=== PATIENT | female | born 1930 | race Caucasian/White ===

== ENCOUNTER → 2016-12-03 | Outpatient (CLI) | payer MEDICARE, OTHER ==
[~2016-12-03] MED LIST: AMLO1CAP12 PO; ASCO10007 PO; ASPI-557 PO; CALC600T12 PO; CHOL100055 PO; CITA10TA7 PO; CYAN10009 PO; HYDR-3989 PO; MAGN250T33 PO; METF500T4 PO; NIAC50TA4 PO; PSYL1WAF3 PO; SALINE FLUSH 10ml SYRINGE IVF ONE; SULF1TAB3 PO; VITA-358 PO
== END ==
LOC: NWCC 14:06
PROVIDERS: ATTEND Internal Medicine
DX: T81.89XA Other complications of procedures, not elsewhere classified, initial encounter (principal); Y83.8 Other surgical procedures as the cause of abnormal reaction of the patient, or of later complication, without mention of misadventure at the time of the procedure
CPT/HCPCS: 11042; A6021; A6210; A6237

== ENCOUNTER → 2016-12-17 | Outpatient (CLI) | payer MEDICARE, OTHER ==
[~2016-12-17] MED LIST changes: -SALINE FLUSH 10ml SYRINGE IVF ONE
== END ==
LOC: NWCC 11:23
PROVIDERS: ATTEND Internal Medicine
DX: T81.89XA Other complications of procedures, not elsewhere classified, initial encounter (principal); Y83.8 Other surgical procedures as the cause of abnormal reaction of the patient, or of later complication, without mention of misadventure at the time of the procedure; B96.89 Other specified bacterial agents as the cause of diseases classified elsewhere
CPT/HCPCS: 11042; 87070; 87075; 87147; 87186; 87205; A6021; A6209

== ENCOUNTER → 2016-12-31 | Outpatient (CLI) | payer MEDICARE, OTHER ==
[~2016-12-31] MED LIST changes: +APIX5TAB PO; +BENA10TA3 PO; +BENA20TA3 PO; +CYAN1TAB46 PO; +DIGO125T PO; +FURO20TA4 PO; +FURO40TA5 PO; +LEVO500T88 PO; +METO-482 PO; +POTA-81 PO; +POTA10TA16 PO
== END ==
LOC: NWCC 13:30
PROVIDERS: ATTEND Internal Medicine
DX: T81.89XA Other complications of procedures, not elsewhere classified, initial encounter (principal); Y83.8 Other surgical procedures as the cause of abnormal reaction of the patient, or of later complication, without mention of misadventure at the time of the procedure; Z87.898 Personal history of other specified conditions
CPT/HCPCS: A6021; A6209; G0463

== ENCOUNTER 2017-01-08 10:50 | Inpatient (IN) | payer MEDICARE, OTHER ==
[~2017-01-08] VITALS: Ht 165.1 cm; Wt 56.7 kg
[~2017-01-08 10:50] MED LIST changes: -APIX5TAB PO; -BENA10TA3 PO; -BENA20TA3 PO; -CYAN1TAB46 PO; -DIGO125T PO; -FURO20TA4 PO; -FURO40TA5 PO; -LEVO500T88 PO; -METO-482 PO; -POTA-81 PO; -POTA10TA16 PO
--- OUTSIDE RECORDS SUMMARY | 2017-01-08 10:54 | XMS REPORT | Referral Summary ---
Author Author [facility] Organization [facility] Address Unknown Phone Unavailable Care Team Providers Care Renal Case Manager Name Role Phone Lakshmi Aly Primary Care Physician [phone] Encounter VC Date(s): 07/09/16 - 07/09/16 [facility] [address] [place] [id number] Discharge Diagnosis: Chronic pain syndrome Discharge Diagnosis: Diabetes mellitus type II, controlled Discharge Disposition: 01-Home or Self Care Attending Physician: Laquita Aly DO Admitting Physician: Laquita Aly DO Vital Signs Most recent to 1 oldest [Reference Range]: Temperature Tympanic 36.9 degC [36.6-38.1 degC] (07/09/16 10:46 AM) Peripheral Pulse 88 bpm Rate [60-100 bpm] (07/09/16 10:46 AM) Respiratory Rate 15 br/min [14-20 br/min] (07/09/16 10:46 AM) Blood Pressure 142/70 mmHg [90-140/60-90 mmHg] *HI* (07/09/16 10:46 AM) SpO2 95 % (07/09/16 10:46 AM) Problem List Condition Effective Dates Status Health Status Informant Arthritis(Confirmed) Active Chronic pain Active syndrome(Confirmed) Generalized Active osteoarthritis (disorder)(Confirmed ) Depression(Confirmed Active ) Essential Active hypertension (disorder)(Confirmed ) High Active cholesterol(Confirme d)1 UNSEPC ESSENTIAL Active HYPERTENSION(Confirm ed)2 Osteoarthrosis, Active generalized involving unspecified(Confirme d) Osteochondropathy Active (disorder)(Confirmed ) Osteopenia(Confirmed Active ) Osteoporosis Active (disorder)(Confirmed ) jugular Active thrombosis(Confirmed ) Diabetes mellitus Active type II, controlled(Confirmed ) Type II diabetes Active mellitus uncontrolled (finding)(Confirmed) Varicose Active vein(Confirmed) 1PURE HYPERCHOLESTEROLEMIA 2See Conversion Document. Allergies, Adverse Reactions, Alerts No Known Medication Allergies Medications amLODIPine-benazepril 5 mg-20 mg oral capsule 1 caps, Oral, Daily, # 90 caps, 1 Refill(s), [facility] [id number] Start Date: 04/08/16 Status: Ordered aspirin 81 mg, 0 Refill(s) Start Date: 10/08/14 Status: Ordered B-Complex with B-12 tabs, Oral, Daily, 0 Refill(s) Start Date: 10/08/14 Status: Ordered Calcium 600+D tabs, Oral, TID, 0 Refill(s) Start Date: 10/08/14 Status: Ordered citalopram 10 mg oral tablet See Instructions, TAKE 1 TABLET BY MOUTH EVERY DAY., # 90 tabs, 1 Refill(s), Pharmacy: [facility], TAKE 1 TABLET BY MOUTH EVERY DAY. Start Date: 04/08/16 Status: Ordered magnesium oxide 250 mg oral tablet 1 tabs, Oral, Daily, 0 Refill(s) Start Date: 10/08/14 Status: Ordered Metamucil Oral, 0 Refill(s) Start Date: 10/08/14 Status: Ordered metFORMIN 500 mg oral tablet 500 mg 1 tabs, Oral, Daily, # 90 tabs, 1 Refill(s), Pharmacy: [facility] [id number], 1 tabs Oral Daily Start Date: 04/08/16 Status: Ordered niacin 50 mg oral tablet 1 tabs, Oral, Daily, # 30 tabs, 0 Refill(s) Start Date: 10/08/14 Status: Ordered Webster 5 mg-325 mg oral tablet 1 tabs, Oral, q6hr, as needed for pain, # 120 tabs, 0 Refill(s) Start Date: 07/09/16 Status: Ordered Vitamin C 1000 mg oral tablet 1 tabs, Oral, Daily, # 30 tabs, 0 Refill(s) Start Date: 10/08/14 Status: Ordered Vitamin D with Minerals oral tablet 1 tabs, Oral, Daily, # 30 tabs, 0 Refill(s) Start Date: 10/08/14 Status: Ordered vitamin E Oral, Daily, 0 Refill(s) Start Date: 10/08/14 Status: Ordered zoledronic acid 5 mg/100 mL intravenous solution 5 mg 100 mL, IV, Once, 0 Refill(s) Start Date: 08/08/14 Status: Ordered Results No data available for this section Immunizations Vaccine Date Refusal Reason pneumococcal 13-valent conjugate vaccine 10/09/15 pneumococcal 23-polyvalent vaccine 08/17/05 tetanus-diphth toxoids (Td) adult/adol 01/31/08 Procedures Procedure Date Related Diagnosis Body Site Mammogram 01/23/16 Bone densimetry normal 01/16/15 Side to Side Repair EDC Lt IF to EIP; EDC Lt 2011 RF to EDC Lt IF Parathyroidectomy R breast lumpectomy Social History Social History Type Response Smoking Status Never smoker Assessment and Plan Extracted from: Title: Office Visit Note Author: Laquita Aly DO Date: 07/09/16 Assessment/Plan Chronic pain syndrome Continue current regimen, return to clinic in 3 months. Ordered: Office Visit Level 4 Est 06535 Diabetes mellitus type II, controlled Continue current regimen, return to clinic in 3 months. A1c at that time along withother chronic disease labs. Ordered: Office Visit Level 4 Est 45120
--- OUTSIDE RECORDS SUMMARY | 2017-01-08 10:55 | XMS REPORT | Continuity of Care Document ---
Author Author [facility] Organization [facility] Address Unknown Phone Unavailable Allergies Medications Problems Procedures Results Encounters ACCT No. Visit Date/Time Discharge Status Pt. Type Provider Facility Loc./Unit Complaint [id number] 11/13/2013 13:31:00 11/13/2013 23 :59:59 CLS Outpatient
--- OUTSIDE RECORDS SUMMARY | 2017-01-08 10:55 | XMS REPORT | Referral Summary ---
Author Author [facility] Organization [facility] Address Unknown Phone Unavailable Care Team Providers Care Appliance Service Representative Name Role Phone Lakshmi Aly Primary Care Physician [phone] Encounter VC Date(s): 07/14/16 - 07/14/16 [facility], [address] [place] [address] Discharge Disposition: 01-Home or Self Care Attending Physician: Aaron Martinez APRN Admitting Physician: Aaron Martinez APRN Vital Signs Most recent to 1 oldest [Reference Range]: Temperature Tympanic 36.7 degC [36.6-38.1 degC] (07/14/16 3:06 PM) Peripheral Pulse 63 bpm Rate [60-100 bpm] (07/14/16 3:06 PM) Respiratory Rate 16 br/min [14-20 br/min] (07/14/16 3:06 PM) Blood Pressure 160/70 mmHg [90-140/60-90 mmHg] *HI* (07/14/16 3:06 PM) SpO2 98 % (07/14/16 3:06 PM) Problem List Condition Effective Dates Status Health [...] Daily, # 90 caps, 1 Refill(s), Pharmacy: [facility] [id number] Start Date: 04/08/16 Status: Ordered aspirin 81 mg, 0 Refill(s) Start Date: 10/08/14 Status: Ordered B-Complex with B-12 tabs, Oral, Daily, 0 Refill(s) Start Date: 10/08/14 Status: Ordered Calcium 600+D tabs, Oral, TID, 0 Refill(s) Start Date: 10/08/14 Status: Ordered citalopram 10 mg oral tablet See Instructions, TAKE 1 TABLET BY MOUTH EVERY DAY., # 90 tabs, 1 Refill(s), Pharmacy: [facility] [id number], TAKE 1 TABLET BY MOUTH EVERY DAY. Start Date: 04/08/16 Status: Ordered magnesium oxide 250 mg oral tablet 1 tabs, Oral, Daily, 0 Refill(s) Start Date: 10/08/14 Status: Ordered Metamucil Oral, 0 Refill(s) Start Date: 10/08/14 Status: Ordered metFORMIN 500 mg oral tablet 500 mg 1 tabs, Oral, Daily, # 90 tabs, 1 Refill(s), Pharmacy: [facility] [id number], 1 tabs Oral Daily Start Date: 04/08/16 Status: Ordered niacin 50 mg oral tablet 1 tabs, Oral, Daily, # 30 tabs, 0 Refill(s) Start Date: 10/08/14 Status: Ordered [place] 5 mg-325 mg oral tablet 1 tabs, Oral, q6hr, # 15 tabs, 0 Refill(s) Start Date: 07/14/16 Status: Ordered [place] 5 mg-325 mg oral tablet 1 tabs, [...] Smoking Status Never smoker Assessment and Plan No data available for this section
--- OUTSIDE RECORDS SUMMARY | 2017-01-08 11:35 | XMS REPORT | Continuity of Care Document ---
Author Author [facility] Organization [facility] Address Unknown Phone Unavailable Allergies Medications Problems Procedures Results Encounters ACCT No. Visit Date/Time Discharge Status Pt. Type Provider Facility Loc./Unit Complaint [id number] 11/13/2013 13:31:00 11/13/2013 23 :59:59 CLS Outpatient
--- NOTE | 2017-01-08 11:45 | NUR ---
TO CT PER CART
--- NOTE | 2017-01-08 11:57 | NUR ---
RETURNED FROM CT
[2017-01-08 12:00] LABS: HCT - HEMATOCRIT 38.1 % (36-46); HGB - HEMOGLOBIN 12.5 GM/DL (12-16); MEAN CORPUSCULAR HGB CONC(MCHC 32.8 GM/DL (31-37); MEAN CORPUSCULAR VOLUME 91.6 UM3 (80-100); MEAN PLATELET VOLUME 10.1 UM3 (9.4-12.4); RED BLOOD COUNT 4.16 M/MM3 (4.00-5.20); WBC - WHITE BLOOD COUNT 11.6 T/MM3 (4.5-11.0)
--- NOTE | 2017-01-08 12:14 | DI ---
Indication: ITS.REASON: weakness PROCEDURE: CT HEAD W/O CONTRAST: Encounter: Initial Comparison: None Technique: Axial CT images through the head were performed without contrast. Iterative Reconstruction dose reducing technique was utilized. FINDINGS: Mild generalized atrophy. The ventricles are of normal size, shape, and contour for the patient's age. There are scattered areas of low attenuation in the white matter which most likely represent changes from chronic microvascular ischemia. The brainstem, cerebellum, and cerebral hemispheres otherwise have a normal morphology and CT attenuation. There is no evidence of midline displacement. No hemorrhage, signs of acute territorial stroke, mass effect, mass lesions, or edema is evident. The visualized portions of the skull base, midface, and calvarium demonstrate no abnormality. The paranasal sinuses are well aerated and free of significant disease. The tympanic and mastoid cavities appear normal. IMPRESSION: No acute intracranial abnormality or hemorrhage. .
[2017-01-08 12:15] LABS: ALBUMIN 3.5 G/DL (3.5-5.0); ALKALINE PHOSPHATASE 137 U/L (38-126); ALT (SGPT) 50 U/L (9-52); ANION GAP 14 MEQ/L (5-15); AST (SGOT) 56 U/L (14-36); BAND NEUTROPHILS # 0.2 T/MM3; BUN/CREATININE RATIO 34 RATIO (6-26); CALCIUM 8.6 MG/DL (8.4-10.2); CHLORIDE 94 MEQ/L (98-107); CO2 - CARBON DIOXIDE 27 MEQ/L (22-30); CREATININE 0.7 MG/DL (0.7-1.2); GLOMERULAR FILTRATION RATE 79; GLUCOSE 238 MG/DL (65-110); LYMPHOCYTES # (MANUAL) 0.3 T/MM3 (1-4.8); MONOCYTES # (MANUAL) 0.6 T/MM3 (0-0.8); NEUTROPHILS #(MANUAL)-ABSOLUTE 10.4 T/MM3 (1.8-7.7); POTASSIUM 3.7 MEQ/L (3.6-5); SODIUM 135 MEQ/L (134-144); TOTAL CELLS COUNTED 100 %; TOTAL PROTEIN 6.9 G/DL (6.3-8.2)
--- NOTE | 2017-01-08 12:15 | DI ---
Indication: ITS.REASON: generalized weakness PROCEDURE: CHEST 1 VIEW: Encounter: Initial Comparison: None Findings: Increased interstitial prominence. Possible trace effusions. Upper lung morrison are clear. No pneumothorax or focal lobar consolidation. Cardiac silhouette is severely enlarged. Mediastinal contours are grossly normal. Impression: 1. Increased interstitial markings could be due to mild pulmonary edema or atypical/viral pneumonia. 2. Severely enlarged cardiac silhouette could be due to cardiomegaly or pericardial effusion. .
[2017-01-08 12:23] LABS: BLOOD, URINE 3+ (NEGATIVE); COLOR,URINE YELLOW (YELLOW); LEUKOCYTE ESTERASE ,URINE NEGATIVE (NEGATIVE); NITRITE,URINE NEGATIVE (NEGATIVE); UROBILINOGEN,URINE 0.2 EU/DL (NORMAL)
[2017-01-08 12:31] LABS: SQUAMOUS EPITHELIAL CELL,UR NONE SEEN; TRANSITIONAL EPI CELLS,URINE 0-1 /HPF; WBC,URINE NONE SEEN /HPF (0-5)
[2017-01-08 12:32] LABS: BACTERIA,URINE 2+ (NEGATIVE); COARSE GRANULAR CASTS,URINE 0-1 /LPF; FINE GRANULAR CASTS,URINE 0-1 /LPF
--- NOTE | 2017-01-08 12:47 | NUR ---
DR PHELPS IN
--- NOTE | 2017-01-08 13:06 | NUR ---
SONO AT BEDSIDE
--- NOTE | 2017-01-08 13:10 | NUR ---
REPORT TO DOUGLAS CRAIG
[2017-01-08] MEDS ORDERED: SALINE FLUSH 10ml SYRINGE ONE (13:12)
[2017-01-08] MEDS ORDERED: IOHEXOL 350 MG/ML 100ml INJECTION ONE (13:12)
[2017-01-08] MEDS ORDERED: NORMAL SALINE 100 ML ONE (13:12)
--- NOTE | 2017-01-08 13:32 | NUR ---
STATUS PT TO COMMODE WITH MINIMAL ASSIST
--- NOTE | 2017-01-08 13:37 | NUR ---
ELIMINATION PT HAS LARGE BM AND ALSO URINE OUTPUT
--- NOTE | 2017-01-08 13:37 | NUR ---
PT TO CT
--- NOTE | 2017-01-08 13:39 | DI ---
Indication: ITS.REASON: Leg pain and weakness PROCEDURE: US VENOUS DUPLEX, LOWER EXT BI: Encounter: Initial Comparison: None Technique: Color Doppler duplex and grayscale sonographic imaging of both lower extremities was performed. Findings: There is no evidence for acute deep venous thrombosis in either thigh. Specifically, serial graded compression was performed from the inguinal ligament to the popliteal bifurcation, bilaterally, demonstrating appropriate compressibility of the deep venous system. In addition, color and pulsed Doppler demonstrate appropriate spontaneous flow, variation with respiration, and augmentation with calf compression. At the ankle, normal flow is identified in the posterior tibial veins; these vessels are also normal in caliber. Impression: No evidence of acute DVT in either lower limb. .
--- NOTE | 2017-01-08 14:35 | DI ---
Indication: ITS.REASON: abnl. CXR PROCEDURE: CTA PE/CTA AORTA: Encounter: Initial Comparison: Chest x-ray from today Technique: Axial CT angiographic imaging of the chest, abdomen and pelvis was performed before and after the administration of intravenous contrast. Coronal and sagittal MIP reconstructed images were created and reviewed. Three-dimensional surface shaded volume rendered imaging of the aorta and arterial vasculature was created by the technologist on a dedicated workstation under the direction of the interpreting radiologist and reviewed. CT angiography for pulmonary embolus was also performed in the pulmonary angiographic phase. Coronal and sagittal MIP reconstructed images were created and reviewed. Automated Exposure Control and Iterative Reconstruction dose reducing techniques were utilized. Contrast: 82 mL Omnipaque 350 Findings: CT angiogram of the chest for pulmonary embolus Pulmonary arteries: Contrast bolus is diagnostic to the segmental pulmonary arterial level. No filling defects identified to suggest a pulmonary embolus. Other findings: Small right and trace left pleural effusions with minimal dependent atelectasis. Motion artifact. No pneumonia or pneumothorax seen. The central airways are patent. No gross pulmonary masses. No axillary lymphadenopathy. Thyroid goiter. Mildly prominent mediastinal nodes could be reactive or due to chronic granulomatous disease. Heart is severely enlarged without pericardial effusion. Mitral valvular and coronary artery calcifications. Impression: No pulmonary embolus. Small nonspecific right pleural effusion. No focal pneumonia. CT angiogram of the chest for aorta with and without contrast: Findings: Noncontrast images show no evidence of intramural hematoma. Postcontrast images show no evidence of aortic aneurysm or dissection. There is ectasia of the ascending aorta at 4.3 cm diameter. Descending thoracic aorta is normal in caliber. For other findings please see the CT angiogram of the chest for PE report above. Impression: No evidence of acute aortic syndrome acute abnormality in the chest. Severe cardiomegaly. Ascending aortic ectasia. CT angiogram of the abdomen and pelvis with and without contrast: No evidence of aortic aneurysm or dissection. There is scattered atherosclerotic plaque in the arterial vasculature which is compatible with the patient's advanced age. The arterial phase liver, gallbladder, kidneys, spleen and pancreas show no gross abnormality. Motion artifact. No evidence of a bowel obstruction. The celiac and SMA are patent. Mild stenosis at the left renal artery origin. Mild right renal artery stenosis as well. Bone windows show no acute findings. 3-D imaging shows no new information. Impression: No evidence of acute aortic syndrome. No aneurysm or dissection. .
[2017-01-08] MEDS ORDERED: NORMAL SALINE 500 ML IV ONE (14:45)
--- NOTE | 2017-01-08 14:48 | ERPDOC ---
Departure Disposition Decision Date: Jan 08, 2017 Disposition Decision Time: 18:47 Disposition: 02 TO [facility] Impression Impression Impression: Primary Impression: Dehydration Additional Impression: Urinary tract infection Urinary tract infection type: acute cystitis Hematuria presence: with hematuria Qualified Codes: N30.01 - Acute cystitis with hematuria Severity: Moderate Condition: Improved Seen By: Physician only Referrals: ALE SHIELDS DO (Family) Problems/Meds/Labs Reviewed?: Yes Medications reviewed and manag: Yes Follow up care ordered?: Yes Mental Status: Alert, Oriented HPI - General Medical General Chief Complaint: Weakness/Neuro Symptoms Stated Complaint: RIGHT HIP PAIN Time Seen by Provider: 11:26 Source: patient, family Exam Limitations: no limitations HPI - General Medical Initial Comments 86-year-old female presents to the emergency department with a chief complaint of generalized weakness. Patient noted onset of symptoms one day ago. Symptoms have been persistent in nature since onset. Symptoms had a gradual progression in nature since onset. Patient denies any pain or discomfort. Patient was at home when the symptoms began. No radiation of symptoms. She does not note any exacerbating or remitting factors. Patient states that the generalized weakness is to much for her to perform her activities of daily living. She denies any recent change in medication. Denies any recent trauma or injury. No other complaints or associated symptoms. Occurred At: home Onset: Gradual Allergies: Coded Allergies: No Known Drug Allergies (Unverified Allergy, Unknown, 01/08/17) Past History Past Medical History Cardiac: A-fib Surgical History Denies Surgeries Family History Family History: Negative Vaccines Hx Influenza Vaccination: No Hx Pneumococcal Vaccination: Yes (10-09-15) Social History Smoking Status: Never smoker Does patient use chewing tobac: No Second Hand Exposure: No Substance Use Type: does not use Alcohol Intake: none Review of Systems Constitutional Constitutional: DENIES: chills, fever Eyes General: DENIES: erythema, exudate Lids/Accessories: DENIES: erythema, swelling Vision: DENIES: acuity, blurring ENMT Ears: DENIES: drainage, erythema Hearing: DENIES: hearing loss Balance: DENIES: ataxia, falling to one side Sinuses: DENIES: congestion, pain Nose: DENIES: nosebleeds, pain Mouth/Throat: DENIES: painful swallowing, sore throat Teeth: DENIES: pain Jaw: DENIES: pain Cardiovascular Cardiac: DENIES: chest pain, dyspnea on exertion Rhythm/Rate: irregular beat, DENIES: palpitations Vascular: DENIES: pedal edema, unilateral swelling Pulmonary Respiratory: DENIES: cough, dyspnea, pleuritic chest pain, sputum GI Upper Abdomen: DENIES: nausea, pain, vomiting Lower Abdomen: DENIES: diarrhea, pain General: DENIES: dysuria, frequency Musculoskeletal General: DENIES: joint pain, tenderness Integumentary Skin: DENIES: itching, rash Neurological General: weakness (generalized), DENIES: headache, numbness Psychiatric Psychiatric: DENIES: emotional instability, suicidal ideation/attempt Endocrine Endocrine: DENIES: polydipsia, polyphagia Hematologic/Lymphatic Hematologic/Lymphatic: DENIES: frequent nosebleeds, lymphadenopathy Allergic/Immunological Allergic/Immunoligical: DENIES: allergic reactions, hives Physical Exam General General Nourishment: well nourished, well developed, appears stated age, no acute distress, adult General Body Habitus: well groomed Vitals and Pain First Documented Vital Signs Date Time Temp Pulse Resp B/P Pulse Ox O2 Delivery O2 Flow Rate FiO2 01/08/17 10:52 99.0 124 24 107/76 92 Room Air Weight: Kilograms: 57.000 Height (feet): 5 Height (inches): 6.00 Triage Pain Scale: RN VS reviewed by Provider: Yes Normal Exams: Head: Normocephalic w/o trauma Eyes: Pupils are PERRLA w/ EOMI, No scleral icterus, irritation, or foreign bodies noted ENMT: No facial trauma, nasal exudates, pharyngeal erythema, or exudates are noted Dental: No fractured, loose, or missing teeth noted Neck: Full range of motion, without adenopathy, JVD, bruits or thyromegaly Chest/Resp: Clear all morrison, with good airflow, and symmetry bilaterally CV: Regular rate and rhythm, without murmur or gallop, Pulses 2+ all extremities, capillary refill, <2 seconds all ext., no pedal edema noted Abdomen: Bowel sounds positive, soft, non-tender, non-distended, no hepatosplenomegaly, masses or bruits noted Lymphatic: No lymphadenopathy, or lymphedema noted Musculoskeletal: No tenderness, or deformity noted, good range of motion, all extremities Integumentary: No rashes, hives, or bruising noted, hair and nails, without abnormality Neurologic: Patient is alert, and oriented, cranial nerves, motor/sensory/ cerebellar, exams w/o gross deficits, to observation Psychiatric: Patient exhibits, appropriate attention, emotion and affect Differential Diagnoses Considering: Hypo/Hyperglycemia, Medication Effect, Metabolic, UTI, Other ( dehydration) Progress Results/Orders Orders Procedure Category Date Status Time Cbc W/Auto LAB 01/08/17 Complete Diff-Reflex Manual Cmp - Comprehensive LAB 01/08/17 Complete Metabolic Troponin I W LAB 01/08/17 Complete Hemolysis Index EKG EKG 01/08/17 Taken Catheterize For Ua DK 01/08/17 In Process 11:27 Ct Head W/O Contrast CT 01/08/17 Resulted 11:27 Chest 1 View RAD 01/08/17 Resulted 11:27 UA, LAB 01/08/17 Complete Dip&Micro(Complete) & 12:16 Us Venous Duplex, US 01/08/17 Resulted Lower Ext Bi 12:46 Cta Pe/Cta Aorta CT 01/08/17 Resulted 12:53 Iohexol (Omnipaque) PHA 01/08/17 Complete 13:12 Normal Saline (Ns) PHA 01/08/17 Complete 13:12 Saline Flush (Iv PHA 01/08/17 Complete Flush) 13:12 Normal Saline (Ns) PHA 01/08/17 Complete 14:45 Lab Results Laboratory Tests Test 01/08/17 11:53 01/08/17 12:16 White Blood Count 11.6T/MM3 Red Blood Count 4.16M/MM3 Hemoglobin 12.5GM/DL Hematocrit 38.1% Mean Corpuscular Volume 91.6UM3 Mean Corpuscular Hemoglobin 30.0UUG Mean Corpuscular Hemoglobin Concent 32.8GM/DL RDW Standard Deviation 51.4FL Platelet Count 141T/MM3 Mean Platelet Volume 10.1UM3 Immature Granulocyte % (Auto) % Neutrophils (%) (Auto) % Lymphocytes (%) (Auto) % Monocytes (%) (Auto) % Eosinophils (%) (Auto) % Basophils (%) (Auto) % Absolute Immature Granulocyte (auto T/MM3 Absolute Neutrophils (auto) T/MM3 Absolute Lymphocytes (auto) T/MM3 Absolute Monocytes (auto) T/MM3 Absolute Eosinophils (auto) T/MM3 Absolute Basophils (auto) T/MM3 Neutrophils % (Manual) 90.0% Band Neutrophils % 2.0% Lymphocytes % (Manual) 3.0% Monocytes % (Manual) 5.0% Absolute Neutrophils (Manual) 10.4T/MM3 Band Neutrophils # 0.2T/MM3 Lymphocytes # (Manual) 0.3T/MM3 Monocytes # (Manual) 0.6T/MM3 Red Cell Morphology Comment Normal Turbidity < 20 Sodium Level 135MEQ/L Potassium Level 3.7MEQ/L Chloride Level 94MEQ/L Carbon Dioxide Level 27MEQ/L Anion Gap 14MEQ/L Blood Urea Nitrogen 24.0MG/DL Creatinine 0.7MG/DL Glomerular Filtration Rate Calc 79 BUN/Creatinine Ratio 34RATIO Glucose Level 238MG/DL Calculated Osmolality 272MOSM/KG Calcium Level 8.6MG/DL Total Bilirubin 1.50MG/DL Icterus Index < 2 Aspartate Amino Transf (AST/SGOT) 56U/L Alanine Aminotransferase (ALT/SGPT) 50U/L Alkaline Phosphatase 137U/L Troponin I 0.037ng/ml Total Protein 6.9G/DL Albumin 3.5G/DL Globulin 3.4G/DL Albumin/Globulin Ratio 1.0RATIO Thyroid Stimulating Hormone (TSH) 1.27MIU/L Chemistry Specimen Hemolysis 19 Urine Collection Type Straight cath Urine Color Yellow Urine Turbidity Sl cloudy Urine pH 5.0 Urine Specific [place] 1.025 Urine Protein 2+ Urine Glucose (UA) Negative Urine Ketones Trace Urine Blood 3+ Urine Nitrite Negative Urine Bilirubin Negative Urine Urobilinogen 0.2EU/DL Urine Leukocyte Esterase Negative Urine RBC 1-3/HPF Urine WBC None seen/HPF Urine Squamous Epithelial Cells None seen Urine Transitional Epithelial Cells 0-1/HPF Urine Amorphous Urates Many Urine Bacteria 2+ Urine Fine Granular Casts 0-1/LPF Urine Coarse Granular Casts 0-1/LPF Urine Culture Indicated Cult not indicated Medications Current ED Medications Iohexol 1 bottle 1 bottle STK-MED ONCE .ROUTE ; Start 01/08/17 at 13:12; Stop at 13:13; Status DC Sodium Chloride (NS) 100 ml @ As Directed STK-MED ONCE .ROUTE ; Start 01/08/17 at 13:12; Stop 01/08/17 at 13:13; Status DC Sodium Chloride 10 ml 10 ml STK-MED ONCE .ROUTE ; Start 01/08/17 at 13:12; Stop 01/08/17 at 13:13; Status DC Sodium Chloride (NS) 500 ml @ 999 mls/hr Q31M ONCE IV Last administered on t 15:52; Start 01/08/17 at 14:45; Stop 01/08/17 at 15:15; Status DC Progress Progress Labs / imaging were discussed in detail with the patient and questions are answered. Patient is given gentle IV hydration. Patient is given Rocephin 1 g intravenously times one for potential urinary tract infection. Patient will be admitted to the service of the hospitalist for generalized weakness, dehydration , and potential urinary tract infection. Patient and family are in agreement with the current plan of management. She is admitted to the hospital in improved condition. There are no further orders from the accepting physician who is in agreement with the current plan of management. Patient is admitted to the service of Dr. Kelly in improved condition for further evaluation and treatment. EKG EKG : Rate: >100 Rhythm: atrial fibrillation ST/T: normal Interpreted by: signing physician Xray Xray : Xray: CXR Portable Interpretation: Abnormal, Reviewed Written Report CT CT : CT: Head no contrast Interpretation: Normal (CTA chest/abdomen/pelvis: No PE. No acute aortic pathology. No infiltrate. No acute processes.), Reviewed Written Report Ultrasound US : Ultrasound: Venous Doppler Interpretation: Normal, Reviewed Written Report BRETT PHELPS DO Jan 08, 2017 14:48
[2017-01-08] MEDS ORDERED: CEFTRIAXONE I.V. (ER USE ONLY) 1 G in NORMAL SALINE 100 ML IV ONE (15:00)
--- OUTSIDE RECORDS SUMMARY | 2017-01-08 15:04 | XMS REPORT | Continuity of Care Document ---
Author Author [facility] Organization [facility] Address Unknown Phone Unavailable Allergies Medications Problems Procedures Results Encounters ACCT No. Visit Date/Time Discharge Status Pt. Type Provider Facility Loc./Unit Complaint [id number] 11/13/2013 13:31:00 11/13/2013 23 :59:59 CLS Outpatient
--- NOTE | 2017-01-08 15:25 | NUR ---
REPORT THIS NURSE RECEIVED REPORT FROM DOUGLAS RN AT THIS TIME, NO CONCERNS AT THIS TIME.
--- NOTE | 2017-01-08 15:25 | NUR ---
REPORT TO TATE CRAIG ON MEDICAL
--- NOTE | 2017-01-08 15:35 | NUR ---
ADMIT PT ADMITTED TO ROOM 143 AT THIS TIME. PT ALERT AND ORIENTED X3. PT ON RA, DENIES SOA. WILL CONTINUE TO MONITOR.
--- NOTE | 2017-01-08 15:35 | NUR ---
IVF 500 NS PULLED AND SENT WITH PT BUT NONE OF IT INFUSED THE ROCEPHIN WAS INFUSING AT TIME OF ADMIT
[2017-01-08 15:40] VITALS: BP 128/66; PULSE 94; RESP 18; TEMP 98.1; O2SAT 91
[2017-01-08 15:47] VITALS: Ht 165.1 cm; Wt 56.7 kg
[2017-01-08] MEDS ORDERED: PRN ORDERS MC (16:00)
[2017-01-08] MEDS ORDERED: ONDANSETRON 4mg/2ml INJECTION IV PRN (16:00)
[2017-01-08] MEDS ORDERED: MAG-AL + SIM LIQUID 30 ML UDC PO PRN (16:00)
[2017-01-08] MEDS ORDERED: MILK OF MAGNESIA 30 ML SUSP PO PRN (16:00)
[2017-01-08] MEDS ORDERED: ACETAMINOPHEN 325 MG TABLET PO PRN (16:00)
[2017-01-08] MEDS ORDERED: BISACODYL 10 MG SUPPOSITORY RECTALLY PRN (16:00)
[2017-01-08] MEDS ORDERED: HYDROCODONE/APAP 5 mg/325 mg TABLET PO PRN (16:00)
[2017-01-08] MEDS ORDERED: NITROGLYCERIN 0.4 MG SUBLINGUAL TABLET SL PRN (16:00)
[2017-01-08] MEDS: NORMAL SALINE 1,000 ML IV SCH (16:26)
--- NOTE | 2017-01-08 16:41 | HPPDOC ---
CAITIE CARRIZALES V DIRECTOR OF ACCREDITATION 01/08/17 1628: HPI - Adult Date DATE: 01/08/17 TIME: 16:25 General Chief Complaint: weakness History of Present Illness Patient is a pleasant 86-year-old female who lives independently at home with her cat. Morning she woke up and felt we could not get out of her chair. She called EMS for help. They brought her to the emergency room for further evaluation and treatment. Upper studies were obtained. White count 7 be slightly elevated at 11.6, hemoglobin 12.5, hematocrit 38.2, platelet count 141 , 90 percent neutrophils. Sodium is 135, potassium 3.7, BUNs 24, creatinine 0.7 , glucose 238. Total bilirubin is elevated at 1.5. TSH 1.27. A urinalysis is obtained showing 2+ protein, trace ketones, 3+ blood with 2+ bacteria. Chest x- ray and CT of the chest and abdomen were performed indicating no acute findings. Bilateral lower extremity venous Doppler was obtained showing no acute evidence of DVT. She was afebrile at 98.8, was tachycardic at 109. Room air saturations 92%. Given her weakness and findings of UTI Hospital services will contact accepted patient for outpatient omission for further evaluation and treatment. Past Medical History Past Medical History HTN Diabetes Mellitus chronic wound of elbow Surgical History Patient's Surgical History: Vaginal Hysterectomy Parathyroidectomy ORIF of left elbow Current Medications Home Meds Active Scripts Hydrocodone/Apap ([place] 5-325 Tablet) 5-325 Tablet, 1 TAB PO HS and PRN for PAIN , #30 TAB 0 Refills Prov:ORLANDO HARDIN MD 07/18/16 Reported Medications Aspirin (Aspir 81) 81 Mg Tablet.dr, 81 MG PO DAILY 07/15/16 Calcium Carbonate (Calcium) 600 Mg Tablet, 600 MG PO BID 07/15/16 Magnesium Oxide (Magnesium) 250 Mg Tablet, 250 MG PO DAILY, TAB 07/15/16 Psyllium Seed (with Sugar) (Metamucil Fiber Wafer) 1 Each Wafer, 2 TAB PO DAILY 07/15/16 Niacin (Niacin) 50 Mg Tablet, 50 MG PO TID 07/15/16 Ascorbic Acid (Vitamin C) 1,000 Mg Tablet, 1000 MG PO BID 07/15/16 Cholecalciferol (Vitamin D3) (Vitamin D) 1,000 Unit Capsule, 1000 UNIT PO DAILY 07/15/16 Vitamin E (Dl,Tocopheryl Acet) (Vitamin E) 1,000 Unit Capsule, 1000 UNIT PO Fr@ 0800 07/15/16 Citalopram Hydrobromide (Citalopram HBr) 10 Mg Tablet, 10 MG PO DAILY 07/15/16 Amlodipine Besylate/Benazepril (Amlodipine-Benazepril 5-20 mg) 1 Each Capsule, 1 CAP PO DAILY 07/15/16 Metformin HCl (Metformin HCl) 500 Mg Tablet, 500 MG PO DAILY 07/15/16 Allergies: Coded Allergies: No Known Drug Allergies (Unverified Allergy, Unknown, 01/08/17) Family History Family History: Father- CAD Mother- Ovarian Cancer, at 57 Social History Smoking Status: Never smoker Does patient use chewing tobac: No Second Hand Exposure: No Substance Use Type: does not use Alcohol Intake: none Advance Directives: No DPOA for Healthcare Only Review of Systems Constitutional: REPORTS: weakness Neurological General: poor coordination, weakness All Other Systems All Other Systems: Reviewed Physical Exam General General Nourishment: well nourished Vital Signs Vital Signs Date Time Temp Pulse Resp B/P Pulse Ox O2 Delivery O2 Flow Rate FiO2 01/08/17 15:40 98.1 94 18 128/66 91 Room Air Height (Feet): 5 Height (Inches): 5.00 Eyes Brief: FOUND: EOMI ENMT Brief: FOUND: mucosa moist Respiratory Brief: FOUND: clear all morrison, equal bilaterally Cardiovascular (brief) Cardiac Brief: FOUND: pedal edema, regular rate, regular rhythm Capillary Refill: <2 sec Abdomen (brief) Abdominal Brief: FOUND: BS normo active x4, soft Musculoskeletal (brief) Musculoskeletal Brief: FOUND: extremities move equally Integumentary (brief) Integumentary Brief: FOUND: dry, pink, warm Neurologic (brief) Neurological Brief: FOUND: cranial 2-12 intact Neurologic RN Documented GCS Eye Opening: Verbal: Motor: Total: Psychiatric (brief) FOUND: alert, normal affect, oriented Laboratory Laboratory Tests Test 01/08/17 11:53 01/08/17 12:16 White Blood Count 11.6T/MM3 Red Blood Count 4.16M/MM3 Hemoglobin 12.5GM/DL Hematocrit 38.1% Mean Corpuscular Volume 91.6UM3 Mean Corpuscular Hemoglobin 30.0UUG Mean Corpuscular Hemoglobin Concent 32.8GM/DL RDW Standard Deviation 51.4FL Platelet Count 141T/MM3 Mean Platelet Volume 10.1UM3 Immature Granulocyte % (Auto) % Neutrophils (%) (Auto) % Lymphocytes (%) (Auto) % Monocytes (%) (Auto) % Eosinophils (%) (Auto) % Basophils (%) (Auto) % Absolute Immature Granulocyte (auto T/MM3 Absolute Neutrophils (auto) T/MM3 Absolute Lymphocytes (auto) T/MM3 Absolute Monocytes (auto) T/MM3 Absolute Eosinophils (auto) T/MM3 Absolute Basophils (auto) T/MM3 Neutrophils % (Manual) 90.0% Band Neutrophils % 2.0% Lymphocytes % (Manual) 3.0% Monocytes % (Manual) 5.0% Absolute Neutrophils (Manual) 10.4T/MM3 Band Neutrophils # 0.2T/MM3 Lymphocytes # (Manual) 0.3T/MM3 Monocytes # (Manual) 0.6T/MM3 Red Cell Morphology Comment Normal Turbidity < 20 Sodium Level 135MEQ/L Potassium Level 3.7MEQ/L Chloride Level 94MEQ/L Carbon Dioxide Level 27MEQ/L Anion Gap 14MEQ/L Blood Urea Nitrogen 24.0MG/DL Creatinine 0.7MG/DL Glomerular Filtration Rate Calc 79 BUN/Creatinine Ratio 34RATIO Glucose Level 238MG/DL Calculated Osmolality 272MOSM/KG Calcium Level 8.6MG/DL Total Bilirubin 1.50MG/DL Icterus Index < 2 Aspartate Amino Transf (AST/SGOT) 56U/L Alanine Aminotransferase (ALT/SGPT) 50U/L Alkaline Phosphatase 137U/L Troponin I 0.037ng/ml Total Protein 6.9G/DL Albumin 3.5G/DL Globulin 3.4G/DL Albumin/Globulin Ratio 1.0RATIO Chemistry Specimen Hemolysis 19 Urine Collection Type Straight cath Urine Color Yellow Urine Turbidity Sl cloudy Urine pH 5.0 Urine Specific [place] 1.025 Urine Protein 2+ Urine Glucose (UA) Negative Urine Ketones Trace Urine Blood 3+ Urine Nitrite Negative Urine Bilirubin Negative Urine Urobilinogen 0.2EU/DL Urine Leukocyte Esterase Negative Urine RBC 1-3/HPF Urine WBC None seen/HPF Urine Squamous Epithelial Cells None seen Urine Transitional Epithelial Cells 0-1/HPF Urine Amorphous Urates Many Urine Bacteria 2+ Urine Fine Granular Casts 0-1/LPF Urine Coarse Granular Casts 0-1/LPF Urine Culture Indicated Cult not indicated Sepsis Diagnostic Criteria Sepsis Confirmed/Suspected Infection: No Assessment & Plan Problems: (1) Dehydration Status: Acute Assessment & Plan: Present on admission (2) Leukocytosis Status: Acute (3) Urinary tract infection Status: Acute (4) Weakness Status: Acute (5) Chronic wound of extremity Status: Chronic Assessment & Plan: Left elbow (6) HTN (hypertension) Status: Chronic (7) Diabetes mellitus Status: Chronic Assessment Admit to outpatient observation for dehydration and UTI under the care of Dr. Briseno. Start IV fluids, NaCl at 75ml/hr for gentle hydration Rocephin 1gm IV daily initiated while the emergency room for treatment of acute urinary tract infection. Due to her increased and recent weakness, we will consult PT/OT for evaluation and treatment. [facility] currently manages her elbow wound. We will notify them that she is here. She had her last drsg change yesterday. She gets this done twice weekly. Continue Lotrel for BP control. Vitals are stable, currently 98.1, HR 94, R 18, BP 128/66, 91% RA Holding Metformin due to contrast with Radiology today. Blood glucose testing AC and HS. Will order regular insulin sliding scale since her oral agent is on hold. 1800 calorie Diabetic diet SCDs for DVT prophylaxis. Will discuss further plan of care with attending, Dr. Haq. At time of discharge medical care will return to primary care provider Dr Aly DVT Prophylaxis: SCD'S Code Status Do Not Resuscitate Hospital Course Summary Disclaimer The hospital course summary below is not to be considered part of the above Progress Note. Hospital Course Summary Admit to outpatient observation for dehydration and UTI under the care of Dr. Briseno. Start IV fluids, NaCl at 75ml/hr for gentle hydration Rocephin 1gm IV daily initiated while the emergency room for treatment of acute urinary tract infection. Due to her increased and recent weakness, we will consult PT/OT for evaluation and treatment. [facility] currently manages her elbow wound. We will notify them that she is here. She had her last drsg change yesterday. She gets this done twice weekly. Continue Lotrel for BP control. Vitals are stable, currently 98.1, HR 94, R 18, BP 128/66, 91% RA Holding Metformin due to contrast with Radiology today. Blood glucose testing AC and HS. Will order regular insulin sliding scale since her oral agent is on hold. 1800 calorie Diabetic diet SCDs for DVT prophylaxis. Will discuss further plan of care with attending, Dr. Haq. At time of discharge medical care will return to primary care provider RADHA Miller MD 01/08/17 5893: Past Medical History Current Medications Home Meds Active Scripts Hydrocodone/Apap ([place] 5-325 Tablet) 5-325 Tablet, 1 TAB PO HS and PRN for PAIN , #30 TAB 0 Refills Prov:ORLANDO HARDIN MD 07/18/16 Reported Medications Aspirin (Aspir 81) 81 Mg Tablet., 81 MG PO DAILY 07/15/16 Calcium Carbonate (Calcium) 600 Mg Tablet, 600 MG PO BID 07/15/16 Magnesium Oxide (Magnesium) 250 Mg Tablet, 250 MG PO DAILY, TAB 07/15/16 Psyllium Seed (with Sugar) (Metamucil Fiber Wafer) 1 Each Wafer, 2 TAB PO DAILY 07/15/16 Niacin (Niacin) 50 Mg Tablet, 50 MG PO TID 07/15/16 Ascorbic Acid (Vitamin C) 1,000 Mg Tablet, 1000 MG PO BID 07/15/16 Cholecalciferol (Vitamin D3) (Vitamin D) 1,000 Unit Capsule, 1000 UNIT PO DAILY 07/15/16 Vitamin E (Dl,Tocopheryl Acet) (Vitamin E) 1,000 Unit Capsule, 1000 UNIT PO Fr@ 0800 07/15/16 Citalopram Hydrobromide (Citalopram HBr) 10 Mg Tablet, 10 MG PO DAILY 07/15/16 Amlodipine Besylate/Benazepril (Amlodipine-Benazepril 5-20 mg) 1 Each Capsule, 1 CAP PO DAILY 07/15/16 Metformin HCl (Metformin HCl) 500 Mg Tablet, 500 MG PO DAILY 07/15/16 Allergies: Coded Allergies: No Known Drug Allergies (Unverified Allergy, Unknown, 01/08/17) Assessment & Plan Plan/Intensity of Service Have independently interviewed and examined pt. Chart reviewed. Case discussed with ED physician and my DIRECTOR OF ACCREDITATION. Care plan developed with my supervision; agree with above. Legs feeling weak this morning. Could not get out of chair. Had family come to help, but noticed legs very weak and unsteady when trying to walk. No pain to leg, just feel more full and heavy. No recent illness. Eating has been stable. No n/v. Bowel stable - no diarrhea. Breathing well. No chest pressure or pain. Lungs: decreased CV irregular with murmur AB: soft nt/nd MSE: awake alert appropriate Plan: OBS, IVF for hydration, Rocephin for urinary coverage, PT to see tomorrow - nursing to ambulate pt, monitor lab, SCD for DVT prevention, may continue home medications except for holding metformin due to IV contrast given in ED. CAITIE CARRIZALES APRN Jan 08, 2017 16:28 RADHA HAQ MD Jan 08, 2017 18:33
--- NOTE | 2017-01-08 18:59 | NUR ---
SHIFT SUMMARY PT ALERT AND ORIENTED X3. PT ON RA, DENIES SOA. PT DENIES PAIN AT THIS TIME, DENIES N/V. IVF INFUSING ORDERED INTO RIGHT HAND. ADEQUATE URINE OUTPUT, BM THIS SHIFT. PT ABLE TO MAKE NEEDS KNOWN. BED ALARM ON, CALL LIGHT WITHIN REACH.
[2017-01-08] MEDS: NIACIN 100 MG TABLET PO SCH (20:32)
[2017-01-08] MEDS: HYDROCODONE/APAP 5 mg/325 mg TABLET PO SCH (21:58)
[2017-01-08 23:13] VITALS: BP 137/70; PULSE 135; RESP 30; TEMP 99.2; O2SAT 83
[2017-01-08 23:16] VITALS: BP 131/79; PULSE 124; RESP 28; TEMP 99.2; O2SAT 92
[2017-01-09] VITALS (8 sets, daily range): BP systolic 132–135; BP diastolic 67–76; PULSE 95–115; RESP 16–32; TEMP 98.5–98.9; O2SAT 87–95
--- NOTE | 2017-01-09 04:54 | NUR ---
summary patient rested well. up x1 with cane and gait belt, slightly unsteady at times. currently on 1l nc due to decreased O2 around midnight, patient was also tachycardic at 120s and diaphoretic. patient's iv was pulled out accidentally, new site placed without difficulty. c/o slight discomfort, scheduled pain medications given as charted. no new concerns.
[2017-01-09 05:45] LABS: BASOPHILS % (AUTO) 0.2 % (0-2); EOSINOPHILS % (AUTO) 0.4 % (0-4); HCT - HEMATOCRIT 38.8 % (36-46); HGB - HEMOGLOBIN 12.6 GM/DL (12-16); IMMATURE GRANULOCYTE # (AUTO) 0.01 T/MM3 (0.00-0.03); IMMATURE GRANULOCYTE % (AUTO) 0.1 % (0.0-0.5); LYMPHOCYTES # (AUTO) 1.1 T/MM3 (1-4.8); LYMPHOCYTES % (AUTO) 11.3 % (23-45); MEAN CORPUSCULAR HGB 30.1 UUG (26-34); MEAN CORPUSCULAR HGB CONC(MCHC 32.5 GM/DL (31-37); MEAN CORPUSCULAR VOLUME 92.6 UM3 (80-100); MEAN PLATELET VOLUME 10.6 UM3 (9.4-12.4); MONOCYTES % (AUTO) 10.9 % (0-9.0); NEUTROPHILS #(AUTO)-ABSOLUTE 7.3 T/MM3 (1.8-7.7); NEUTROPHILS % (AUTO) 77.1 % (33-66); RED BLOOD COUNT 4.19 M/MM3 (4.00-5.20); WBC - WHITE BLOOD COUNT 9.4 T/MM3 (4.5-11.0)
[2017-01-09 05:57] LABS: ALBUMIN 2.9 G/DL (3.5-5.0); ALKALINE PHOSPHATASE 116 U/L (38-126); ALT (SGPT) 46 U/L (9-52); ANION GAP 11 MEQ/L (5-15); AST (SGOT) 54 U/L (14-36); BUN/CREATININE RATIO 30 RATIO (6-26); CALCIUM 8.1 MG/DL (8.4-10.2); CHLORIDE 98 MEQ/L (98-107); CO2 - CARBON DIOXIDE 31 MEQ/L (22-30); CREATININE 0.7 MG/DL (0.7-1.2); GLOMERULAR FILTRATION RATE 79; GLUCOSE 170 MG/DL (65-110); POTASSIUM 3.3 MEQ/L (3.6-5); SODIUM 140 MEQ/L (134-144); TOTAL PROTEIN 5.9 G/DL (6.3-8.2)
[2017-01-09] MEDS: NORMAL SALINE 1,000 ML IV SCH (07:16)
--- NOTE | 2017-01-09 07:52 | NUR ---
Status Patient's oxygen increased to 3l/nc, was on 0.5 l/nc and 02 sats were 84-88%. Patient diaphoretic. HR irregular, 90-120's. Patient denies CP and SOA.
[2017-01-09] MEDS: MAGNESIUM OXIDE 400 MG TABLET PO SCH (08:55)
[2017-01-09] MEDS: NIACIN 100 MG TABLET PO SCH ×3 (08:55→22:52)
[2017-01-09] MEDS: AMLODIPINE/BENAZEPRIL 5 MG/20 MG CAPSULE PO SCH (08:55)
[2017-01-09] MEDS: ASPIRIN *EC* 81mg TABLET PO SCH (08:55)
[2017-01-09] MEDS: CITALOPRAM 10mg TABLET PO SCH (08:55)
[2017-01-09] MEDS ORDERED: CEFTRIAXONE 1 G in NORMAL SALINE 100 ML IV SCH (09:00)
[2017-01-09] MEDS ORDERED: POTASSIUM CHLORIDE 20 MEQ TABLET PO ONE (11:15)
[2017-01-09] MEDS: INSULIN ASPART 100 UNIT/ML SQ PRN ×2 (11:33→22:53)
[2017-01-09] MEDS: FUROSEMIDE 20 MG/2 ML INJECTION IV SCH ×2 (11:36→17:02)
--- NOTE | 2017-01-09 11:39 | PNPDOC ---
JUAN MANUEL SONG [employer] INST[employer] PV 01/09/17 1123: Subjective Date DATE: 01/09/17 TIME: 11:20 Subjective Veronika is seen today in follow up. RN reports that heart rate has been elevated, appears to be atrial fib. Family and pt. report no prior history of atrial fib. Elevated rate concerning for RVR. RN reports O2 requirements have increased from 0.5L to 3L/NC. Pt is more SOA today. She is visiting with PT during my visit, but is pleasant and cooperative. She is dyspneic with conversation at rest. Chart is reviewed. Objective Vital Signs Vital signs Vital Signs Date Time Temp Pulse Resp B/P Pulse Ox O2 Delivery O2 Flow Rate FiO2 01/09/17 10:00 95 91 Nasal Cannula 3.00 01/09/17 07:38 98.5 18 135/76 Telemetry Rhythm: Atrial Fibrillation Height (Feet): 5 Height (Inches): 5.00 Weight (Kilograms): 57.600 General General Appearance: Alert, Orientated x 3, Cooperative, Mild Distress (SOA at rest) Eyes (Brief) Eyes: FOUND: EOMI, PERRL, NOT FOUND: scleral icterus ENMT (Brief) ENMT: FOUND: mucosa moist Neck (Brief) Neck: FOUND: JVD (Jugular venous pulsation), midline, NOT FOUND: nuchal rigidity, spasm Respiratory (Brief) Respiratory: FOUND: equal bilaterally (Shallow bilaterally; Coarse), symmetrical, wheezes Cardiovascular (Brief) Cardiac: FOUND: murmur (Aortic murmur), pedal edema, NOT FOUND: regular rate, regular rhythm Abdomen (Brief) Abdominal: FOUND: BS normo active x4, soft, NOT FOUND: distended, tender Extremities (Brief) Extremity : Side: Bilateral Extremity Finding: FOUND: edema Musculoskeletal (Brief) Comments Generalized weakness. Integumentary (Brief) Integumentary: FOUND: dry, warm Psychiatric (Brief) Psychiatric: FOUND: alert, attentive, oriented Laboratory Laboratory Laboratory Tests 01/08/17 11:53 01/09/17 05:00 Laboratory Tests 01/08/17 11:53 01/09/17 05:00 Radiology CTA: Other findings: Small right and trace left pleural effusions with minimal dependent atelectasis. Motion artifact. No pneumonia or pneumothorax seen. The central airways are patent. No gross pulmonary masses. No axillary lymphadenopathy. Thyroid goiter. Mildly prominent mediastinal nodes could be reactive or due to chronic granulomatous disease. Heart is severely enlarged without pericardial effusion. Mitral valvular and coronary artery calcifications. Chest xray Impression: 1. Increased interstitial markings could be due to mild pulmonary edema or atypical/viral pneumonia. 2. Severely enlarged cardiac silhouette could be due to cardiomegaly or pericardial effusion. Sepsis Diagnostic Criteria Sepsis Confirmed/Suspected Infection: No Assessment & Plan Problems: (1) CHF with unknown LVEF Status: Acute (2) Atrial fibrillation with RVR Status: Acute (3) Dehydration Status: Resolved Assessment & Plan: Present on admission (4) Leukocytosis Status: Acute Qualifiers: Leukocytosis type: unspecified Qualified Codes: D72.829 - Elevated white blood cell count, unspecified (5) Urinary tract infection Status: Resolved (6) Weakness Status: Acute (7) Chronic wound of extremity Status: Chronic Assessment & Plan: Left elbow (8) HTN (hypertension) Status: Chronic (9) Diabetes mellitus Status: Chronic (10) Fluid overload Status: Acute Qualifiers: Hypervolemia type: other Qualified Codes: E87.79 - Other fluid overload (11) Hypokalemia Status: Acute Assessment 01/09/17- Pt. appears to be in fluid overload with HF - new onset AFib with RVR. Significant cardiomegaly on imaging. Denies hx of AFib with RVR. Remains in AFib with RVR intermittently- repeat EKG. Add Tele. Consult cardiology-[facility]. I reviewed [facility] records- no documentation of HF or AFib. No echo or CV notes on file there. Give IV Lasix, Add low dose metoprolol to control rate. Ordered Echo. continue O2 for support. Change to inpatient due to need for further evaluation and tx. Concern for PNA, less likely UTI- may be more due to atelectasis. Continue empiric Ceftriaxone for now, but may be able to DC soon. Replace KCL now and continue BID during diuretics. Metformin on hold due to CTA. Add SSI for now- resume metformin tomorrow if stable. Continue PT for weakness. DVT Prophylaxis: SCD'S Code Status Do Not Resuscitate Hospital Course Summary Disclaimer The hospital course summary below is not to be considered part of the above Progress Note. Hospital Course Summary Admit to outpatient observation for dehydration and UTI under the care of Dr. Briseno. Start IV fluids, NaCl at 75ml/hr for gentle hydration Rocephin 1gm IV daily initiated while the emergency room for treatment of acute urinary tract infection. Due to her increased and recent weakness, we will consult PT/OT for evaluation and treatment. [facility] currently manages her elbow wound. We will notify them that she is here. She had her last drsg change yesterday. She gets this done twice weekly. Continue Lotrel for BP control. Vitals are stable, currently 98.1, HR 94, R 18, BP 128/66, 91% RA Holding Metformin due to contrast with Radiology today. Blood glucose testing AC and HS. Will order regular insulin sliding scale since her oral agent is on hold. 1800 calorie Diabetic diet SCDs for DVT prophylaxis. Will discuss further plan of care with attending, Dr. Haq. At time of discharge medical care will return to primary care provider Dr Aly 01/09/17- Pt. appears to be in fluid overload with HF - new onset AFib with RVR. Significant cardiomegaly on imaging. Denies hx of AFib with RVR. Remains in AFib with RVR intermittently- repeat EKG. Add Tele. Consult cardiology-[facility]. I reviewed [facility] records- no documentation of HF or AFib. No echo or CV notes on file there. Give IV Lasix, Add low dose metoprolol to control rate. Ordered Echo. continue O2 for support. Change to inpatient due to need for further evaluation and tx. Concern for PNA, less likely UTI- may be more due to atelectasis. Continue empiric Ceftriaxone for now, but may be able to DC soon. Replace KCL now and continue BID during diuretics. Metformin on hold due to CTA. Add SSI for now- resume metformin tomorrow if stable. Continue PT for weakness. WILLI GOMEZ MD 01/09/17 5234: Assessment & Plan Problems: (1) CHF with unknown LVEF Status: Acute (2) Atrial fibrillation with RVR Status: Acute (3) Dehydration Status: Resolved Assessment & Plan: Present on admission (4) Leukocytosis Status: Acute Qualifiers: Leukocytosis type: unspecified Qualified Codes: D72.829 - Elevated white blood cell count, unspecified (5) Urinary tract infection Status: Resolved Assessment & Plan: Ruled out; no white cells on catheter specimen (6) Weakness Status: Acute (7) Chronic wound of extremity Status: Chronic Assessment & Plan: Left elbow (8) HTN (hypertension) Status: Chronic (9) Diabetes mellitus Status: Chronic (10) Fluid overload Status: Acute Qualifiers: Hypervolemia type: other Qualified Codes: E87.79 - Other fluid overload (11) Hypokalemia Status: Acute Assessment I have independently evaluated and examined this patient. I reviewed the chart, the patient's history, and the SOLAR INST[employer]ER PV's documented findings as above. We discussed and formulated the assessment and plan as above with additions as below: Mrs. Gonzalez reports occasional cough but denied dyspnea today despite development of hypoxia. She reports that she did okay with physical therapy and notes indicate she was able to ambulate a short distance with assistance. She denies palpitations or chest pain but describes an abnormal sensation in her chest. Examination reveals an irregular heart rhythm with low-grade tachycardia. There are crackles at the bases and mild right ptosis. The patient is alert and fully oriented. EKG from admission and again today reveal atrial fibrillation with RVR, rates a little above 100 on both tracings. Patient denies any past history of heart disease other than being told she had a heart murmur prior to surgery last fall. At that time anesthesia records indicate regular cardiac rhythm but no EKG was obtained. Discussed with cardiology, Lovenox initiated and metoprolol for heart rate. Rocephin discontinued-no evidence of infiltrate on CTA of lungs and catheter UA with no white cells. Low suspicion of infection as weakness likely due to cardiac arrhythmia. New onset respiratory failure-diuresis initiated, IV fluids discontinued. Chest x-ray to be obtained tomorrow morning. Plan/Intensity of Service Past records reviewed, outpatient records reviewed, EKGs viewed by myself; discussed with cardiology and nursing. Laboratory data reviewed. DVT Prophylaxis: Lovenox JUAN MANUEL SONG APRN Jan 09, 2017 11:23 WILLI GOMEZ MD Jan 09, 2017 17:25
--- NOTE | 2017-01-09 11:56 | NUR ---
MARITZA GUNN SCORE IS 7. Addendum: 01/09/17 at 1157 by YANN GALINDO Amended: Links added.
--- NOTE | 2017-01-09 11:58 | NUR ---
CM THIS WORKER VISITED PT IN ROOM. INTRODUCED SELF AND ROLE OF CASE MANAGEMENT. PT STATED SHE HAS GOOD FAMILY SUPPORT, FAMILY WILL BE UP LATER TO VISIT. PT STATED SHE DOES NOT HAVE OXYGEN AT HOME. PT STATED HER D/C PLANS ARE TO RETURN HOME WITH [facility]. THIS PT WAS GIVEN THIS WORKER'S CONTACT INFORMATION AND ENCOURAGED TO CALL WITH ANY QUESTIONS/NEEDS. Addendum: 01/09/17 at 1201 by YANN GALINDO Amended: Links added.
--- NOTE | 2017-01-09 13:22 | NUR ---
HR update Tele continues in afib. Rate is more controlled. HR 80-104 at this time. Continues to deny pain
[2017-01-09] MEDS ORDERED: ENOXAPARIN 150 MG/ML INJECTION SQ SCH (15:15)
--- NOTE | 2017-01-09 15:32 | CONSPD ---
DILLAN FONSECA SPECIAL EDUCATION INSTRUCTOR 01/09/17 1512: Consultation Info Date DATE: 01/09/17 TIME: 15:07 Date of Consultation: Jan 09, 2017 Attending Physician: Davy Haq MD Reason for Consultation: SOA, Cardiomegaly HPI - Adult Date DATE: 01/09/17 TIME: 15:07 General Date of Admission Date of Admission: Jan 09, 2017 at 11:39 Chief Complaint: weakness History of Present Illness Veronika is a 86 year old female who lives independently at home with her cat. Yesterday morning she woke up and felt we could not get out of her chair. She called EMS for help. They brought her to the emergency room for further evaluation and treatment. Lab studies were obtained and essential normal except a urinalysis show 2+ protein, trace ketones, 3+ blood with 2+ bacteria. Chest x- ray and CT of the chest and abdomen were performed indicating no acute findings. Bilateral lower extremity venous Doppler was obtained showing no acute evidence of DVT. She was afebrile at 98.8, was tachycardic at 109. Room air saturations 92%. EKG showed Atrial fibrillation, RVR at 106. Given her weakness and findings of UTI Hospital services will contact accepted patient for outpatient admission for further evaluation and treatment. Dr Arriola is consulted today for new onset A Fib as patient reports no known history of A Fib. She is examined by me in her room on the Medical unit. Her HR is currently in the upper 90s. 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 Prov:CAITIE CARRIZALES APRN 01/13/17 Furosemide (Furosemide) 40 Mg Tablet, 1 TAB PO BID for 30 Days, #60 TAB Prov:CAITIE CARRIZALES APRN 01/13/17 Benazepril HCl (Benazepril HCl) 20 Mg Tablet, 20 MG PO DAILY for 30 Days, #30 TAB Prov:SOFIE,CAITIESVETLANA Subramanian APRN 01/13/17 Metoprolol Tartrate (Lopressor) 50 Mg Tablet, 75 MG PO BIDWM for 30 Days, #90 TAB Prov:SOFIECAITIE Marilynn SEGURA 01/13/17 Apixaban (Eliquis) 5 Mg Tablet, 2.5 MG PO BID for 30 Days, #30 TAB Prov:CAITIE CARRIZALES APRN 01/13/17 Reported Medications Aspirin (Aspir 81) 81 Mg Tablet.dr, 81 MG PO DAILY 07/15/16 Calcium Carbonate (Calcium) 600 Mg Tablet, 600 MG PO BID 07/15/16 Magnesium Oxide (Magnesium) 250 Mg Tablet, 250 MG PO DAILY, TAB 07/15/16 Psyllium Seed (with Sugar) (Metamucil Fiber Wafer) 1 Each Wafer, 2 TAB PO DAILY 07/15/16 Niacin (Niacin) 50 Mg Tablet, 50 MG PO TID 07/15/16 Ascorbic Acid (Vitamin C) 1,000 Mg Tablet, 1000 MG PO BID 07/15/16 Cholecalciferol (Vitamin D3) (Vitamin D) 1,000 Unit Capsule, 1000 UNIT PO DAILY 07/15/16 Vitamin E (Dl,Tocopheryl Acet) (Vitamin E) 1,000 Unit Capsule, 1000 UNIT PO Fr@ 0800 07/15/16 Citalopram Hydrobromide (Citalopram HBr) 10 Mg Tablet, 10 MG PO DAILY 07/15/16 Metformin HCl (Metformin HCl) 500 Mg Tablet, 500 MG PO DAILY 07/15/16 Discontinued Reported Medications Amlodipine Besylate/Benazepril (Amlodipine-Benazepril 5-20 mg) 1 Each Capsule, 1 CAP PO DAILY 07/15/16 Discontinued Scripts Hydrocodone/Apap ([place] 5-325 Tablet) 5-325 Tablet, 1 TAB PO HS and PRN for PAIN , #30 TAB 0 Refills Prov:ORLANDO HARDIN MD 07/18/16 Allergies: Coded Allergies: No Known Drug Allergies (Unverified Allergy, Unknown, 01/08/17) Family History FOUND: CAD, cancer (ovarian- mother) Vaccines 10/09/15 10-09-15 Social History Smoking Status: Never smoker Does patient use chewing tobac: No Second Hand Exposure: No Substance Use Type: does not use Alcohol Intake: none Marital Status: Single Housing: apartment Current Occupational Status: retired Advance Directives: No DPOA for Healthcare Only Review of Systems Constitutional: REPORTS: weakness, DENIES: chills, dizziness, fever Eyes Vision: DENIES: double vision ENMT Hearing: DENIES: tinnitus Balance: DENIES: vertigo Mouth/Throat: DENIES: sore throat Cardiovascular murmur, DENIES: chest pain, dyspnea on exertion, orthopnea Rhythm/Rate: tachycardia, DENIES: irregular beat, palpitations Vascular: pedal edema Pulmonary Respiratory: DENIES: cough, sputum GI Upper Abdomen: DENIES: nausea, vomiting Lower Abdomen: DENIES: diarrhea General: DENIES: dysuria Integumentary Skin: DENIES: rash Neurological General: weakness, DENIES: headache, numbness All Other Systems All Other Systems: Reviewed (remainder of 10-point ROS Neg.) Physical Exam General General Nourishment: well nourished, well developed, apparent age General Body Habitus: well groomed Vital Signs Vital Signs Date Time Temp Pulse Resp B/P Pulse Ox O2 Delivery O2 Flow Rate FiO2 01/09/17 13:33 87 Nasal Cannula 3.00 01/09/17 13:33 95 01/09/17 07:38 98.5 18 135/76 Height (Feet): 5 Height (Inches): 5.00 Telemetry Rhythm: Atrial Fibrillation ENMT Brief: FOUND: mucosa moist Neck Brief: NOT FOUND: JVD, carotid bruits Respiratory Brief: FOUND: clear all morrison, equal bilaterally (very diminished) Cardiovascular (brief) Cardiac Brief: FOUND: murmur (III/), pedal edema, NOT FOUND: gallop, regular rate, regular rhythm Abdomen (brief) Abdominal Brief: FOUND: BS normo active x4, soft Integumentary (brief) Integumentary Brief: FOUND: dry, pink, warm Neurologic RN Documented GCS Eye Opening: Verbal: Motor: Total: Psychiatric (brief) FOUND: alert, oriented Laboratory Laboratory Tests Test 01/08/17 11:53 01/08/17 12:16 01/08/17 17:30 01/08/17 20:59 White Blood Count 11.6T/MM3 Red Blood Count 4.16M/MM3 Hemoglobin 12.5GM/DL Hematocrit 38.1% Mean Corpuscular Volume 91.6UM3 Mean Corpuscular Hemoglobin 30.0UUG Mean Corpuscular Hemoglobin Concent 32.8GM/DL RDW Standard Deviation 51.4FL Platelet Count 141T/MM3 Mean Platelet Volume 10.1UM3 Immature Granulocyte % (Auto) % Neutrophils (%) (Auto) % Lymphocytes (%) (Auto) % Monocytes (%) (Auto) % Eosinophils (%) (Auto) % Basophils (%) (Auto) % Absolute Immature Granulocyte (auto T/MM3 Absolute Neutrophils (auto) T/MM3 Absolute Lymphocytes (auto) T/MM3 Absolute Monocytes (auto) T/MM3 Absolute Eosinophils (auto) T/MM3 Absolute Basophils (auto) T/MM3 Neutrophils % (Manual) 90.0% Band Neutrophils % 2.0% Lymphocytes % (Manual) 3.0% Monocytes % (Manual) 5.0% Absolute Neutrophils (Manual) 10.4T/MM3 Band Neutrophils # 0.2T/MM3 Lymphocytes # (Manual) 0.3T/MM3 Monocytes # (Manual) 0.6T/MM3 Red Cell Morphology Comment Normal Turbidity < 20 Sodium Level 135MEQ/L Potassium Level 3.7MEQ/L Chloride Level 94MEQ/L Carbon Dioxide Level 27MEQ/L Anion Gap 14MEQ/L Blood Urea Nitrogen 24.0MG/DL Creatinine 0.7MG/DL Glomerular Filtration Rate Calc 79 BUN/Creatinine Ratio 34RATIO Glucose Level 238MG/DL Calculated Osmolality 272MOSM/KG Calcium Level 8.6MG/DL Total Bilirubin 1.50MG/DL Icterus Index < 2 Aspartate Amino Transf (AST/SGOT) 56U/L Alanine Aminotransferase (ALT/SGPT) 50U/L Alkaline Phosphatase 137U/L Troponin I 0.037ng/ml Total Protein 6.9G/DL Albumin 3.5G/DL Globulin 3.4G/DL Albumin/Globulin Ratio 1.0RATIO Thyroid Stimulating Hormone (TSH) 1.27MIU/L Chemistry Specimen Hemolysis 19 Urine Collection Type Straight cath Urine Color Yellow Urine Turbidity Sl cloudy Urine pH 5.0 Urine Specific [place] 1.025 Urine Protein 2+ Urine Glucose (UA) Negative Urine Ketones Trace Urine Blood 3+ Urine Nitrite Negative Urine Bilirubin Negative Urine Urobilinogen 0.2EU/DL Urine Leukocyte Esterase Negative Urine RBC 1-3/HPF Urine WBC None seen/HPF Urine Squamous Epithelial Cells None seen Urine Transitional Epithelial Cells 0-1/HPF Urine Amorphous Urates Many Urine Bacteria 2+ Urine Fine Granular Casts 0-1/LPF Urine Coarse Granular Casts 0-1/LPF Urine Culture Indicated Cult not indicated Glucometer 175mg/dL 229mg/dL Test 01/08/17 23:24 01/09/17 05:00 01/09/17 06:17 01/09/17 11:08 Glucometer 198mg/dL 159mg/dL 274mg/dL White Blood Count 9.4T/MM3 Red Blood Count 4.19M/MM3 Hemoglobin 12.6GM/DL Hematocrit 38.8% Mean Corpuscular Volume 92.6UM3 Mean Corpuscular Hemoglobin 30.1UUG Mean Corpuscular Hemoglobin Concent 32.5GM/DL RDW Standard Deviation 52.4FL Platelet Count 142T/MM3 Mean Platelet Volume 10.6UM3 Immature Granulocyte % (Auto) 0.1% Neutrophils (%) (Auto) 77.1% Lymphocytes (%) (Auto) 11.3% Monocytes (%) (Auto) 10.9% Eosinophils (%) (Auto) 0.4% Basophils (%) (Auto) 0.2% Absolute Immature Granulocyte (auto 0.01T/MM3 Absolute Neutrophils (auto) 7.3T/MM3 Absolute Lymphocytes (auto) 1.1T/MM3 Absolute Monocytes (auto) 1.0T/MM3 Absolute Eosinophils (auto) 0.0T/MM3 Absolute Basophils (auto) 0.0T/MM3 Turbidity < 20 Sodium Level 140MEQ/L Potassium Level 3.3MEQ/L Chloride Level 98MEQ/L Carbon Dioxide Level 31MEQ/L Anion Gap 11MEQ/L Blood Urea Nitrogen 21.0MG/DL Creatinine 0.7MG/DL Glomerular Filtration Rate Calc 79 BUN/Creatinine Ratio 30RATIO Glucose Level 170MG/DL Calculated Osmolality 276MOSM/KG Calcium Level 8.1MG/DL Total Bilirubin 1.30MG/DL Icterus Index < 2 Aspartate Amino Transf (AST/SGOT) 54U/L Alanine Aminotransferase (ALT/SGPT) 46U/L Alkaline Phosphatase 116U/L Total Protein 5.9G/DL Albumin 2.9G/DL Globulin 3.0G/DL Albumin/Globulin Ratio 1.0RATIO Chemistry Specimen Hemolysis < 15 Laboratory Tests Test 01/08/17 11:53 01/08/17 12:16 01/08/17 17:30 01/08/17 20:59 White Blood Count 11.6T/MM3 Red Blood Count 4.16M/MM3 Hemoglobin 12.5GM/DL Hematocrit 38.1% Mean Corpuscular Volume 91.6UM3 Mean Corpuscular Hemoglobin 30.0UUG Mean Corpuscular Hemoglobin Concent 32.8GM/DL RDW Standard Deviation 51.4FL Platelet Count 141T/MM3 Mean Platelet Volume 10.1UM3 Immature Granulocyte % (Auto) % Neutrophils (%) (Auto) % Lymphocytes (%) (Auto) % Monocytes (%) (Auto) % Eosinophils (%) (Auto) % Basophils (%) (Auto) % Absolute Immature Granulocyte (auto T/MM3 Absolute Neutrophils (auto) T/MM3 Absolute Lymphocytes (auto) T/MM3 Absolute Monocytes (auto) T/MM3 Absolute Eosinophils (auto) T/MM3 Absolute Basophils (auto) T/MM3 Neutrophils % (Manual) 90.0% Band Neutrophils % 2.0% Lymphocytes % (Manual) 3.0% Monocytes % (Manual) 5.0% Absolute Neutrophils (Manual) 10.4T/MM3 Band Neutrophils # 0.2T/MM3 Lymphocytes # (Manual) 0.3T/MM3 Monocytes # (Manual) 0.6T/MM3 Red Cell Morphology Comment Normal Turbidity < 20 Sodium Level 135MEQ/L Potassium Level 3.7MEQ/L Chloride Level 94MEQ/L Carbon Dioxide Level 27MEQ/L Anion Gap 14MEQ/L Blood Urea Nitrogen 24.0MG/DL Creatinine 0.7MG/DL Glomerular Filtration Rate Calc 79 BUN/Creatinine Ratio 34RATIO Glucose Level 238MG/DL Calculated Osmolality 272MOSM/KG Calcium Level 8.6MG/DL Total Bilirubin 1.50MG/DL Icterus Index < 2 Aspartate Amino Transf (AST/SGOT) 56U/L Alanine Aminotransferase (ALT/SGPT) 50U/L Alkaline Phosphatase 137U/L Troponin I 0.037ng/ml Total Protein 6.9G/DL Albumin 3.5G/DL Globulin 3.4G/DL Albumin/Globulin Ratio 1.0RATIO Thyroid Stimulating Hormone (TSH) 1.27MIU/L Chemistry Specimen Hemolysis 19 Urine Collection Type Straight cath Urine Color Yellow Urine Turbidity Sl cloudy Urine pH 5.0 Urine Specific [place] 1.025 Urine Protein 2+ Urine Glucose (UA) Negative Urine Ketones Trace Urine Blood 3+ Urine Nitrite Negative Urine Bilirubin Negative Urine Urobilinogen 0.2EU/DL Urine Leukocyte Esterase Negative Urine RBC 1-3/HPF Urine WBC None seen/HPF Urine Squamous Epithelial Cells None seen Urine Transitional Epithelial Cells 0-1/HPF Urine Amorphous Urates Many Urine Bacteria 2+ Urine Fine Granular Casts 0-1/LPF Urine Coarse Granular Casts 0-1/LPF Urine Culture Indicated Cult not indicated Glucometer 175mg/dL 229mg/dL Test 01/08/17 23:24 01/09/17 05:00 01/09/17 06:17 01/09/17 11:08 Glucometer 198mg/dL 159mg/dL 274mg/dL White Blood Count 9.4T/MM3 Red Blood Count 4.19M/MM3 Hemoglobin 12.6GM/DL Hematocrit 38.8% Mean Corpuscular Volume 92.6UM3 Mean Corpuscular Hemoglobin 30.1UUG Mean Corpuscular Hemoglobin Concent 32.5GM/DL RDW Standard Deviation 52.4FL Platelet Count 142T/MM3 Mean Platelet Volume 10.6UM3 Immature Granulocyte % (Auto) 0.1% Neutrophils (%) (Auto) 77.1% Lymphocytes (%) (Auto) 11.3% Monocytes (%) (Auto) 10.9% Eosinophils (%) (Auto) 0.4% Basophils (%) (Auto) 0.2% Absolute Immature Granulocyte (auto 0.01T/MM3 Absolute Neutrophils (auto) 7.3T/MM3 Absolute Lymphocytes (auto) 1.1T/MM3 Absolute Monocytes (auto) 1.0T/MM3 Absolute Eosinophils (auto) 0.0T/MM3 Absolute Basophils (auto) 0.0T/MM3 Turbidity < 20 Sodium Level 140MEQ/L Potassium Level 3.3MEQ/L Chloride Level 98MEQ/L Carbon Dioxide Level 31MEQ/L Anion Gap 11MEQ/L Blood Urea Nitrogen 21.0MG/DL Creatinine 0.7MG/DL Glomerular Filtration Rate Calc 79 BUN/Creatinine Ratio 30RATIO Glucose Level 170MG/DL Calculated Osmolality 276MOSM/KG Calcium Level 8.1MG/DL Total Bilirubin 1.30MG/DL Icterus Index < 2 Aspartate Amino Transf (AST/SGOT) 54U/L Alanine Aminotransferase (ALT/SGPT) 46U/L Alkaline Phosphatase 116U/L Total Protein 5.9G/DL Albumin 2.9G/DL Globulin 3.0G/DL Albumin/Globulin Ratio 1.0RATIO Chemistry Specimen Hemolysis < 15 Radiology DATE OF EXAM: 01/08/17 ORDERING DOCTOR: BRETT PHELPS DO TYPE OF EXAM: CHEST 1 VIEW REASON FOR EXAM: generalized weakness Indication: ITS.REASON: generalized weakness PROCEDURE: CHEST 1 VIEW: Encounter: Initial Comparison: None Findings: Increased interstitial prominence. Possible trace effusions. Upper lung morrison are clear. No pneumothorax or focal lobar consolidation. Cardiac silhouette is severely enlarged. Mediastinal contours are grossly normal. Impression: 1. Increased interstitial markings could be due to mild pulmonary edema or atypical/viral pneumonia. 2. Severely enlarged cardiac silhouette could be due to cardiomegaly or pericardial effusion. DATE OF EXAM: 01/08/17 ORDERING DOCTOR: BRETT PHELPS DO TYPE OF EXAM: CTA PE/CTA AORTA REASON FOR EXAM: abnl. CXR Indication: ITS.REASON: abnl. CXR PROCEDURE: CTA PE/CTA AORTA: Encounter: Initial Comparison: Chest x-ray from today Technique: Axial CT angiographic imaging of the chest, abdomen and pelvis was performed before and after the administration of intravenous contrast. Coronal and sagittal MIP reconstructed images were created and reviewed. Three-dimensional surface shaded volume rendered imaging of the aorta and arterial vasculature was created by the technologist on a dedicated workstation under the direction of the interpreting radiologist and reviewed. CT angiography for pulmonary embolus was also performed in the pulmonary angiographic phase. Coronal and sagittal MIP reconstructed images were created and reviewed. Automated Exposure Control and Iterative Reconstruction dose reducing techniques were utilized. Contrast: 82 mL Omnipaque 350 Findings: CT angiogram of the chest for pulmonary embolus Pulmonary arteries: Contrast bolus is diagnostic to the segmental pulmonary arterial level. No filling defects identified to suggest a pulmonary embolus. Other findings: Small right and trace left pleural effusions with minimal dependent atelectasis. Motion artifact. No pneumonia or pneumothorax seen. The central airways are patent. No gross pulmonary masses. No axillary lymphadenopathy. Thyroid goiter. Mildly prominent mediastinal nodes could be reactive or due to chronic granulomatous disease. Heart is severely enlarged without pericardial effusion. Mitral valvular and coronary artery calcifications. Impression: No pulmonary embolus. Small nonspecific right pleural effusion. No focal pneumonia. CT angiogram of the chest for aorta with and without contrast: Findings: Noncontrast images show no evidence of intramural hematoma. Postcontrast images show no evidence of aortic aneurysm or dissection. There is ectasia of the ascending aorta at 4.3 cm diameter. Descending thoracic aorta is normal in caliber. For other findings please see the CT angiogram of the chest for PE report above. Impression: No evidence of acute aortic syndrome acute abnormality in the chest. Severe cardiomegaly. Ascending aortic ectasia. CT angiogram of the abdomen and pelvis with and without contrast: No evidence of aortic aneurysm or dissection. There is scattered atherosclerotic plaque in the arterial vasculature which is compatible with the patient's advanced age. The arterial phase liver, gallbladder, kidneys, spleen and pancreas show no gross abnormality. Motion artifact. No evidence of a bowel obstruction. The celiac and SMA are patent. Mild stenosis at the left renal artery origin. Mild right renal artery stenosis as well. Bone windows show no acute findings. 3-D imaging shows no new information. Impression: No evidence of acute aortic syndrome. No aneurysm or dissection Impression/Recommendation Problems: (1) Atrial fibrillation with RVR Status: Resolved Assessment & Plan: New onset atrial fibrillation. Rate controlled except with activity. Start Lovenox 1mg/kg SQ BID and follow HGB. Start Metoprolol 25mg PO BID. TSH WNL, Obtain Mag and BNP. Echo ordered by attending to be read by Dr. Arriola (2) Weakness Status: Acute (3) HTN (hypertension) Status: Chronic (4) Cardiomegaly Status: Chronic Assessment & Plan: Unknown cause. Obtain echo for EF, and rule out effusion (5) Diabetes mellitus Status: Chronic Recommendation New onset A Fib: Rate controlled except with activity. Start Lovenox 1mg/kg SQ BID and follow HGB. Start Metoprolol 25mg PO BID. TSH WNL, Obtain Mag and BNP. Echo ordered by attending to be read by Dr. Arriola. Cardiomegaly: Unknown cause. Obtain echo for EF, and rule out effusion. I examined the patient and discussed with Dr. Arriola, together we agree on the plan of care. Thank you for allowing us to participate in this patients care, we will follow along with you LANEY ARRIOLA MD 01/15/17 0132: Past Medical History Current Medications Home Meds Active Scripts Potassium Chloride (Potassium Chloride) 20 Meq Tablet.er, 40 MEQ PO BIDWM for 30 Days, #120 TAB Take 1 tablet, by mouth, two times a day with meals. Prov:CAITIE CARRIZALES APRN 01/13/17 Furosemide (Furosemide) 40 Mg Tablet, 1 TAB PO BID for 30 Days, #60 TAB Prov:CAITIE CARRIZALES APRN 01/13/17 Benazepril HCl (Benazepril HCl) 20 Mg Tablet, 20 MG PO DAILY for 30 Days, #30 TAB Prov:CAITIE CARRIZALES APRN 01/13/17 Metoprolol Tartrate (Lopressor) 50 Mg Tablet, 75 MG PO BIDWM for 30 Days, #90 TAB Prov:CAITIE CARRIZALES APRN 01/13/17 Apixaban (Eliquis) 5 Mg Tablet, 2.5 MG PO BID for 30 Days, #30 TAB Prov:CAITIE CARRIZALES APRN 01/13/17 Reported Medications Aspirin (Aspir 81) 81 Mg Tablet.dr, 81 MG PO DAILY 07/15/16 Calcium Carbonate (Calcium) 600 Mg Tablet, 600 MG PO BID 07/15/16 Magnesium Oxide (Magnesium) 250 Mg Tablet, 250 MG PO DAILY, TAB 07/15/16 Psyllium Seed (with Sugar) (Metamucil Fiber Wafer) 1 Each Wafer, 2 TAB PO DAILY 07/15/16 Niacin (Niacin) 50 Mg Tablet, 50 MG PO TID 07/15/16 Ascorbic Acid (Vitamin C) 1,000 Mg Tablet, 1000 MG PO BID 07/15/16 Cholecalciferol (Vitamin D3) (Vitamin D) 1,000 Unit Capsule, 1000 UNIT PO DAILY 07/15/16 Vitamin E (Dl,Tocopheryl Acet) (Vitamin E) 1,000 Unit Capsule, 1000 UNIT PO Fr@ 0800 07/15/16 Citalopram Hydrobromide (Citalopram HBr) 10 Mg Tablet, 10 MG PO DAILY 07/15/16 Metformin HCl (Metformin HCl) 500 Mg Tablet, 500 MG PO DAILY 07/15/16 Discontinued Reported Medications Amlodipine Besylate/Benazepril (Amlodipine-Benazepril 5-20 mg) 1 Each Capsule, 1 CAP PO DAILY 07/15/16 Discontinued Scripts Hydrocodone/Apap ([place] 5-325 Tablet) 5-325 Tablet, 1 TAB PO HS and PRN for PAIN , #30 TAB 0 Refills Prov:ORLANDO HARDIN MD 07/18/16 Allergies: Coded Allergies: No Known Drug Allergies (Unverified Allergy, Unknown, 01/08/17) Impression/Recommendation Recommendation After examining the patient I agree with the above assessment. I am involved in the formulation of the patient's plan of care. DILLAN FONSECA APRN Jan 09, 2017 15:12 LANEY ARRIOLA MD Jan 15, 2017 13:29
[2017-01-09] MEDS: ENOXAPARIN 60 MG/0.6 ML INJECTION SQ SCH ×2 (16:31→22:53)
[2017-01-09] MEDS: POTASSIUM CHLORIDE 20 MEQ TABLET PO SCH (17:35)
--- NOTE | 2017-01-09 18:10 | NUR ---
Status Patient alert and oriented. Continues on 4l/nc. Tele afib. Ambulated in the [place] with stand by assist. Explained to patient and her son the new medications for treating Afib that she has been started on.
[2017-01-09] MEDS: HYDROCODONE/APAP 5 mg/325 mg TABLET PO SCH (22:53)
[2017-01-10] VITALS (9 sets, daily range): BP systolic 109–146; BP diastolic 62–74; PULSE 82–135; RESP 24–32; TEMP 97.8–99.2; O2SAT 91–95
[2017-01-10 05:46] LABS: BASOPHILS % (AUTO) 0.3 % (0-2); EOSINOPHILS # (AUTO) 0.1 T/MM3 (0-0.5); EOSINOPHILS % (AUTO) 1.4 % (0-4); HCT - HEMATOCRIT 38.9 % (36-46); HGB - HEMOGLOBIN 12.4 GM/DL (12-16); IMMATURE GRANULOCYTE # (AUTO) 0.03 T/MM3 (0.00-0.03); IMMATURE GRANULOCYTE % (AUTO) 0.4 % (0.0-0.5); LYMPHOCYTES # (AUTO) 1.2 T/MM3 (1-4.8); MEAN CORPUSCULAR HGB 29.6 UUG (26-34); MEAN CORPUSCULAR HGB CONC(MCHC 31.9 GM/DL (31-37); MEAN CORPUSCULAR VOLUME 92.8 UM3 (80-100); MEAN PLATELET VOLUME 10.9 UM3 (9.4-12.4); MONOCYTES # (AUTO) 0.8 T/MM3 (0-0.8); MONOCYTES % (AUTO) 10.7 % (0-9.0); NEUTROPHILS #(AUTO)-ABSOLUTE 5.7 T/MM3 (1.8-7.7); NEUTROPHILS % (AUTO) 72.2 % (33-66); RED BLOOD COUNT 4.19 M/MM3 (4.00-5.20); WBC - WHITE BLOOD COUNT 7.9 T/MM3 (4.5-11.0)
[2017-01-10 05:55] LABS: ANION GAP 9 MEQ/L (5-15); BUN/CREATININE RATIO 29 RATIO (6-26); CALCIUM 7.8 MG/DL (8.4-10.2); CHLORIDE 98 MEQ/L (98-107); CO2 - CARBON DIOXIDE 31 MEQ/L (22-30); CREATININE 0.7 MG/DL (0.7-1.2); GLOMERULAR FILTRATION RATE 79; GLUCOSE 103 MG/DL (65-110); SODIUM 138 MEQ/L (134-144)
--- NOTE | 2017-01-10 06:45 | NUR ---
STATUS ON 3.5 L O2 DURING NIGHT. SOA WITH AMBULATION. WEAK TO STAND FROM BED, BUT WHEN WALKING WAS FAIRLY STEADY. DENIED PAIN. RATE CONTROLLED AFIB DURING NIGHT. GAVE SS INSULIN CHARTED IN EVENING. BED ALARM ON. WILL CONTINUE TO MONITOR
[2017-01-10] MEDS: AMLODIPINE/BENAZEPRIL 5 MG/20 MG CAPSULE PO SCH (07:56)
[2017-01-10] MEDS: MAGNESIUM OXIDE 400 MG TABLET PO SCH (09:17)
[2017-01-10] MEDS: POTASSIUM CHLORIDE 20 MEQ TABLET PO SCH ×2 (09:17→18:29)
[2017-01-10] MEDS: CITALOPRAM 10mg TABLET PO SCH (09:17)
[2017-01-10] MEDS: ASPIRIN *EC* 81mg TABLET PO SCH (09:17)
[2017-01-10] MEDS: FUROSEMIDE 20 MG/2 ML INJECTION IV SCH ×2 (09:18→16:28)
[2017-01-10] MEDS: NIACIN 100 MG TABLET PO SCH ×3 (09:18→21:42)
[2017-01-10] MEDS: ENOXAPARIN 60 MG/0.6 ML INJECTION SQ SCH (09:18)
--- NOTE | 2017-01-10 10:45 | NUR ---
Status 0800-Pt alert and oriented. Pt goes for chest x-ray first thing this morning. With activity heart rate up in the 130's. Scheduled heart medications given when pt back from x-ray. Pt sits in chair for breakfast. Pt denies chest pain or shortness of air. 0900-Heart rate slowing down-more in the 100-one teens range. Will monitor. 1030-Pt ambulates in halls with use of cane and gait belt and assist x1. Pt unsteady on feet at times. Dr. hSelby in to see pt. Pt rests quietly in bed. Will monitor.
--- NOTE | 2017-01-10 11:00 | NUR ---
OXYGENATION ATTEMPT WAS GOING TO BE MADE TO WEAN O2, HOWEVER AFTER PT AMBULATED IN HALLS WITH O2 AT 4-5L PER NC, WHEN PT BACK RESTING IN ROOM O2 SATS WERE 88% WITH O2 AT 4L. WILL CONTINUE TO MONITOR.
[2017-01-10] MEDS: INSULIN ASPART 100 UNIT/ML SQ PRN ×2 (11:34→21:06)
--- NOTE | 2017-01-10 14:40 | PNPDOC ---
CAITIE CARRIZALES V HAND STRIPPER 01/10/17 1433: Subjective Date DATE: 01/10/17 TIME: 14:29 Subjective Veronika is seen today after lunch. She states that she feels low on "pep" today. Verbalizes feeling fatigued, however denies having specific complaints of pain. Denies having palpitations, chest pain, shortness of breath or abdominal pain. She was reported to be tachycardic this morning at 135, however, is currently down to 100 following oral beta marian. Appetite is good, no difficulty with urination. Objective Vital Signs Vital signs Vital Signs Date Time Temp Pulse Resp B/P Pulse Ox O2 Delivery O2 Flow Rate FiO2 01/10/17 08:00 135 01/10/17 07:53 98.2 32 146/73 91 Nasal Cannula 3.50 Telemetry Rhythm: Atrial Fibrillation Height (Feet): 5 Height (Inches): 5.00 Weight (Kilograms): 58.300 General General Appearance: Alert, Orientated x 3, Cooperative, No Acute Distress Eyes (Brief) Eyes: FOUND: EOMI ENMT (Brief) ENMT: FOUND: mucosa moist, normal dentition, NOT FOUND: pharnyx erythema Neck (Brief) Neck: FOUND: midline, NOT FOUND: adenopathy, carotid bruits, tracheal deviation Respiratory (Brief) Respiratory: FOUND: clear all morrison, equal bilaterally, NOT FOUND: wheezes Cardiovascular (Brief) Cardiac: NOT FOUND: murmur, pedal edema, regular rate (A-fib, Irregular), regular rhythm Capillary Refill: <2 sec Abdomen (Brief) Abdominal: FOUND: BS normo active x4, soft, NOT FOUND: distended, tender Lymphatic (Brief) Lymphatic: NOT FOUND: adenopathy Musculoskeletal (Brief) Musculoskeletal: NOT FOUND: tenderness Integumentary (Brief) Integumentary: FOUND: dry, pink, warm Neurologic (Brief) Neurological: FOUND: cranial 2-12 intact Psychiatric (Brief) Psychiatric: FOUND: alert, attentive, normal affect, oriented Laboratory Laboratory Laboratory Tests 01/09/17 05:00 01/10/17 05:21 Laboratory Tests 01/09/17 05:00 01/10/17 05:21 Sepsis Diagnostic Criteria Sepsis Confirmed/Suspected Infection: No Assessment & Plan Problems: (1) CHF with unknown LVEF Status: Acute (2) Atrial fibrillation with RVR Status: Acute (3) Dehydration Status: Resolved Assessment & Plan: Present on admission (4) Leukocytosis Status: Acute Qualifiers: Leukocytosis type: unspecified Qualified Codes: D72.829 - Elevated white blood cell count, unspecified (5) Urinary tract infection Status: Resolved Assessment & Plan: Ruled out; no white cells on catheter specimen (6) Weakness Status: Acute (7) Chronic wound of extremity Status: Chronic Assessment & Plan: Left elbow (8) HTN (hypertension) Status: Chronic Qualifiers: Hypertension type: essential hypertension Qualified Codes: I10 - Essential (primary) hypertension (9) Diabetes mellitus Status: Chronic (10) Fluid overload Status: Acute Qualifiers: Hypervolemia type: other Qualified Codes: E87.79 - Other fluid overload (11) Hypokalemia Status: Acute Plan/Intensity of Service 01/10/17 Noted increased rate this morning up to the 135. Metoprolol increased to 50 milligrams by mouth twice a day. Rate currently 100. Continue with Eliquis was 2.5 milligrams twice a day for chronic anticoagulation given A-fib Lasix 20 IV BID for diuresis, likely new onset CHF Continue to monitor blood sugars, fasting sugar this morning was 103. Sliding scale insulin. Continues on 3.5 Liters of oxygen to maintain saturations Repeat Chest Xray today. Will repeat CBC and BMP tomorrow to follow blood counts renal function and electrolytes Discuss further plan with attending- Dr Corrigan Code Status Do Not Resuscitate Hospital Course Summary Disclaimer The hospital course summary below is not to be considered part of the above Progress Note. Hospital Course Summary Admit to outpatient observation for dehydration and UTI under the care of Dr. Briseno. Start IV fluids, NaCl at 75ml/hr for gentle hydration Rocephin 1gm IV daily initiated while the emergency room for treatment of acute urinary tract infection. Due to her increased and recent weakness, we will consult PT/OT for evaluation and treatment. [facility] manages her elbow wound. We will notify them that she is here. She had her last drsg change yesterday. She gets this done twice weekly. Continue Lotrel for BP control. Vitals are stable, currently 98.1, HR 94, R 18, BP 128/66, 91% RA Holding Metformin due to contrast with Radiology today. Blood glucose testing AC and HS. Will order regular insulin sliding scale since her oral agent is on hold. 1800 calorie Diabetic diet SCDs for DVT prophylaxis. Will discuss further plan of care with attending, Dr. Haq. At time of discharge medical care will return to primary care provider Dr Aly 01/09/17- Pt. appears to be in fluid overload with HF - new onset AFib with RVR. Significant cardiomegaly on imaging. Denies hx of AFib with RVR. Remains in AFib with RVR intermittently- repeat EKG. Add Tele. Consult cardiology-[facility]. I reviewed [facility] records- no documentation of HF or AFib. No echo or CV notes on file there. Give IV Lasix, Add low dose metoprolol to control rate. Ordered Echo. continue O2 for support. Change to inpatient due to need for further evaluation and tx. Concern for PNA, less likely UTI- may be more due to atelectasis. Continue empiric Ceftriaxone for now, but may be able to DC soon. Replace KCL now and continue BID during diuretics. Metformin on hold due to CTA. Add SSI for now- resume metformin tomorrow if stable. Continue PT for weakness. 01/10/17 Noted increased rate this morning up to the 135. Metoprolol increased to 50 milligrams by mouth twice a day. Rate currently 100. Continue with Eliquis was 2.5 milligrams twice a day for chronic anticoagulation given A-fib Lasix 20 IV BID for diuresis, likely new onset CHF Continue to monitor blood sugars, fasting sugar this morning was 103. Sliding scale insulin. Continues on 3.5 Liters of oxygen to maintain saturations Repeat Chest Xray today. Will repeat CBC and BMP tomorrow to follow blood counts renal function and electrolytes Discuss further plan with attending- WILLI Underwood MD 01/10/17 3661: Assessment & Plan Assessment I have independently evaluated and examined this patient. I reviewed the chart, the patient's history, and the HAND STRIPPER's documented findings as above. We discussed and formulated the assessment and plan as above with additions as below: Mrs. Gonzalez reports that she has a vague sensation in her chest that she was told her heart was racing this morning but she can't identify when it does so. She denies dyspnea and reports that she was able to walk again today and that she no longer feels weak. Respirations are nonlabored but there are persistent crackles at the bases left greater than right. Cardiac rhythm remains irregular. Chest x-ray reviewed by myself demonstrating cardiomegaly and small bilateral pleural effusions. Continue diuresis in conjunction with rate control. Echocardiogram pending. Medication changes made earlier today by cardiology noted. Resume metformin for diabetes. Plan/Intensity of Service Chest x-ray reviewed by myself, laboratory data reviewed, telemetry reviewed. CAITIE CARRIZALES APRN Jan 10, 2017 14:33 WILLI CORRIGAN MD Jan 10, 2017 21:51
--- NOTE | 2017-01-10 14:48 | PNPDOC ---
DILLAN FONSECA TAX COMMISSIONER 01/10/17 1147: Subjective Date DATE: 01/10/17 TIME: 11:44 Subjective Veronika is in her room on [facility] with many family at the bedside. She denies cardiac complaints. Objective Vital Signs Vital signs Vital Signs 01/10/17 01/10/17 01/10/17 00:41 07:53 08:00 Temp 99.2 98.2 Pulse 106 135 135 Resp 24 32 B/P 114/74 146/73 Pulse Ox 93 91 O2 Delivery Nasal Cannula Nasal Cannula O2 Flow Rate 3.50 3.50 Telemetry Rhythm: Atrial Fibrillation Height (Feet): 5 Height (Inches): 5.00 Weight (Kilograms): 58.300 General Alert, Orientated x 3 ENMT (Brief) mucosa moist Neck (Brief) NOT FOUND: JVD, carotid bruits Respiratory (Brief) clear all morrison, equal bilaterally (very diminished) Cardiovascular (Brief) murmur (3/6), pedal edema, NOT FOUND: click, gallop, regular rate, regular rhythm, rub Abdomen (Brief) BS normo active x4, soft Integumentary (Brief) dry, pink, warm Psychiatric (Brief) alert Laboratory Laboratory Laboratory Tests Test 01/08/17 17:30 01/08/17 20:59 01/08/17 23:24 01/09/17 05:00 Glucometer 175mg/dL 229mg/dL 198mg/dL White Blood Count 9.4T/MM3 Red Blood Count 4.19M/MM3 Hemoglobin 12.6GM/DL Hematocrit 38.8% Mean Corpuscular Volume 92.6UM3 Mean Corpuscular Hemoglobin 30.1UUG Mean Corpuscular Hemoglobin Concent 32.5GM/DL RDW Standard Deviation 52.4FL Platelet Count 142T/MM3 Mean Platelet Volume 10.6UM3 Immature Granulocyte % (Auto) 0.1% Neutrophils (%) (Auto) 77.1% Lymphocytes (%) (Auto) 11.3% Monocytes (%) (Auto) 10.9% Eosinophils (%) (Auto) 0.4% Basophils (%) (Auto) 0.2% Absolute Immature Granulocyte (auto 0.01T/MM3 Absolute Neutrophils (auto) 7.3T/MM3 Absolute Lymphocytes (auto) 1.1T/MM3 Absolute Monocytes (auto) 1.0T/MM3 Absolute Eosinophils (auto) 0.0T/MM3 Absolute Basophils (auto) 0.0T/MM3 Turbidity < 20 Sodium Level 140MEQ/L Potassium Level 3.3MEQ/L Chloride Level 98MEQ/L Carbon Dioxide Level 31MEQ/L Anion Gap 11MEQ/L Blood Urea Nitrogen 21.0MG/DL Creatinine 0.7MG/DL Glomerular Filtration Rate Calc 79 BUN/Creatinine Ratio 30RATIO Glucose Level 170MG/DL Calculated Osmolality 276MOSM/KG Calcium Level 8.1MG/DL Magnesium Level 2.0MG/DL Total Bilirubin 1.30MG/DL Icterus Index < 2 Aspartate Amino Transf (AST/SGOT) 54U/L Alanine Aminotransferase (ALT/SGPT) 46U/L Alkaline Phosphatase 116U/L VR-Myi-U-Type Natriuretic Peptide 9900PG/ML Total Protein 5.9G/DL Albumin 2.9G/DL Globulin 3.0G/DL Albumin/Globulin Ratio 1.0RATIO Chemistry Specimen Hemolysis < 15 Test 01/09/17 06:17 01/09/17 11:08 01/09/17 17:00 01/09/17 21:23 Glucometer 159mg/dL 274mg/dL 131mg/dL 225mg/dL Test 01/10/17 05:21 01/10/17 06:17 White Blood Count 7.9T/MM3 Red Blood Count 4.19M/MM3 Hemoglobin 12.4GM/DL Hematocrit 38.9% Mean Corpuscular Volume 92.8UM3 Mean Corpuscular Hemoglobin 29.6UUG Mean Corpuscular Hemoglobin Concent 31.9GM/DL RDW Standard Deviation 51.3FL Platelet Count 156T/MM3 Mean Platelet Volume 10.9UM3 Immature Granulocyte % (Auto) 0.4% Neutrophils (%) (Auto) 72.2% Lymphocytes (%) (Auto) 15.0% Monocytes (%) (Auto) 10.7% Eosinophils (%) (Auto) 1.4% Basophils (%) (Auto) 0.3% Absolute Immature Granulocyte (auto 0.03T/MM3 Absolute Neutrophils (auto) 5.7T/MM3 Absolute Lymphocytes (auto) 1.2T/MM3 Absolute Monocytes (auto) 0.8T/MM3 Absolute Eosinophils (auto) 0.1T/MM3 Absolute Basophils (auto) 0.0T/MM3 Turbidity < 20 Sodium Level 138MEQ/L Potassium Level 4.0MEQ/L Chloride Level 98MEQ/L Carbon Dioxide Level 31MEQ/L Anion Gap 9MEQ/L Blood Urea Nitrogen 20.0MG/DL Creatinine 0.7MG/DL Glomerular Filtration Rate Calc 79 BUN/Creatinine Ratio 29RATIO Glucose Level 103MG/DL Calculated Osmolality 269MOSM/KG Calcium Level 7.8MG/DL Icterus Index < 2 Chemistry Specimen Hemolysis < 15 Glucometer 112mg/dL Laboratory Tests 01/10/17 05:21 Laboratory Tests 01/10/17 05:21 Medications Current Medications Iohexol 1 bottle 1 bottle STK-MED ONCE .ROUTE ; Start 01/08/17 at 13:12; Stop at 13:13; Status DC Sodium Chloride (NS) 100 ml @ As Directed STK-MED ONCE .ROUTE ; Start 01/08/17 at 13:12; Stop 01/08/17 at 13:13; Status DC Sodium Chloride 10 ml 10 ml STK-MED ONCE .ROUTE ; Start 01/08/17 at 13:12; Stop 01/08/17 at 13:13; Status DC Ceftriaxone Sodium 1 g/Sodium Chloride 100 ml @ 100 mls/hr O ONCE IV Last administered on 01/08/17 15:08; Start 01/08/17 at 15:00; Stop 01/08/17 at 15:59 ; Status DC Sodium Chloride 1,000 ml @ 75 mls/hr [id number] IV Last administered on 07:16; Start 01/08/17 at 16:00; Stop 01/09/17 at 11:19; Status DC Ceftriaxone Sodium/Sodium Chloride (Rocephin/NS) 100 ml @ 200 mls/hr DAILY IV Last administered on 01/09/17 08:56; Start 01/09/17 at 09:00; Stop 01/09/17 at 17:26; Status DC Ondansetron HCl (Zofran) 4 mg Q6H PRN IV NAUSEA; Start 01/08/17 at 16:00 Amlodipine/ Benazepril HCl (Lotrel 5/20) 1 cap DAILY PO Last administered on 07:56; Start 01/09/17 at 09:00; Stop 01/10/17 at 11:45; Status DC Aspirin (Ecotrin) 81 mg DAILY PO Last administered on 01/10/17 09:17; Start at 09:00 Citalopram Hydrobromide (Celexa) 10 mg DAILY PO Last administered on 01/10/17 09:17; Start 01/09/17 at 09:00 Magnesium Oxide (Magox) 200 mg DAILY PO Last administered on 01/10/17 09:17; Start 01/09/17 at 09:00 Niacin (Vit. B-3) 50 mg TID PO Last administered on 01/10/17 09:18; Start at 21:00 Acetaminophen/ Hydrocodone Bitart ([place] 5/325) 1 tab Q4H PRN PO PAIN; Start at 16:00 Miscellaneous Medication (May use PRN orders) PRN PRN MC ; Start 01/08/17 at 16:00 Magnesium Hydroxide (Mom) 30 ml DAILY PRN PO CONSTIPATION; Start 01/08/17 at 16 :00 Bisacodyl (Dulcolax) 10 mg DAILY PRN RECTALLY CONSTIPATION; Start 01/08/17 at 16:00 Al Hydroxide/Mg Hydroxide (Maalox) 30 ml Q3H PRN PO INDIGESTION; Start at 16:00 Acetaminophen (Tylenol Regular Strength) 1-2 TABS PO Q5H PRN PO DISCOMFORT; Start 01/08/17 at 16:00 Nitroglycerin (Nitrostat) 0.4 mg Q5M PRN SL CHEST PAIN; Start 01/08/17 at 16:00 Potassium Chloride (Kdur) 40 meq BIDWM PO Last administered on 01/10/17 09:17 ; Start 01/09/17 at 17:30 Furosemide (Lasix) 20 mg BID. IV Last administered on 01/10/17 09:18; Start at 11:15 Insulin Aspart (Novolog) SS PRN SQ Last administered on 01/10/17 11:34; Start 01/09/17 at 11:15 Enoxaparin Sodium (Lovenox) 60 mg BID SQ Last administered on 01/10/17 09:18; Start 01/09/17 at 16:15; Stop 01/10/17 at 11:45; Status DC Metoprolol Tartrate (Lopressor) 50 mg BIDWM PO ; Start 01/10/17 at 17:30 Benazepril HCl (LOTENSIN 20 mg) 20 mg DAILY PO ; Start 01/11/17 at 09:00 Apixaban (Eliquis) 2.5 mg BID PO ; Start 01/10/17 at 21:00 Sepsis Diagnostic Criteria Sepsis Confirmed/Suspected Infection: No Assessment & Plan Problems: (1) Atrial fibrillation with RVR Status: Resolved Assessment & Plan: New onset atrial fibrillation. Rate controlled except with activity. Change Lovenox to Eliquis 2.5mg BID for anticoagulation. Increase Metoprolol to 50mg PO BID. (2) Weakness Status: Acute (3) HTN (hypertension) Status: Chronic Qualifiers: Hypertension type: essential hypertension Qualified Codes: I10 - Essential (primary) hypertension Assessment & Plan: D/C Amlodipine, Continue Benazepril 20mg daily (4) Cardiomegaly Status: Chronic Assessment & Plan: Unknown cause. Obtain echo for EF, and rule out effusion (5) Diabetes mellitus Status: Chronic Qualifiers: Diabetes mellitus type: type 2 Plan/Intensity of Service 01/09/17 New onset A Fib: Rate controlled except with activity. Start Lovenox 1mg/kg SQ BID and follow HGB. Start Metoprolol 25mg PO BID. TSH WNL, Obtain Mag and BNP. Echo ordered by attending to be read by Dr. Shelby. Cardiomegaly: Unknown cause. Obtain echo for EF, and rule out effusion. I examined the patient and discussed with Dr. Shelby, together we agree on the plan of care. 01/10/17 Change Lovenox to Eliquis 2.5mg BID for anticoagulation. Increase Metoprolol to 50mg PO BID. D/C Amlodipine, Continue Benazepril 20mg daily. Thank you for allowing us to participate in this patients care, we will follow along with you LANEY SHELBY MD 01/15/17 1331: Assessment & Plan Plan/Intensity of Service After examining the patient I agree with the above assessment. I am involved in the formulation of the patient's plan of care. DILLAN FONSECA APRN Jan 10, 2017 11:47 LANEY SHELBY MD Jan 15, 2017 13:31
--- NOTE | 2017-01-10 18:37 | NUR ---
Status Pt sits in chair for meals. Has a lot of visitors this afternoon. Vitals continue stable as charted. Telemetry continues A-fib with rates 90's to one teens. New dose of metoprolol given with supper as ordered. B/P checked before given-118/68. HR in the one-teens. No new concerns.
[2017-01-10] MEDS: APIXABAN 5 MG TABLET PO SCH (21:42)
[2017-01-10] MEDS: HYDROCODONE/APAP 5 mg/325 mg TABLET PO SCH (21:43)
[2017-01-11] VITALS (8 sets, daily range): BP systolic 102–124; BP diastolic 51–77; PULSE 78–107; RESP 18–28; TEMP 97.5–98.3; O2SAT 86–94
--- NOTE | 2017-01-11 05:13 | NUR ---
Status Weaned to 2.5-3 L O2 overnight. SAO2 averaged between 90-94% as monitored in room VS machine continuously during night. Turned and pulled up in bed q2h. Refused to ambulate yesterday evening, but is aware that she needs to ambulate to regain strength. Bed alarm on. Call light within reach. Will continue to monitor.
[2017-01-11 05:48] LABS: BASOPHILS % (AUTO) 0.4 % (0-2); EOSINOPHILS # (AUTO) 0.2 T/MM3 (0-0.5); EOSINOPHILS % (AUTO) 3.1 % (0-4); HCT - HEMATOCRIT 38.3 % (36-46); HGB - HEMOGLOBIN 12.4 GM/DL (12-16); IMMATURE GRANULOCYTE # (AUTO) 0.04 T/MM3 (0.00-0.03); IMMATURE GRANULOCYTE % (AUTO) 0.5 % (0.0-0.5); LYMPHOCYTES # (AUTO) 1.5 T/MM3 (1-4.8); LYMPHOCYTES % (AUTO) 19.5 % (23-45); MEAN CORPUSCULAR HGB CONC(MCHC 32.4 GM/DL (31-37); MEAN CORPUSCULAR VOLUME 92.5 UM3 (80-100); MEAN PLATELET VOLUME 11.2 UM3 (9.4-12.4); MONOCYTES # (AUTO) 0.9 T/MM3 (0-0.8); MONOCYTES % (AUTO) 11.7 % (0-9.0); NEUTROPHILS #(AUTO)-ABSOLUTE 4.8 T/MM3 (1.8-7.7); NEUTROPHILS % (AUTO) 64.8 % (33-66); RED BLOOD COUNT 4.14 M/MM3 (4.00-5.20); WBC - WHITE BLOOD COUNT 7.4 T/MM3 (4.5-11.0)
[2017-01-11 05:56] LABS: ANION GAP 6 MEQ/L (5-15); BUN/CREATININE RATIO 36 RATIO (6-26); CALCIUM 8.3 MG/DL (8.4-10.2); CHLORIDE 100 MEQ/L (98-107); CO2 - CARBON DIOXIDE 32 MEQ/L (22-30); CREATININE 0.7 MG/DL (0.7-1.2); GLOMERULAR FILTRATION RATE 79; GLUCOSE 117 MG/DL (65-110); POTASSIUM 4.6 MEQ/L (3.6-5); SODIUM 138 MEQ/L (134-144)
[2017-01-11 06:25] LABS: PROBNP 6500 PG/ML (0-175)
[2017-01-11] MEDS: FUROSEMIDE 20 MG/2 ML INJECTION IV SCH (09:07)
--- NOTE | 2017-01-11 09:07 | DI ---
LOCATION OF DICTATION: [facility] EXAM: CHEST, PA LATERAL HISTORY: ITS.REASON: hypoxia COMPARISON: January 08, 2017 FINDINGS: Moderate calcific atherosclerotic disease of the thoracic aorta. The heart is moderately enlarged. The lungs are poorly hyperexpanded. There are small bilateral pleural effusions with subjacent atelectasis or infiltrates demonstrated. There is moderate spondylosis of the thoracic spine with right convexity curvature. IMPRESSION: 1. Moderate cardiomegaly. 2. Small bilateral pleural effusions with bibasilar atelectasis or pneumonitis/infiltrates. Recommend follow based on continued symptoms. .
[2017-01-11] MEDS: BENAZEPRIL 20 MG TABLET PO SCH (09:08)
[2017-01-11] MEDS: CITALOPRAM 10mg TABLET PO SCH (09:08)
[2017-01-11] MEDS: APIXABAN 5 MG TABLET PO SCH ×2 (09:08→21:14)
[2017-01-11] MEDS: ASPIRIN *EC* 81mg TABLET PO SCH (09:09)
[2017-01-11] MEDS: MAGNESIUM OXIDE 400 MG TABLET PO SCH (09:09)
[2017-01-11] MEDS: NIACIN 100 MG TABLET PO SCH ×3 (09:09→21:15)
[2017-01-11] MEDS: METFORMIN 500 MG TABLET PO SCH (09:09)
[2017-01-11] MEDS: POTASSIUM CHLORIDE 20 MEQ TABLET PO SCH ×2 (09:10→17:40)
--- NOTE | 2017-01-11 10:06 | ECHOF ---
DATE OF PROCEDURE January 09, [address] Davy Haq This is a two-dimensional echo with spectral Doppler, color-flow and M-mode. It was obtained in a patient with shortness of breath and cardiomyopathy. Left atrial dimension is normal. Left ventricle end-diastolic dimension is normal. Left ventricle wall thickness is increased. LV systolic function is reduced with global hypokinesia with ejection fraction of about 40%. Right atrium is normal. Right ventricle is normal. Aortic root dimension is normal. Mitral annulus is calcified. Mitral valve leaflets are sclerotic with no stenosis. Mild mitral regurgitation is present. Aortic valve shows fibrocalcific changes with restriction motion on opening motion. Transaortic velocities are increased with a peak velocity of 2.37 m/sec with a peak gradient of 22 and mean gradient of 14. Aortic valve area is calculated at 1.2 cm2. Moderate aortic insufficiency is present. Tricuspid valve shows mild tricuspid regurgitation with normal estimated pulmonary artery systolic pressure of 32. Pulmonary valve shows no pulmonary insufficiency. There is no pericardial effusion. IMPRESSION 1. Global hypokinesia with ejection fraction of about 40%. 2. Concentric left ventricular hypertrophy. 3. Mitral annulus calcification with mild mitral regurgitation. 4. Moderate aortic stenosis with a valve area of 1.2 cm2 with moderate aortic insufficiency. 5. Mild tricuspid regurgitation with normal estimated pulmonary artery systolic pressure of 32. MTDD
--- NOTE | 2017-01-11 12:38 | PNPDOC ---
DILLAN FONSECA ELECTRONIC DRAFTER 01/11/17 1238: Subjective Date DATE: 01/11/17 TIME: 11:35 Subjective Veronika is sitting up in her room on Medical. She states she feels much better, not as weak, today. She denies chest pain or pressure. Denies dyspnea but get so with exertion. She denies lightheadedness or dizziness. Objective Vital Signs Vital signs Vital Signs 01/11/17 01/11/17 01/11/17 01/11/17 02:16 06:57 07:23 08:00 Temp 98.3 98.2 Pulse 78 100 107 97 Resp 28 18 B/P 117/77 124/74 Pulse Ox 93 94 92 O2 Delivery Nasal Cannula Nasal Cannula Nasal Cannula O2 Flow Rate 3.00 4.00 3.00 Telemetry Rhythm: Atrial Fibrillation Height (Feet): 5 Height (Inches): 5.00 Weight (Kilograms): 58.500 General Alert, Orientated x 3, Cooperative ENMT (Brief) mucosa moist Respiratory (Brief) clear all morrison, equal bilaterally, NOT FOUND: rales, wheezes Cardiovascular (Brief) murmur (3/6), NOT FOUND: click, gallop, pedal edema, regular rate, regular rhythm, rub Abdomen (Brief) BS normo active x4, soft Integumentary (Brief) pink, warm Psychiatric (Brief) alert, oriented Laboratory Laboratory Laboratory Tests Test 01/09/17 17:00 01/09/17 21:23 01/10/17 05:21 01/10/17 06:17 Glucometer 131mg/dL 225mg/dL 112mg/dL White Blood Count 7.9T/MM3 Red Blood Count 4.19M/MM3 Hemoglobin 12.4GM/DL Hematocrit 38.9% Mean Corpuscular Volume 92.8UM3 Mean Corpuscular Hemoglobin 29.6UUG Mean Corpuscular Hemoglobin Concent 31.9GM/DL RDW Standard Deviation 51.3FL Platelet Count 156T/MM3 Mean Platelet Volume 10.9UM3 Immature Granulocyte % (Auto) 0.4% Neutrophils (%) (Auto) 72.2% Lymphocytes (%) (Auto) 15.0% Monocytes (%) (Auto) 10.7% Eosinophils (%) (Auto) 1.4% Basophils (%) (Auto) 0.3% Absolute Immature Granulocyte (auto 0.03T/MM3 Absolute Neutrophils (auto) 5.7T/MM3 Absolute Lymphocytes (auto) 1.2T/MM3 Absolute Monocytes (auto) 0.8T/MM3 Absolute Eosinophils (auto) 0.1T/MM3 Absolute Basophils (auto) 0.0T/MM3 Turbidity < 20 Sodium Level 138MEQ/L Potassium Level 4.0MEQ/L Chloride Level 98MEQ/L Carbon Dioxide Level 31MEQ/L Anion Gap 9MEQ/L Blood Urea Nitrogen 20.0MG/DL Creatinine 0.7MG/DL Glomerular Filtration Rate Calc 79 BUN/Creatinine Ratio 29RATIO Glucose Level 103MG/DL Calculated Osmolality 269MOSM/KG Calcium Level 7.8MG/DL Icterus Index < 2 Chemistry Specimen Hemolysis < 15 Test 01/10/17 11:17 01/10/17 17:35 01/10/17 20:57 01/11/17 05:10 Glucometer 277mg/dL 176mg/dL 258mg/dL 96mg/dL Test 01/11/17 05:11 01/11/17 10:49 White Blood Count 7.4T/MM3 Red Blood Count 4.14M/MM3 Hemoglobin 12.4GM/DL Hematocrit 38.3% Mean Corpuscular Volume 92.5UM3 Mean Corpuscular Hemoglobin 30.0UUG Mean Corpuscular Hemoglobin Concent 32.4GM/DL RDW Standard Deviation 51.4FL Platelet Count 191T/MM3 Mean Platelet Volume 11.2UM3 Immature Granulocyte % (Auto) 0.5% Neutrophils (%) (Auto) 64.8% Lymphocytes (%) (Auto) 19.5% Monocytes (%) (Auto) 11.7% Eosinophils (%) (Auto) 3.1% Basophils (%) (Auto) 0.4% Absolute Immature Granulocyte (auto 0.04T/MM3 Absolute Neutrophils (auto) 4.8T/MM3 Absolute Lymphocytes (auto) 1.5T/MM3 Absolute Monocytes (auto) 0.9T/MM3 Absolute Eosinophils (auto) 0.2T/MM3 Absolute Basophils (auto) 0.0T/MM3 Turbidity < 20 Sodium Level 138MEQ/L Potassium Level 4.6MEQ/L Chloride Level 100MEQ/L Carbon Dioxide Level 32MEQ/L Anion Gap 6MEQ/L Blood Urea Nitrogen 25.0MG/DL Creatinine 0.7MG/DL Glomerular Filtration Rate Calc 79 BUN/Creatinine Ratio 36RATIO Glucose Level 117MG/DL Calculated Osmolality 271MOSM/KG Calcium Level 8.3MG/DL Magnesium Level 2.0MG/DL Icterus Index < 2 [id number] Natriuretic Peptide 6500PG/ML Chemistry Specimen Hemolysis < 15 Glucometer 287mg/dL Laboratory Tests 01/11/17 05:11 Laboratory Tests 01/11/17 05:11 EKG a fib Medications Current Medications Iohexol 1 bottle 1 bottle STK-MED ONCE .ROUTE ; Start 01/08/17 at 13:12; Stop at 13:13; Status DC Sodium Chloride (NS) 100 ml @ As Directed STK-MED ONCE .ROUTE ; Start 01/08/17 at 13:12; Stop 01/08/17 at 13:13; Status DC Sodium Chloride 10 ml 10 ml STK-MED ONCE .ROUTE ; Start 01/08/17 at 13:12; Stop 01/08/17 at 13:13; Status DC Ceftriaxone Sodium 1 g/Sodium Chloride 100 ml @ 100 mls/hr O ONCE IV Last administered on 01/08/17 15:08; Start 01/08/17 at 15:00; Stop 01/08/17 at 15:59 ; Status DC Sodium Chloride 1,000 ml @ 75 mls/hr [id number] IV Last administered on 07:16; Start 01/08/17 at 16:00; Stop 01/09/17 at 11:19; Status DC Ceftriaxone Sodium/Sodium Chloride (Rocephin/NS) 100 ml @ 200 mls/hr DAILY IV Last administered on 01/09/17 08:56; Start 01/09/17 at 09:00; Stop 01/09/17 at 17:26; Status DC Ondansetron HCl (Zofran) 4 mg Q6H PRN IV NAUSEA; Start 01/08/17 at 16:00 Amlodipine/ Benazepril HCl (Lotrel 5/20) 1 cap DAILY PO Last administered on 07:56; Start 01/09/17 at 09:00; Stop 01/10/17 at 11:45; Status DC Aspirin (Ecotrin) 81 mg DAILY PO Last administered on 01/11/17 09:09; Start at 09:00 Citalopram Hydrobromide (Celexa) 10 mg DAILY PO Last administered on 01/11/17 09:08; Start 01/09/17 at 09:00 Magnesium Oxide (Magox) 200 mg DAILY PO Last administered on 01/11/17 09:09; Start 01/09/17 at 09:00 Niacin (Vit. B-3) 50 mg TID PO Last administered on 01/11/17 09:09; Start at 21:00 Acetaminophen/ Hydrocodone Bitart (Lenox 5/325) 1 tab Q4H PRN PO PAIN; Start at 16:00 Miscellaneous Medication (May use PRN orders) PRN PRN MC ; Start 01/08/17 at 16:00 Magnesium Hydroxide (Mom) 30 ml DAILY PRN PO CONSTIPATION; Start 01/08/17 at 16 :00 Bisacodyl (Dulcolax) 10 mg DAILY PRN RECTALLY CONSTIPATION; Start 01/08/17 at 16:00 Al Hydroxide/Mg Hydroxide (Maalox) 30 ml Q3H PRN PO INDIGESTION; Start at 16:00 Acetaminophen (Tylenol Regular Strength) 1-2 TABS PO Q5H PRN PO DISCOMFORT; Start 01/08/17 at 16:00 Nitroglycerin (Nitrostat) 0.4 mg Q5M PRN SL CHEST PAIN; Start 01/08/17 at 16:00 Potassium Chloride (Kdur) 40 meq BIDWM PO Last administered on 01/11/17 09:10 ; Start 01/09/17 at 17:30 Furosemide (Lasix) 20 mg BID. IV Last administered on 01/11/17 09:07; Start at 11:15 Insulin Aspart (Novolog) SS PRN SQ Last administered on 01/10/17 21:06; Start 01/09/17 at 11:15 Enoxaparin Sodium (Lovenox) 60 mg BID SQ Last administered on 01/10/17 09:18; Start 01/09/17 at 16:15; Stop 01/10/17 at 11:45; Status DC Benazepril HCl (LOTENSIN 20 mg) 20 mg DAILY PO Last administered on 01/11/17 09:08; Start 01/11/17 at 09:00 Apixaban (Eliquis) 2.5 mg BID PO Last administered on 01/11/17 09:08; Start at 21:00 Metformin HCl (Glucophage) 500 mg WB PO Last administered on 01/11/17 09:09; Start 01/11/17 at 08:00 Metoprolol Tartrate (Lopressor) 50 mg BIDWM PO Last administered on 01/11/17 09:19; Start 01/11/17 at 09:14 Sepsis Diagnostic Criteria Sepsis Confirmed/Suspected Infection: No Assessment & Plan Problems: (1) Atrial fibrillation with RVR Status: Resolved Assessment & Plan: New onset atrial fibrillation. Rate controlled except with activity. Change Lovenox to Eliquis 2.5mg BID for anticoagulation. Increase Metoprolol to 50mg PO BID. (2) Weakness Status: Acute (3) HTN (hypertension) Status: Chronic Qualifiers: Hypertension type: essential hypertension Qualified Codes: I10 - Essential (primary) hypertension Assessment & Plan: D/C Amlodipine, Continue Benazepril 20mg daily (4) Cardiomegaly Status: Chronic Assessment & Plan: Unknown cause. Obtain echo for EF, and rule out effusion (5) Diabetes mellitus Status: Chronic Qualifiers: Diabetes mellitus type: type 2 Plan/Intensity of Service 01/09/17 New onset A Fib: Rate controlled except with activity. Start Lovenox 1mg/kg SQ BID and follow HGB. Start Metoprolol 25mg PO BID. TSH WNL, Obtain Mag and BNP. Echo ordered by attending to be read by Dr. Shelby. Cardiomegaly: Unknown cause. Obtain echo for EF, and rule out effusion. I examined the patient and discussed with Dr. Shelby, together we agree on the plan of care. 01/10/17 Change Lovenox to Eliquis 2.5mg BID for anticoagulation. Increase Metoprolol to 50mg PO BID. D/C Amlodipine, Continue Benazepril 20mg daily. 01/11/17 Increase Metoprolol to 75mg BID. Thank you for allowing us to participate in this patients care, we will follow along with you LANEY SHELBY MD 01/15/17 1334: Assessment & Plan Plan/Intensity of Service After examining the patient I agree with the above assessment. I am involved in the formulation of the patient's plan of care. DILLAN FONSECA APRN Jan 11, 2017 12:38 LANEY SHELBY MD Jan 15, 2017 13:34
[2017-01-11] MEDS: INSULIN ASPART 100 UNIT/ML SQ PRN (12:39)
--- NOTE | 2017-01-11 13:22 | NUR ---
MARITZA CM VISITED PT. CM EXPLAINED ROLE AND PROVIDED CONTACT INFORMATION. PT PLANS TO RETURN HOME AT TIME OF D/C FROM [facility] [place]. PT WILL CONTINUE TO USE [facility] AT TIME OF D/C. DANA FROM [facility] [place] IS AWARE. PT IS AWARE TO CONTACT CM IF NEEDS ARISE.
--- NOTE | 2017-01-11 14:31 | PNPDOC ---
CAITIE CARRIZALES V IMELDA 01/11/17 1426: Subjective Date DATE: 01/11/17 TIME: 14:21 Subjective Veronika is seen this afternoon while sitting in her room reading the newspaper. She is on 3 liters of oxygen by nasal cannula and saturations are 92%. She states that overall she feels like she has more energy today. He denies chest pain, shortness of breath or GI complaints. Noted that she was intermittently tachycardic. Lopressor was increased to 50 milligrams twice a day. Objective Vital Signs Vital signs Vital Signs Date Time Temp Pulse Resp B/P Pulse Ox O2 Delivery O2 Flow Rate FiO2 01/11/17 08:00 97 01/11/17 07:23 98.2 18 124/74 92 Nasal Cannula 3.00 Telemetry Rhythm: Atrial Fibrillation Height (Feet): 5 Height (Inches): 5.00 Weight (Kilograms): 58.500 General General Appearance: Alert, Orientated x 3, Cooperative, No Acute Distress Eyes (Brief) Eyes: FOUND: EOMI ENMT (Brief) ENMT: FOUND: mucosa moist, normal dentition, NOT FOUND: pharnyx erythema Neck (Brief) Neck: FOUND: midline, NOT FOUND: adenopathy, carotid bruits, tracheal deviation Respiratory (Brief) Respiratory: FOUND: clear all morrison, equal bilaterally, NOT FOUND: wheezes Cardiovascular (Brief) Cardiac: FOUND: regular rate, regular rhythm, NOT FOUND: murmur, pedal edema Capillary Refill: <2 sec Abdomen (Brief) Abdominal: FOUND: BS normo active x4, soft, NOT FOUND: distended, tender Lymphatic (Brief) Lymphatic: NOT FOUND: adenopathy Musculoskeletal (Brief) Musculoskeletal: NOT FOUND: tenderness Integumentary (Brief) Integumentary: FOUND: dry, pink, warm Neurologic (Brief) Neurological: FOUND: cranial 2-12 intact Psychiatric (Brief) Psychiatric: FOUND: alert, attentive, normal affect, oriented Laboratory Laboratory Laboratory Tests 01/10/17 05:21 01/11/17 05:11 Laboratory Tests 01/10/17 05:21 01/11/17 05:11 Sepsis Diagnostic Criteria Sepsis Confirmed/Suspected Infection: No Assessment & Plan Problems: (1) CHF with unknown LVEF Status: Acute (2) Atrial fibrillation with RVR Status: Acute (3) Dehydration Status: Resolved Assessment & Plan: Present on admission (4) Leukocytosis Status: Acute Qualifiers: Leukocytosis type: unspecified Qualified Codes: D72.829 - Elevated white blood cell count, unspecified (5) Urinary tract infection Status: Resolved Assessment & Plan: Ruled out; no white cells on catheter specimen (6) Weakness Status: Acute (7) Chronic wound of extremity Status: Chronic Assessment & Plan: Left elbow (8) HTN (hypertension) Status: Chronic Qualifiers: Hypertension type: essential hypertension Qualified Codes: I10 - Essential (primary) hypertension (9) Diabetes mellitus Status: Chronic (10) Fluid overload Status: Acute Qualifiers: Hypervolemia type: other Qualified Codes: E87.79 - Other fluid overload (11) Hypokalemia Status: Acute Plan/Intensity of Service 01/11/17 Metoprolol increased to 50mg BID for better rate control. Continue on Eliquis BID for anti-coagulation Metformin and sliding scale NovoLog for blood glucose control. Fasting sugar this morning 117. Will work on weaning down oxygen. Encourage work with PT/OT for strengthening. May need some assistance at home at time of discharge as she does live alone Labs remain stable. Code Status Do Not Resuscitate Hospital Course Summary Disclaimer The hospital course summary below is not to be considered part of the above Progress Note. Hospital Course Summary Admit to outpatient observation for dehydration and UTI under the care of Dr. Briseno. Start IV fluids, NaCl at 75ml/hr for gentle hydration Rocephin 1gm IV daily initiated while the emergency room for treatment of acute urinary tract infection. Due to her increased and recent weakness, we will consult PT/OT for evaluation and treatment. [facility] currently manages her elbow wound. We will notify them that she is here. She had her last drsg change yesterday. She gets this done twice weekly. Continue Lotrel for BP control. Vitals are stable, currently 98.1, HR 94, R 18, BP 128/66, 91% RA Holding Metformin due to contrast with Radiology today. Blood glucose testing AC and HS. Will order regular insulin sliding scale since her oral agent is on hold. 1800 calorie Diabetic diet SCDs for DVT prophylaxis. Will discuss further plan of care with attending, Dr. Haq. At time of discharge medical care will return to primary care provider Dr Aly 01/09/17- Pt. appears to be in fluid overload with HF - new onset AFib with RVR. Significant cardiomegaly on imaging. Denies hx of AFib with RVR. Remains in AFib with RVR intermittently- repeat EKG. Add Tele. Consult cardiology-[facility]. I reviewed [facility] records- no documentation of HF or AFib. No echo or CV notes on file there. Give IV Lasix, Add low dose metoprolol to control rate. Ordered Echo. continue O2 for support. Change to inpatient due to need for further evaluation and tx. Concern for PNA, less likely UTI- may be more due to atelectasis. Continue empiric Ceftriaxone for now, but may be able to DC soon. Replace KCL now and continue BID during diuretics. Metformin on hold due to CTA. Add SSI for now- resume metformin tomorrow if stable. Continue PT for weakness. 01/10/17 Noted increased rate this morning up to the 135. Metoprolol increased to 50 milligrams by mouth twice a day. Rate currently 100. Continue with Eliquis was 2.5 milligrams twice a day for chronic anticoagulation given A-fib Lasix 20 IV BID for diuresis, likely new onset CHF Continue to monitor blood sugars, fasting sugar this morning was 103. Sliding scale insulin. Continues on 3.5 Liters of oxygen to maintain saturations Repeat Chest Xray today. Will repeat CBC and BMP tomorrow to follow blood counts renal function and electrolytes Discuss further plan with attending- Dr Corrigan 01/11/17 Metoprolol increased to 50mg BID for better rate control. Continue on Eliquis BID for anti-coagulation Metformin and sliding scale NovoLog for blood glucose control. Fasting sugar this morning 117. Will work on weaning down oxygen. Encourage work with PT/OT for strengthening. May need some assistance at home at time of discharge as she does live alone Labs remain stable. WILLI CORRIGAN MD 01/11/17 8139: Assessment & Plan Assessment I have independently evaluated and examined this patient. I reviewed the chart, the patient's history, and the MEDICAL FRONT DESK COORDINATOR's documented findings as above. We discussed and formulated the assessment and plan as above with additions as below: Mrs. Gonzalez continues to describe no real dyspnea (although physical therapy notes she short of breath ambulating) and denies palpitations. She denied lightheadedness and reports voiding well although fluid balance is positive the past couple of days. There are persistent crackles at the bases bilaterally, patient is alert and speech is fluent. BNP remains elevated; echocardiogram demonstrated ejection fraction of 40% with moderate /AI Rate variable, control improving but up to 150 at times (at least briefly) on telemetry. Discussed with Dr. Shelby and [place]-metoprolol increased to 75 mg twice a day and Lasix increased to 40 mg twice a day. Weight up over the past 2 days if recorded values accurate. In addition to above diagnoses please add: #1 acute/chronic systolic heart failure #2 valvular heart disease/aortic insufficiency/aortic stenosis Additionally note dehydration no longer believed to be present on admission and leukocytosis has resolved. A1C on 12/30/16 was 6.9, metformin resumed today Plan/Intensity of Service Discussed with Dr. Shelby, laboratory data reviewed, echocardiogram reviewed, telemetry strips reviewed. CAITIE CARRIZALES APRN Jan 11, 2017 14:26 WILLI CORRIGAN MD Jan 11, 2017 17:39
--- NOTE | 2017-01-11 15:06 | NUR ---
activity Ambulated with r.t. on room air is a little unsteady when up. sats are 86% after walking. on room air.
--- NOTE | 2017-01-11 16:50 | NUR ---
o2 on at 2 liters sitting chair. no co of soa noted.
[2017-01-11] MEDS ORDERED: NITROGLYCERIN 0.4 MG SUBLINGUAL TABLET SL PRN (18:15)
[2017-01-11] MEDS ORDERED: MILK OF MAGNESIA 30 ML SUSP PO PRN (18:15)
[2017-01-11] MEDS ORDERED: BISACODYL 5 MG E.C. TABLET PO PRN (18:15)
[2017-01-11] MEDS ORDERED: LORAZEPAM 2 MG/ML INJECTION IV PRN (18:15)
[2017-01-11] MEDS ORDERED: PROMETHAZINE 25 MG INJECTION IV PRN (18:15)
[2017-01-11] MEDS ORDERED: ACETAMINOPHEN 325 MG TABLET PO PRN (18:15)
[2017-01-11] MEDS ORDERED: HYDROCODONE/APAP 5 mg/325 mg TABLET PO PRN (18:15)
[2017-01-11] MEDS ORDERED: BISACODYL 10 MG SUPPOSITORY RECTALLY PRN (18:15)
[2017-01-11] MEDS ORDERED: ONDANSETRON 4mg/2ml INJECTION IV PRN (18:15)
[2017-01-11] MEDS ORDERED: METOCLOPRAMIDE 10mg/2ml INJECTION IV PRN (18:15)
[2017-01-11] MEDS ORDERED: ATROPINE 1 MG/ML VIAL IV PRN (18:15)
[2017-01-11] MEDS ORDERED: MORPHINE SULFATE 4 MG SYRINGE IV PRN ×2 (18:15)
[2017-01-11] MEDS ORDERED: MAG-AL + SIM LIQUID 30 ML UDC PO PRN (18:15)
[2017-01-11] MEDS ORDERED: LORAZEPAM 1 MG TABLET PO PRN (18:15)
[2017-01-11] MEDS: HYDROCODONE/APAP 5 mg/325 mg TABLET PO SCH (21:16)
[2017-01-12] VITALS (8 sets, daily range): BP systolic 108–137; BP diastolic 62–69; PULSE 54–72; RESP 18–20; TEMP 97.7–98; O2SAT 90–97
--- NOTE | 2017-01-12 06:27 | NUR ---
Status Rested well, no distress. Refused SCD's this shift, educated but continues to refuse.
[2017-01-12] MEDS ORDERED: CLOPIDOGREL 75 MG TABLET PO SCH (09:00)
[2017-01-12] MEDS: POTASSIUM CHLORIDE 20 MEQ TABLET PO SCH ×2 (09:36→17:59)
[2017-01-12] MEDS: APIXABAN 5 MG TABLET PO SCH ×2 (09:36→22:27)
[2017-01-12] MEDS: ASPIRIN *EC* 81mg TABLET PO SCH (09:36)
[2017-01-12] MEDS: CITALOPRAM 10mg TABLET PO SCH (09:36)
[2017-01-12] MEDS: NIACIN 100 MG TABLET PO SCH ×3 (09:37→22:27)
[2017-01-12] MEDS: METFORMIN 500 MG TABLET PO SCH (09:37)
[2017-01-12] MEDS: BENAZEPRIL 20 MG TABLET PO SCH (09:37)
[2017-01-12] MEDS: MAGNESIUM OXIDE 400 MG TABLET PO SCH (09:37)
[2017-01-12] MEDS: FUROSEMIDE 20 MG/2 ML INJECTION IV SCH ×2 (09:38→14:35)
--- NOTE | 2017-01-12 10:58 | PNPDOC ---
DILLAN FONSECA HEALTH COORDINATOR 01/12/17 1058: Subjective Date DATE: 01/12/17 TIME: 10:55 Subjective Veronika is sitting up in the chair, she just returned from the bathroom. She denies chest pain or palpitations. Objective Vital Signs Vital signs Vital Signs 01/11/17 01/12/17 01/12/17 01/12/17 23:48 00:00 07:36 08:00 Temp 97.7 97.8 Pulse 97 63 72 68 Resp 20 20 20 B/P 128/69 137/67 Pulse Ox 94 96 O2 Delivery Nasal Cannula Nasal Cannula O2 Flow Rate 2.00 2.00 Telemetry Rhythm: Sinus Rhythm, Atrial Fibrillation Telemetry Ectopy: PAC Height (Feet): 5 Height (Inches): 5.00 Weight (Kilograms): 59.000 General Alert, Orientated x 3, Cooperative ENMT (Brief) mucosa moist Neck (Brief) NOT FOUND: JVD, carotid bruits Respiratory (Brief) clear all morrison, equal bilaterally (diminished bases), NOT FOUND: rales, wheezes Cardiovascular (Brief) murmur (3/6), NOT FOUND: click, gallop, pedal edema, regular rate, regular rhythm, rub Abdomen (Brief) BS normo active x4, soft, NOT FOUND: tender Integumentary (Brief) dry, pink, warm Psychiatric (Brief) alert, oriented Laboratory Laboratory Laboratory Tests Test 01/10/17 11:17 01/10/17 17:35 01/10/17 20:57 01/11/17 05:10 Glucometer 277mg/dL 176mg/dL 258mg/dL 96mg/dL Test 01/11/17 05:11 01/11/17 10:49 01/11/17 17:47 01/11/17 21:13 White Blood Count 7.4T/MM3 Red Blood Count 4.14M/MM3 Hemoglobin 12.4GM/DL Hematocrit 38.3% Mean Corpuscular Volume 92.5UM3 Mean Corpuscular Hemoglobin 30.0UUG Mean Corpuscular Hemoglobin Concent 32.4GM/DL RDW Standard Deviation 51.4FL Platelet Count 191T/MM3 Mean Platelet Volume 11.2UM3 Immature Granulocyte % (Auto) 0.5% Neutrophils (%) (Auto) 64.8% Lymphocytes (%) (Auto) 19.5% Monocytes (%) (Auto) 11.7% Eosinophils (%) (Auto) 3.1% Basophils (%) (Auto) 0.4% Absolute Immature Granulocyte (auto 0.04T/MM3 Absolute Neutrophils (auto) 4.8T/MM3 Absolute Lymphocytes (auto) 1.5T/MM3 Absolute Monocytes (auto) 0.9T/MM3 Absolute Eosinophils (auto) 0.2T/MM3 Absolute Basophils (auto) 0.0T/MM3 Turbidity < 20 Sodium Level 138MEQ/L Potassium Level 4.6MEQ/L Chloride Level 100MEQ/L Carbon Dioxide Level 32MEQ/L Anion Gap 6MEQ/L Blood Urea Nitrogen 25.0MG/DL Creatinine 0.7MG/DL Glomerular Filtration Rate Calc 79 BUN/Creatinine Ratio 36RATIO Glucose Level 117MG/DL Calculated Osmolality 271MOSM/KG Calcium Level 8.3MG/DL Magnesium Level 2.0MG/DL Icterus Index < 2 NH-Hbe-N-Type Natriuretic Peptide 6500PG/ML Chemistry Specimen Hemolysis < 15 Glucometer 287mg/dL 143mg/dL 249mg/dL Test 01/12/17 05:51 Glucometer 121mg/dL Medications Current Medications Iohexol 1 bottle 1 bottle STK-MED ONCE .ROUTE ; Start 01/08/17 at 13:12; Stop at 13:13; Status DC Sodium Chloride (NS) 100 ml @ As Directed STK-MED ONCE .ROUTE ; Start 01/08/17 at 13:12; Stop 01/08/17 at 13:13; Status DC Sodium Chloride 10 ml 10 ml STK-MED ONCE .ROUTE ; Start 01/08/17 at 13:12; Stop 01/08/17 at 13:13; Status DC Ceftriaxone Sodium 1 g/Sodium Chloride 100 ml @ 100 mls/hr O ONCE IV Last administered on 01/08/17 15:08; Start 01/08/17 at 15:00; Stop 01/08/17 at 15:59 ; Status DC Sodium Chloride 1,000 ml @ 75 mls/hr [id number] IV Last administered on 07:16; Start 01/08/17 at 16:00; Stop 01/09/17 at 11:19; Status DC Ceftriaxone Sodium/Sodium Chloride (Rocephin/NS) 100 ml @ 200 mls/hr DAILY IV Last administered on 01/09/17 08:56; Start 01/09/17 at 09:00; Stop 01/09/17 at 17:26; Status DC Amlodipine/ Benazepril HCl (Lotrel 5/20) 1 cap DAILY PO Last administered on 07:56; Start 01/09/17 at 09:00; Stop 01/10/17 at 11:45; Status DC Aspirin (Ecotrin) 81 mg DAILY PO Last administered on 01/12/17 09:36; Start at 09:00 Citalopram Hydrobromide (Celexa) 10 mg DAILY PO Last administered on 01/12/17 09:36; Start 01/09/17 at 09:00 Magnesium Oxide (Magox) 200 mg DAILY PO Last administered on 01/12/17 09:37; Start 01/09/17 at 09:00 Niacin (Vit. B-3) 50 mg TID PO Last administered on 01/12/17 09:37; Start at 21:00 Miscellaneous Medication (May use PRN orders) PRN PRN MC ; Start 01/08/17 at 16:00 Potassium Chloride (Kdur) 40 meq BIDWM PO Last administered on 01/12/17 09:36 ; Start 01/09/17 at 17:30 Insulin Aspart (Novolog) SS PRN SQ Last administered on 01/11/17 12:39; Start 01/09/17 at 11:15 Enoxaparin Sodium (Lovenox) 60 mg BID SQ Last administered on 01/10/17 09:18; Start 01/09/17 at 16:15; Stop 01/10/17 at 11:45; Status DC Benazepril HCl (LOTENSIN 20 mg) 20 mg DAILY PO Last administered on 01/12/17 09:37; Start 01/11/17 at 09:00 Apixaban (Eliquis) 2.5 mg BID PO Last administered on 01/12/17 09:36; Start at 21:00 Metformin HCl (Glucophage) 500 mg WB PO Last administered on 01/12/17 09:37; Start 01/11/17 at 08:00 Metoprolol Tartrate (Lopressor) 75 mg BIDWM PO Last administered on 01/12/17 09:37; Start 01/11/17 at 17:30 Furosemide (Lasix) 40 mg BID.. IV Last administered on 01/12/17 09:38; Start 01/12/17 at 09:00 Atropine Sulfate (ATROPINE 1mg INJ) 0.5 mg Q5M PRN IV pulse<40 bpm AND symptomatic; Start 01/11/17 at 18:15; Status Cancel Acetaminophen (Tylenol Regular Strength) 325-650 mg Q5H PRN PO PAIN; Start at 18:15; Status UNV Morphine Sulfate (Morphine) 2-4 mg Q5MIN PRN IV ANGINA; Start 01/11/17 at 18:15 ; Status Cancel Acetaminophen/ Hydrocodone Bitart ([place] 5/325) 1-2 tabs Q5H PRN PO PAIN; Start 01/11/17 at 18:15; Status UNV Promethazine HCl (Phenergan) 12.5-25 mg Q6H PRN IV NAUSEA &/OR VOMITING; Start 01/11/17 at 18:15; Status Cancel Nitroglycerin (Nitrostat) 0.4 mg Q5MIN PRN SL ANGINA; Start 01/11/17 at 18:15; Status UNV Magnesium Hydroxide (Mom) 30 ml DAILY PRN PO CONSTIPATION; Start 01/11/17 at 18 :15; Status UNV Bisacodyl (Dulcolax) 5-10 mg DAILY PRN PO CONSTIPATION; Start 01/11/17 at 18:15 ; Status Cancel Al Hydroxide/Mg Hydroxide (Maalox) 30 ml Q3H PRN PO INDIGESTION; Start at 18:15; Status UNV Lorazepam (Ativan) 0.5-1 mg Q4H PRN IV ANXIETY; Start 01/11/17 at 18:15; Status Cancel Metoclopramide HCl (REGLAN Inj) 5-10 mg Q6H PRN IV NAUSEA &/OR VOMITING; Start 01/11/17 at 18:15; Status Cancel Ondansetron HCl (Zofran) 4 mg Q6H PRN IV NAUSEA &/OR VOMITING; Start 01/11/17 at 18:15; Status UNV Clopidogrel Bisulfate (Plavix) 75 mg DAILY PO ; Start 01/12/17 at 09:00; Status Cancel Radiology DATE OF EXAM: 01/10/17 ORDERING DOCTOR: WILLI GOMEZ MD TYPE OF EXAM: CHEST, PA & LATERAL REASON FOR EXAM: hypoxia LOCATION OF DICTATION: [place] EXAM: CHEST, PA LATERAL HISTORY: ITS.REASON: hypoxia COMPARISON: January 08, 2017 FINDINGS: Moderate calcific atherosclerotic disease of the thoracic aorta. The heart is moderately enlarged. The lungs are poorly hyperexpanded. There are small bilateral pleural effusions with subjacent atelectasis or infiltrates demonstrated. There is moderate spondylosis of the thoracic spine with right convexity curvature. IMPRESSION: 1. Moderate cardiomegaly. 2. Small bilateral pleural effusions with bibasilar atelectasis or pneumonitis/infiltrates. Recommend follow based on continued symptoms. Sepsis Diagnostic Criteria Sepsis Confirmed/Suspected Infection: No Assessment & Plan Problems: (1) Atrial fibrillation with RVR Status: Resolved Assessment & Plan: New onset atrial fibrillation. Rate controlled except with activity. Change Lovenox to Eliquis 2.5mg BID for anticoagulation. Increase Metoprolol to 50mg PO BID. (2) Weakness Status: Acute (3) HTN (hypertension) Status: Chronic Qualifiers: Hypertension type: essential hypertension Qualified Codes: I10 - Essential (primary) hypertension Assessment & Plan: D/C Amlodipine, Continue Benazepril 20mg daily (4) Cardiomegaly Status: Chronic Assessment & Plan: Unknown cause. Obtain echo for EF, and rule out effusion (5) Diabetes mellitus Status: Chronic Qualifiers: Diabetes mellitus type: type 2 Plan/Intensity of Service 01/09/17 New onset A Fib: Rate controlled except with activity. Start Lovenox 1mg/kg SQ BID and follow HGB. Start Metoprolol 25mg PO BID. TSH WNL, Obtain Mag and BNP. Echo ordered by attending to be read by Dr. Arriola. Cardiomegaly: Unknown cause. Obtain echo for EF, and rule out effusion. I examined the patient and discussed with Dr. Arriola, together we agree on the plan of care. 01/10/17 Change Lovenox to Eliquis 2.5mg BID for anticoagulation. Increase Metoprolol to 50mg PO BID. D/C Amlodipine, Continue Benazepril 20mg daily. 01/11/17 Increase Metoprolol to 75mg BID. 01/12/17 Stop Aspirin and Niacin. BMP and BNP in am please Thank you for allowing us to participate in this patients care, we will follow along with you LANEY ARRIOLA MD 01/15/17 1346: Assessment & Plan Plan/Intensity of Service After examining the patient I agree with the above assessment. I am involved in the formulation of the patient's plan of care. DILLAN FONSECA APRN Jan 12, 2017 10:58 LANEY ARRIOLA MD Jan 15, 2017 13:46
[2017-01-12] MEDS: INSULIN ASPART 100 UNIT/ML SQ PRN (11:33)
--- NOTE | 2017-01-12 11:51 | PNPDOC ---
DEMETRI POMPA NEGATIVE DEVELOPER 01/12/17 1126: Subjective Date DATE: 01/12/17 TIME: 11:22 Subjective Veronika feels much better today - she denies feeling short of breath today. No chest pain. She denies feeling weak or dizzy. She noted an itchy red [place]cree to her inner left thigh this morning, but by the time I arrived it had completely resolved. She reports that this occurs at home from time to time, and she usually just puts some benadryl cream on it and it resolves. She denies any leg swelling. No abdominal pain or GI complaints. She has been ambulatory but her sats dropped to 86% on 1.5L with walking this morning per her nurse. Veronika feels ready to go home. Objective Vital Signs Vital signs Vital Signs Date Time Temp Pulse Resp B/P Pulse Ox O2 Delivery O2 Flow Rate FiO2 01/12/17 08:00 68 20 01/12/17 07:36 97.8 137/67 96 Nasal Cannula 2.00 Telemetry Rhythm: Sinus Rhythm Telemetry Ectopy: PAC Height (Feet): 5 Height (Inches): 5.00 Weight (Kilograms): 59.000 General General Appearance: Alert, Orientated x 3, Well Nourished, Well Developed, No Acute Distress Eyes (Brief) Eyes: FOUND: PERRL, NOT FOUND: scleral icterus ENMT (Brief) ENMT: FOUND: mucosa moist, NOT FOUND: pharnyx erythema Respiratory (Brief) Respiratory: FOUND: equal bilaterally Comments faint bibasilar crackles Cardiovascular (Brief) Cardiac: FOUND: murmur, regular rate, regular rhythm Abdomen (Brief) Abdominal: FOUND: BS normo active x4, soft, NOT FOUND: distended, tender Extremities (Brief) Extremity : Side: Bilateral Extremity: leg Extremity Finding: NOT FOUND: edema Musculoskeletal (Brief) Musculoskeletal: NOT FOUND: deformity Integumentary (Brief) Integumentary: FOUND: dry, pink, warm, NOT FOUND: rash (no erythema to left inner thigh) Psychiatric (Brief) Psychiatric: FOUND: alert, attentive, normal affect, oriented Laboratory Laboratory Laboratory Tests 01/11/17 05:11 Laboratory Tests 01/11/17 05:11 Sepsis Diagnostic Criteria Sepsis Confirmed/Suspected Infection: No Assessment & Plan Problems: (1) Systolic heart failure Status: Acute Qualifiers: Heart failure chronicity: acute on chronic Qualified Codes: I50.23 - Acute on chronic systolic (congestive) heart failure Assessment & Plan: Echo 01/09/17 Dr. Shelby 1. Global hypokinesia with ejection fraction of about 40%. 2. Concentric left ventricular hypertrophy. 3. Mitral annulus calcification with mild mitral regurgitation. 4. Moderate aortic stenosis with a valve area of 1.2 cm2 with moderate aortic insufficiency. 5. Mild tricuspid regurgitation with normal estimated pulmonary artery systolic pressure of 32. (2) Fluid overload Status: Acute Qualifiers: Hypervolemia type: other Qualified Codes: E87.79 - Other fluid overload (3) Hypoxia Status: Acute (4) Weakness Status: Acute (5) Hypokalemia Status: Resolved (6) Valvular disease Status: Chronic (7) Atrial fibrillation with RVR Status: Resolved Assessment & Plan: Converted to NSR on 01/12/17 (8) Dehydration Status: Resolved Assessment & Plan: Present on admission (9) Leukocytosis Status: Resolved Qualifiers: Leukocytosis type: unspecified Qualified Codes: D72.829 - Elevated white blood cell count, unspecified (10) Chronic wound of extremity Status: Chronic Assessment & Plan: Left elbow (11) HTN (hypertension) Status: Chronic Qualifiers: Hypertension type: essential hypertension Qualified Codes: I10 - Essential (primary) hypertension (12) Diabetes mellitus Status: Chronic Qualifiers: Diabetes mellitus type: type 2 Assessment Plan/Intensity of Service A-fib - pt converted to NSR early in the morning. Tolerating increased dose of metoprolol (75 mg BID) Acute on chronic systolic CHF with 7 kg weight gain - Continues on higher dose of IV diuresis with Lasix 40 mg IV BID. Hypoxia - sats dropped to 86% on 1.5L during ambulation - will obtain ambulatory oximetry to determine what O2 needs are with activity. Hyperglycemia - she's on metformin 500 mg daily and SSI - metformin was just restarted yesterday. Change accucheck timing to 2-hr postprandial. Last A1c (at [facility]) was on 12/30/16 and was 6.9% (trending up from 6.5%). Discussed with Dr. Corrigan - possible discharge tomorrow. DVT Prophylaxis: other (Eliquis) Code Status Do Not Resuscitate Hospital Course Summary Disclaimer The hospital course summary below is not to be considered part of the above Progress Note. Hospital Course Summary Admit to outpatient observation for dehydration and UTI under the care of Dr. Briseno. Start IV fluids, NaCl at 75ml/hr for gentle hydration Rocephin 1gm IV daily initiated while the emergency room for treatment of acute urinary tract infection. Due to her increased and recent weakness, we will consult PT/OT for evaluation and treatment. [facility] currently manages her elbow wound. We will notify them that she is here. She had her last drsg change yesterday. She gets this done twice weekly. Continue Lotrel for BP control. Vitals are stable, currently 98.1, HR 94, R 18, BP 128/66, 91% RA Holding Metformin due to contrast with Radiology today. Blood glucose testing AC and HS. Will order regular insulin sliding scale since her oral agent is on hold. 1800 calorie Diabetic diet SCDs for DVT prophylaxis. Will discuss further plan of care with attending, Dr. Haq. At time of discharge medical care will return to primary care provider Dr Aly 01/09/17- Pt. appears to be in fluid overload with HF - new onset AFib with RVR. Significant cardiomegaly on imaging. Denies hx of AFib with RVR. Remains in AFib with RVR intermittently- repeat EKG. Add Tele. Consult cardiology-[facility]. I reviewed [facility] records- no documentation of HF or AFib. No echo or CV notes on file there. Give IV Lasix, Add low dose metoprolol to control rate. Ordered Echo. continue O2 for support. Change to inpatient due to need for further evaluation and tx. Concern for PNA, less likely UTI- may be more due to atelectasis. Continue empiric Ceftriaxone for now, but may be able to DC soon. Replace KCL now and continue BID during diuretics. Metformin on hold due to CTA. Add SSI for now- resume metformin tomorrow if stable. Continue PT for weakness. 01/10/17 Noted increased rate this morning up to the 135. Metoprolol increased to 50 milligrams by mouth twice a day. Rate currently 100. Continue with Eliquis was 2.5 milligrams twice a day for chronic anticoagulation given A-fib Lasix 20 IV BID for diuresis, likely new onset CHF Continue to monitor blood sugars, fasting sugar this morning was 103. Sliding scale insulin. Continues on 3.5 Liters of oxygen to maintain saturations Repeat Chest Xray today. Will repeat CBC and BMP tomorrow to follow blood counts renal function and electrolytes Discuss further plan with attending- Dr Corrigan 01/11/17 Metoprolol increased to 50mg BID for better rate control. Continue on Eliquis BID for anti-coagulation Metformin and sliding scale NovoLog for blood glucose control. Fasting sugar this morning 117. Will work on weaning down oxygen. Encourage work with PT/OT for strengthening. May need some assistance at home at time of discharge as she does live alone BNP remains elevated; echocardiogram demonstrated ejection fraction of 40% with moderate /AI Rate variable, control improving but up to 150 at times (at least briefly) on telemetry. Discussed with Dr. Cruz-metoprolol increased to 75 mg twice a day and Lasix increased to 40 mg twice a day. Weight up over the past 2 days if recorded values accurate. 01/12/17 A-fib - pt converted to NSR early in the morning. Tolerating increased dose of metoprolol (75 mg BID) Acute on chronic systolic CHF with 7 kg weight gain - Continues on higher dose of IV diuresis with Lasix 40 mg IV BID. Hypoxia - sats dropped to 86% on 1.5L during ambulation - will obtain ambulatory oximetry to determine what O2 needs are with activity. Hyperglycemia - she's on metformin 500 mg daily and SSI - metformin was just restarted yesterday. Change accucheck timing to 2-hr postprandial. Last A1c (at [facility]) was on 12/30/16 and was 6.9% (trending up from 6.5%). Discussed with Dr. Corrigan - possible discharge tomorrow. WILLI CORRIGAN MD 01/12/17 1501: Assessment & Plan Assessment I have independently evaluated and examined this patient. I reviewed the chart, the patient's history, and the NEGATIVE DEVELOPER's documented findings as above. We discussed and formulated the assessment and plan as above with additions as below: Mrs. Gonzalez continues to report feeling well and describes ambulating much more comfortably and further using a walker today. She denies dyspnea or cough. Patient is alert. Cardiac rhythm is irregular with occasional ectopic beats. 2/ 6 systolic murmur noted. Crackles persist at the bases bilaterally. Trace bilateral lower extremity edema. Telemetry strips reviewed-converted to sinus rhythm with APCs at some point between midnight and 6 AM. Twelve-lead EKG reviewed confirming sinus rhythm. Continue to titrate oxygen-most recently 97% on 1 L at rest; checking room air O2 sat. Continue diuresis-may be more effective now that in sinus rhythm. With exercise oxygen level dropped to 85% on room air this morning. Anticipate patient will require O2 at discharge. Given improvement in oxygenation over the past 24 hours (required 4 L supplemental O2 early yesterday, now 1 L) plan nocturnal oximetry tonight to assess nocturnal needs. Weight up 7 kg however virtually all of it was in the first 24 hours and suspect initial weight in error. Plan/Intensity of Service Discussed with nursing and case management. Chest x-ray ordered, laboratory data reviewed and additional studies ordered for tomorrow. DEMETRI POMPA APRN Jan 12, 2017 11:26 WILLI CORRIGAN MD Jan 12, 2017 15:01
--- NOTE | 2017-01-12 11:56 | NUR ---
CM CM VISITED WITH PT ABOUT POSSIBLE NEED FOR OXYGEN AT TIE OF [place] [facility]. PT WAS HOPING NOT TO NEED OXYGEN UPON GOING HOME. PT WILL USE [facility] FOR OXYGEN NEEDS. PT IS AWARE TO CONTACT CM IF NEEDS [facility]. PT STATES THAT SHE WILL USE [facility] AT TIME OF D/C BUT ONLY BECAUSE OF THE POSSIBLE NEED FOR OXYGEN DUE TO IT BEING NEW FOR PT.
--- NOTE | 2017-01-12 15:22 | NUR ---
respir weaned off of o2 sat is 91 to 93% denies any soa. will continue to monitor.
--- NOTE | 2017-01-12 18:36 | NUR ---
shift status remains on room air, tele is sr with [facility] pac. up to chair for meals.
[2017-01-12] MEDS: HYDROCODONE/APAP 5 mg/325 mg TABLET PO SCH (22:27)
[2017-01-13] VITALS (10 sets, daily range): BP systolic 110–139; BP diastolic 58–69; PULSE 58–78; RESP 14–22; TEMP 96.9–98; O2SAT 91–95
[2017-01-13 06:26] LABS: ANION GAP 9 MEQ/L (5-15); BUN/CREATININE RATIO 37 RATIO (6-26); CALCIUM 8.6 MG/DL (8.4-10.2); CHLORIDE 96 MEQ/L (98-107); CO2 - CARBON DIOXIDE 35 MEQ/L (22-30); CREATININE 0.7 MG/DL (0.7-1.2); GLOMERULAR FILTRATION RATE 79; GLUCOSE 120 MG/DL (65-110); MAGNESIUM 1.9 MG/DL (1.6-2.3); POTASSIUM 4.7 MEQ/L (3.6-5); SODIUM 140 MEQ/L (134-144)
--- NOTE | 2017-01-13 06:28 | NUR ---
Status Pt slept well, went to xray at this time.
--- NOTE | 2017-01-13 09:04 | DI ---
INDICATION: ITS.REASON: CHF PROCEDURE: CHEST 2-VIEWS UPRIGHT (PA \T\ LAT) Encounter: Initial COMPARISON: January 10, 2017 FINDINGS: Small bilateral pleural effusions are unchanged with slightly improved aeration of the lower lobes. Upper lung morrison are grossly clear. No pneumothorax or definite new infiltrate. Heart size and mediastinal contours are stable. Pulmonary vascularity is slightly less congested. Impression: Slight improvement in pulmonary edema with similar small pleural effusions. .
[2017-01-13] MEDS: METFORMIN 500 MG TABLET PO SCH (09:37)
[2017-01-13] MEDS: POTASSIUM CHLORIDE 20 MEQ TABLET PO SCH (09:42)
[2017-01-13] MEDS: APIXABAN 5 MG TABLET PO SCH (09:44)
[2017-01-13] MEDS: FUROSEMIDE 20 MG/2 ML INJECTION IV SCH ×2 (09:46→14:00)
[2017-01-13] MEDS: NIACIN 100 MG TABLET PO SCH (09:49)
[2017-01-13] MEDS: BENAZEPRIL 20 MG TABLET PO SCH (09:51)
[2017-01-13] MEDS: MAGNESIUM OXIDE 400 MG TABLET PO SCH (09:52)
[2017-01-13] MEDS: CITALOPRAM 10mg TABLET PO SCH (09:53)
[2017-01-13] MEDS: ASPIRIN *EC* 81mg TABLET PO SCH (09:54)
[2017-01-13] MEDS: INSULIN ASPART 100 UNIT/ML SQ PRN (10:41)
[2017-01-13] MEDS ORDERED: POTA-81 PO (12:04)
[2017-01-13] MEDS ORDERED: BENA20TA3 PO (12:04)
[2017-01-13] MEDS ORDERED: FURO40TA5 PO (12:04)
[2017-01-13] MEDS ORDERED: APIX5TAB PO (12:04)
[2017-01-13] MEDS ORDERED: METO-482 PO (12:04)
--- NOTE | 2017-01-13 12:46 | NUR ---
scripts called to [facility]
--- NOTE | 2017-01-13 13:58 | NUR ---
CM PT WILL D/C HOME TODAY PER DR GOMEZ. PT WILL CONTINUE WITH [facility] AND THEY ARE AWARE OF D/C FOR TODAY. PT WILL USE [facility] FOR OXYGEN AND [facility] FOR HOME USE IS IN ROOM AND [facility] AWARE. PT HAS PROVIDED WITH [facility] CONTACT NUMBER AND IS NOTED ON D/C INSTRUCTIONS. PT IS AWARE TO CONTACT CM IF NEEDS ARISE.
--- NOTE | 2017-01-13 14:31 | NUR ---
DISMISSAL TO HOME VSS. ON RA AT REST. SENT HOME WITH O2 TO WEAR AT NIGHT AND WITH ACTIVITY. SON PRESENT FOR DISMISSAL INSTRUCTIONS. BOTH AWARE TO CALL O2 COMPANY WHEN ARRIVING HOME, SCRIPTS CALLED IN TO PHARMACY, [employer] SENT WITH PT, WALKER SCRIPT SENT, BELONGINGS RETURNED ALONG WITH [facility]. SON TRANSPORTING PT HOME.
--- NOTE | 2017-01-13 14:38 | NUR ---
PT NOTE: Pt d/c to home prior to treatment today. Unable to assess. D/C PT
--- NOTE | 2017-01-13 15:56 | DSPDOC ---
CAITIE CARRIZALES V SH[employer]TLE PREPARATION SUPERVISOR 01/13/17 1553: General Date Date DATE: 01/13/17 TIME: 15:48 Attending Physician Diane Corrigan MD Admitting Physician Diane Corrigan MD Consulting Physician Laney Arriola MD Admitting Diagnosis Dehydration, Generalized Weakness Discharge Diagnosis Systolic heart failure Hypoxia Atrial fibrillation with RVR Dehydration Hypokalemia-resolved Leukocytosis had been resolved Diabetes Hypertension Valvular disease Chronic left elbow wound Procedures 01/10/17-echocardiogram- read by Dr. Arriola. Global hypokinesia with an EF of 40 %, moderate aortic stenosis, moderate aortic insufficiency, mild tricuspid regurgitation. Laboratory Laboratory Tests Test 01/12/17 05:51 01/12/17 11:17 01/12/17 17:16 01/12/17 20:27 Glucometer 121mg/dL (65-110) 209mg/dL (65-110) 169mg/dL (65-110) 216mg/dL (65-110) Test 01/13/17 05:17 01/13/17 05:57 01/13/17 10:16 01/13/17 13:55 Turbidity < 20 (0-20) Sodium Level 140MEQ/L (134-144) Potassium Level 4.7MEQ/L (3.6-5) Chloride Level 96MEQ/L (98-107) Carbon Dioxide Level 35MEQ/L (22-30) Anion Gap 9MEQ/L (5-15) Blood Urea Nitrogen 26.0MG/DL (7-17) Creatinine 0.7MG/DL (0.7-1.2) Glomerular Filtration Rate Calc 79 BUN/Creatinine Ratio 37RATIO (6-26) Glucose Level 120MG/DL (65-110) Calculated Osmolality 275MOSM/KG (261-280) Calcium Level 8.6MG/DL (8.4-10.2) Magnesium Level 1.9MG/DL (1.6-2.3) Icterus Index < 2 (0-7) IK-Wkr-N-Type Natriuretic Peptide 3280PG/ML (0-175) Chemistry Specimen Hemolysis < 15 (0-25) Glucometer 116mg/dL (65-110) 275mg/dL (65-110) 136mg/dL (65-110) Microbiology None Radiology 01/08/17-CT scan of the head-oh intracranial abnormality or hemorrhage 01/08/17-chest x-ray- Mild pulmonary edema, cardiomegaly 01/08/17-venous duplex bilateral lower extremity revealing no evidence of acute DVT 01/11/17-chest x-ray revealing continued moderate cardiomegaly with small bilateral pleural effusions 01/13/17-chest x-ray- improvement in pulmonary edema, similar small effusions present History of Present Illness Patient is a pleasant 86-year-old female who lives independently at home with her cat. Morning she woke up and felt we could not get out of her chair. She called EMS for help. They brought her to the emergency room for further evaluation and treatment. Upper studies were obtained. White count 7 be slightly elevated at 11.6, hemoglobin 12.5, hematocrit 38.2, platelet count 141 , 90 percent neutrophils. Sodium is 135, potassium 3.7, BUNs 24, creatinine 0.7 , glucose 238. Total bilirubin is elevated at 1.5. TSH 1.27. A urinalysis is obtained showing 2+ protein, trace ketones, 3+ blood with 2+ bacteria. Chest x- ray and CT of the chest and abdomen were performed indicating no acute findings. Bilateral lower extremity venous Doppler was obtained showing no acute evidence of DVT. She was afebrile at 98.8, was tachycardic at 109. Room air saturations 92%. Given her weakness and findings of UTI Hospital services will contact accepted patient for outpatient omission for further evaluation and treatment. Hospital Course Admit to outpatient observation for dehydration and UTI under the care of Dr. Briseno. Start IV fluids, NaCl at 75ml/hr for gentle hydration Rocephin 1gm IV daily initiated while the emergency room for treatment of acute urinary tract infection. Due to her increased and recent weakness, we will consult PT/OT for evaluation and treatment. [facility] currently manages her elbow wound. We will notify them that she is here. She had her last drsg change yesterday. She gets this done twice weekly. Continue Lotrel for BP control. Vitals are stable, currently 98.1, HR 94, R 18, BP 128/66, 91% RA Holding Metformin due to contrast with Radiology today. Blood glucose testing AC and HS. Will order regular insulin sliding scale since her oral agent is on hold. 1800 calorie Diabetic diet SCDs for DVT prophylaxis. Will discuss further plan of care with attending, Dr. Haq. At time of discharge medical care will return to primary care provider Dr Aly 01/09/17- Pt. appears to be in fluid overload with HF - new onset AFib with RVR. Significant cardiomegaly on imaging. Denies hx of AFib with RVR. Remains in AFib with RVR intermittently- repeat EKG. Add Tele. Consult cardiology-[facility]. I reviewed [facility] records- no documentation of HF or AFib. No echo or CV notes on file there. Give IV Lasix, Add low dose metoprolol to control rate. Ordered Echo. continue O2 for support. Change to inpatient due to need for further evaluation and tx. Concern for PNA, less likely UTI- may be more due to atelectasis. Continue empiric Ceftriaxone for now, but may be able to DC soon. Replace KCL now and continue BID during diuretics. Metformin on hold due to CTA. Add SSI for now- resume metformin tomorrow if stable. Continue PT for weakness. 01/10/17 Noted increased rate this morning up to the 135. Metoprolol increased to 50 milligrams by mouth twice a day. Rate currently 100. Continue with Eliquis was 2.5 milligrams twice a day for chronic anticoagulation given A-fib Lasix 20 IV BID for diuresis, likely new onset CHF Continue to monitor blood sugars, fasting sugar this morning was 103. Sliding scale insulin. Continues on 3.5 Liters of oxygen to maintain saturations Repeat Chest Xray today. Will repeat CBC and BMP tomorrow to follow blood counts renal function and electrolytes Discuss further plan with attending- Dr Corrigan 01/11/17 Metoprolol increased to 50mg BID for better rate control. Continue on Eliquis BID for anti-coagulation Metformin and sliding scale NovoLog for blood glucose control. Fasting sugar this morning 117. Will work on weaning down oxygen. Encourage work with PT/OT for strengthening. May need some assistance at home at time of discharge as she does live alone BNP remains elevated; echocardiogram demonstrated ejection fraction of 40% with moderate /AI Rate variable, control improving but up to 150 at times (at least briefly) on telemetry. Discussed with Dr. Cruz-metoprolol increased to 75 mg twice a day and Lasix increased to 40 mg twice a day. Weight up over the past 2 days if recorded values accurate. 01/12/17 A-fib - pt converted to NSR early in the morning. Tolerating increased dose of metoprolol (75 mg BID) Acute on chronic systolic CHF with 7 kg weight gain - Continues on higher dose of IV diuresis with Lasix 40 mg IV BID. Hypoxia - sats dropped to 86% on 1.5L during ambulation - will obtain ambulatory oximetry to determine what O2 needs are with activity. Hyperglycemia - she's on metformin 500 mg daily and SSI - metformin was just restarted yesterday. Change accucheck timing to 2-hr postprandial. Last A1c (at [facility]) was on 12/30/16 and was 6.9% (trending up from 6.5%). Discussed with Dr. Corrigan - possible discharge tomorrow. 01/13/17- Discharge Veronika is seen and examined today on day of discharge. She is able to tolerate room air at rest. However, continues to require oxygen at night with sleeping as well as with ambulation. Patient will be sent home on home oxygen. She will continue to have home health to manage her chronic left upper extremity wound as well as help with management of oxygen. She will be discharged home on several new cardiac medications including Eliquis twice a day for chronic anticoagulation. She is also sent home on Lopressor 75 milligrams twice a day, Lasix 40 milligrams twice a day, potassium 40 milliequivalents twice a day, been as a pro 20 milligrams daily. She has a follow-up appointment scheduled with primary care provider, Dr. Ale Andersen on Saturday 01/20. She will also follow with Dr. Arriola on February 10. This is a general summation of the patients hospital course. Please refer to the medical record if additional detail is needed. Total discharge time greater than 35 minutes Problems: (1) Systolic heart failure Status: Acute Assessment & Plan: Echo 01/09/17 Dr. Arriola 1. Global hypokinesia with ejection fraction of about 40%. 2. Concentric left ventricular hypertrophy. 3. Mitral annulus calcification with mild mitral regurgitation. 4. Moderate aortic stenosis with a valve area of 1.2 cm2 with moderate aortic insufficiency. 5. Mild tricuspid regurgitation with normal estimated pulmonary artery systolic pressure of 32. (2) Fluid overload Status: Acute (3) Hypoxia Status: Acute (4) Weakness Status: Acute (5) Hypokalemia Status: Resolved (6) Valvular disease Status: Chronic (7) Atrial fibrillation with RVR Status: Resolved Assessment & Plan: Converted to NSR on 01/12/17 (8) Dehydration Status: Resolved Assessment & Plan: Present on admission (9) Leukocytosis Status: Resolved (10) Chronic wound of extremity Status: Chronic Assessment & Plan: Left elbow (11) HTN (hypertension) Status: Chronic (12) Diabetes mellitus Status: Chronic Code Status Do Not Resuscitate Home Meds Active Scripts Potassium Chloride (Potassium Chloride) 20 Meq Tablet.er, 40 MEQ PO BIDWM for 30 Days, #120 TAB Take 1 tablet, by mouth, two times a day with meals. Prov:CAITIE CARRIZALES APRN 01/13/17 Furosemide (Furosemide) 40 Mg Tablet, 1 TAB PO BID for 30 Days, #60 TAB Prov:CAITIE CARRIZALES APRN 01/13/17 Benazepril HCl (Benazepril HCl) 20 Mg Tablet, 20 MG PO DAILY for 30 Days, #30 TAB Prov:CAITIE CARRIZALES APRN 01/13/17 Metoprolol Tartrate (Lopressor) 50 Mg Tablet, 75 MG PO BIDWM for 30 Days, #90 TAB Prov:CAITIE CARRIZALES APRN 01/13/17 Apixaban (Eliquis) 5 Mg Tablet, 2.5 MG PO BID for 30 Days, #30 TAB Prov:CAITIE CARRIZALES APRN 01/13/17 Reported Medications Aspirin (Aspir 81) 81 Mg Tablet.dr, 81 MG PO DAILY 07/15/16 Calcium Carbonate (Calcium) 600 Mg Tablet, 600 MG PO BID 07/15/16 Magnesium Oxide (Magnesium) 250 Mg Tablet, 250 MG PO DAILY, TAB 07/15/16 Psyllium Seed (with Sugar) (Metamucil Fiber Wafer) 1 Each Wafer, 2 TAB PO DAILY 07/15/16 Niacin (Niacin) 50 Mg Tablet, 50 MG PO TID 07/15/16 Ascorbic Acid (Vitamin C) 1,000 Mg Tablet, 1000 MG PO BID 07/15/16 Cholecalciferol (Vitamin D3) (Vitamin D) 1,000 Unit Capsule, 1000 UNIT PO DAILY 07/15/16 Vitamin E (Dl,Tocopheryl Acet) (Vitamin E) 1,000 Unit Capsule, 1000 UNIT PO Fr@ 0800 07/15/16 Citalopram Hydrobromide (Citalopram HBr) 10 Mg Tablet, 10 MG PO DAILY 07/15/16 Metformin HCl (Metformin HCl) 500 Mg Tablet, 500 MG PO DAILY 07/15/16 Discontinued Reported Medications Amlodipine Besylate/Benazepril (Amlodipine-Benazepril 5-20 mg) 1 Each Capsule, 1 CAP PO DAILY 07/15/16 Discontinued Scripts Hydrocodone/Apap ([place] 5-325 Tablet) 5-325 Tablet, 1 TAB PO HS and PRN for PAIN , #30 TAB 0 Refills Prov:ORLANDO HARDIN MD 07/18/16 Face to Face Encounter I met with patient on the day of dismissal and discussed follow up appointments , medications, and safety plan. Discharge Disposition stable Copies To 1: ALE ALY DO Copies To 2: LANEY ARRIOLA MD, ROBERTA L MD 01/13/17 1710: Hospital Course I have independently evaluated and examined this patient. I reviewed the chart, the patient's history, and the SHUTTLE PREPARATION SUPERVISOR's documented findings as above. We discussed and formulated the assessment and plan as above with additions as below: Mrs. Gonzalez reports feeling well today. Overnight oximetry was reviewed with the patient and demonstrated 1 hour and 41 minutes oxygen saturation below 89% on room air. She desaturated to 85% ambulating on room air yesterday and required 3 L supplemental oxygen to maintain saturation above 90%. She is currently maintaining oxygen saturation of 91-93% on room air while resting. The patient denies dyspnea at rest and has had no palpitations or chest pain. Examination reveals no peripheral edema and regular cardiac rhythm with a 2/6 systolic murmur. Respirations are nonlabored with good airflow. Weight today was 56.7 kg. BNP remains elevated at 3280 but is significantly improved from 9900 on admission. Remains in sinus rhythm. Stable for discharge at this time. Will require supplemental oxygen at home with activities and at night. Ambulating with the walker for stability-prescription provided. Problems: Home Meds Active Scripts Potassium Chloride (Potassium Chloride) 20 Meq Tablet.er, 40 MEQ PO BIDWM for 30 Days, #120 TAB Take 1 tablet, by mouth, two times a day with meals. Prov:CAITIE CARRIZALES V IMELDA 01/13/17 Furosemide (Furosemide) 40 Mg Tablet, 1 TAB PO BID for 30 Days, #60 TAB Prov:CAITIE CARRIZALES V [employer]TLE PREPARATION SUPERVISOR 01/13/17 Benazepril HCl (Benazepril HCl) 20 Mg Tablet, 20 MG PO DAILY for 30 Days, #30 TAB Prov:CAITIE CARRIZALES V [employer]TLE PREPARATION SUPERVISOR 01/13/17 Metoprolol Tartrate (Lopressor) 50 Mg Tablet, 75 MG PO BIDWM for 30 Days, #90 TAB Prov:CAITIE CARRIZALES V [employer]TLE PREPARATION SUPERVISOR 01/13/17 Apixaban (Eliquis) 5 Mg Tablet, 2.5 MG PO BID for 30 Days, #30 TAB Prov:CAITIE CARRIZALES V IMELDA 01/13/17 Reported Medications Aspirin (Aspir 81) 81 Mg Tablet.dr, 81 MG PO DAILY 07/15/16 Calcium Carbonate (Calcium) 600 Mg Tablet, 600 MG PO BID 07/15/16 Magnesium Oxide (Magnesium) 250 Mg Tablet, 250 MG PO DAILY, TAB 07/15/16 Psyllium Seed (with Sugar) (Metamucil Fiber Wafer) 1 Each Wafer, 2 TAB PO DAILY 07/15/16 Niacin (Niacin) 50 Mg Tablet, 50 MG PO TID 07/15/16 Ascorbic Acid (Vitamin C) 1,000 Mg Tablet, 1000 MG PO BID 07/15/16 Cholecalciferol (Vitamin D3) (Vitamin D) 1,000 Unit Capsule, 1000 UNIT PO DAILY 07/15/16 Vitamin E (Dl,Tocopheryl Acet) (Vitamin E) 1,000 Unit Capsule, 1000 UNIT PO Fr@ 0800 07/15/16 Citalopram Hydrobromide (Citalopram HBr) 10 Mg Tablet, 10 MG PO DAILY 07/15/16 Metformin HCl (Metformin HCl) 500 Mg Tablet, 500 MG PO DAILY 07/15/16 Discontinued Reported Medications Amlodipine Besylate/Benazepril (Amlodipine-Benazepril 5-20 mg) 1 Each Capsule, 1 CAP PO DAILY 07/15/16 Discontinued Scripts Hydrocodone/Apap ([place] 5-325 Tablet) 5-325 Tablet, 1 TAB PO HS and PRN for PAIN , #30 TAB 0 Refills Prov:ORLANDO HARDIN MD 10/22/16 Copies To 1: ALE ALY DO Copies To 2: LANEY ARRIOLA MD Documentation Requirements CHF Type and Acuity Type of CHF: Systolic Acuity CHF: Acute CAITIE CARRIZALES APRN Jan 13, 2017 15:53 DIANE CORRIGAN MD Jan 13, 2017 17:10
--- NOTE | 2017-01-14 15:53 | NUR ---
CM UNABLE TO LVM
--- NOTE | 2017-01-15 15:22 | NUR ---
CM UNABLE TO LEAVE VM
== END 2017-01-13 14:30 | disposition home health service (06) | DRG 293 ==
LOC: ED 10:50 → EDHOLD 14:46 → MED 15:30 → OBSVTOIN 01-09 11:39
PROVIDERS: ADMIT Hospitalist; ATTEND Internal Medicine
DX: I50.23 Acute on chronic systolic (congestive) heart failure (principal); E86.0 Dehydration; R53.1 Weakness; I48.91 Unspecified atrial fibrillation; R09.02 Hypoxemia; S51.002D Unspecified open wound of left elbow, subsequent encounter; I11.9 Hypertensive heart disease without heart failure; E11.9 Type 2 diabetes mellitus without complications; E87.6 Hypokalemia; D72.829 Elevated white blood cell count, unspecified; I51.7 Cardiomegaly; X58.XXXD Exposure to other specified factors, subsequent encounter; Z66 Do not resuscitate; Z79.82 Long term (current) use of aspirin; E87.70 Fluid overload, unspecified
CPT/HCPCS: 36415; 51701; 80048; 80053; 81001; 82948; 83735; 83880; 84443; 84484; 85025; 93005; 93306; 94761; 94762; 96361; 96365; 96372; 99218

== ENCOUNTER 2017-01-16 01:13 | Inpatient (IN) | payer MEDICARE, OTHER ==
[2017-01-16] VITALS (12 sets, daily range): BP systolic 100–120; BP diastolic 57–71; PULSE 82–91; RESP 16–18; TEMP 96–97.6; O2SAT 92–100; Ht 165.1 cm; Wt 57.8 kg
[~2017-01-16] VITALS: Ht 165.1 cm; Wt 57.8 kg
[~2017-01-16 01:13] MED LIST changes: -AMLO1CAP12 PO; +APIX5TAB PO; +BENA20TA3 PO; -CYAN10009 PO; +FURO40TA5 PO; -HYDR-3989 PO; +METO-482 PO; +POTA-81 PO; -SULF1TAB3 PO
--- NOTE | 2017-01-16 01:15 | NUR ---
O2 O2 ON AT 4L/NC PT USES O2 CONTINUALLY AT HOME SAO2 88% ON ROOM AIR
--- OUTSIDE RECORDS SUMMARY | 2017-01-16 01:18 | XMS REPORT | Continuity of Care Document ---
Author Author [facility] Organization [facility] Address Unknown Phone Unavailable Support Name Relationship Address Phone RADHA ESCOBAR MD Caregiver [address] [place] [address] [place] [address] Unavailable WILLI GOMEZ MD Caregiver [address] [place] [phone] Unavailable BRETT PHELPS DO Caregiver [address] [place] [id number] Unavailable ALE ALY DO Caregiver Unknown Unavailable LUIS ANTONIO BEE Next Of Kin Unknown [phone] Insurance Providers Guarantor Jami Bee Address [address] [place] [phone] Email DENIED 17 Payer Medicare Policy Number [id number] Subscriber's Name Jami Bee Relationship 18 Self Effective Date 93 Payer [facility] Policy Number [id number] Subscriber's Name Jami Bee Relationship 18 Self Group Number [id number] Advance Directives Directive Response Recorded Date/Time Advanced Directives Type DNR Documentation Living Will DPOA for Healthcare 01/08/17 10:52am Dr Felix Resuscitation Status Do Not Resuscitate 01/08/17 2:48pm Resuscitation Documents on File No 01/08/17 3:48pm DPOA for Healthcare Only No 01/09/17 3:32pm Living Will No 01/08/17 3:48pm Problems Active Problems Medical Problem Onset Date Status Atrial fibrillation with RVR Unknown Resolved CHF with unknown LVEF Unknown Acute Cardiomegaly Unknown Chronic Chronic wound of extremity Unknown Chronic Diabetes mellitus Unknown Chronic Fluid overload Unknown Acute Fracture of left olecranon process Unknown Acute HTN (hypertension) Unknown Chronic Hypokalemia Unknown Resolved Hypoxia Unknown Acute Leukocytosis Unknown Resolved Systolic heart failure Unknown Acute Urinary tract infection Unknown Resolved Valvular disease Unknown Chronic Weakness Unknown Acute Wound dehiscence Unknown Acute Past Problems Medical Problem Onset Date Dehydration Unknown Medications Current Home Medications Medication Dose Units Route Directions Days Qty Instructions Start Date Apixaban (Eliquis) 5 Mg Tablet 2.5 Mg Oral Twice A Day 30 Days 30 Tablet 01/13/17 Ascorbic Acid (Vitamin C) 1,000 Mg Tablet 1,000 Mg Oral Twice A Day 07/15/16 Aspirin (Aspir 81) 81 Mg Tablet.dr 81 Mg Oral Daily 07/15/16 Benazepril Hcl 20 Mg Tablet 20 Mg Oral Daily 30 Days 30 Tablet Calcium Carbonate (Calcium) 600 Mg Tablet 600 Mg Oral Twice A Day 07/15/16 Cholecalciferol (Vitamin D3) (Vitamin D) 1,000 Unit Capsule 1,000 Unit Oral Daily 07/15/16 Citalopram Hydrobromide (Citalopram Hbr) 10 Mg Tablet 10 Mg Oral Daily 07/15/16 Furosemide 40 Mg Tablet 1 Tab Oral Twice A Day 30 Days 60 Tablet Magnesium Oxide (Magnesium) 250 Mg Tablet 250 Mg Oral Daily 07/15 Metformin Hcl 500 Mg Tablet 500 Mg Oral Daily 07/15/16 Metoprolol Tartrate (Lopressor) 50 Mg Tablet 75 Mg Oral Twice Daily With Meals 30 Days 90 Tablet 01/13/17 Niacin 50 Mg Tablet 50 Mg Oral Three Times A Day 07/15/16 Potassium Chloride 20 Meq Tablet.er 40 Meq Oral Twice Daily With Meals 30 Days 120 Tablet Take 1 tablet, by mouth, two times a day with meals. 01/13/17 Psyllium Seed (With Sugar) (Metamucil Fiber Wafer) 1 Each Wafer 2 Tab Oral Daily 07/15/16 Vitamin E (Dl,Tocopheryl Acet) (Vitamin E) 1,000 Unit Capsule 1,000 Unit Oral Every Wednesday At 8:00AM 07/15/16 Past Home Medications Medication Directions Ordered Status Acetaminophen/Hydrocodone Bitart (Coats 5-325 Tablet) 5-325 Tablet, 1 Tab Oral Hs And Prn for Pain 07/18/16 Discontinued Acetaminophen/Hydrocodone Bitart (Coats 5-325 Tablet) 5-325 Tablet, 1 Tab Oral Hs And Prn for Pain 07/15/16 Discontinued Amlodipine Besylate/Benazepril (Amlodipine-Benazepril 5-20 Mg) 1 Each Capsule, 1 Cap Oral Daily 07/15/16 Discontinued Social History Social History Problem Response Recorded Date/Time Onset Date Status Reason for Hospitalization Dyspnea, Hypoxia 01/13/2017 12:22pm Not Applicable Not Applicable Hx Substance Use No 01/08/2017 11:10am Not Applicable Not Applicable Hx Alcohol Use No 01/08/2017 11:10am Not Applicable Not Applicable Has the pt used tobacco in the last 12 months No 01/08/2017 3:50pm Not Applicable Not Applicable Query Response Start Date Stop Date Smoking Status Never smoker Hospital Discharge Instructions Instructions: Care Instructions: Reason for Hospitalization: Dyspnea, Hypoxia I was in the hospital because (patient own words): COULDN'T GET OUT OF CHAIR THIS MORNING Discharge Diet: 1800 CC diet Discharge Activity: activity as tolerated Follow Up Appointments: Follow-up with Dr. Aly on January 20 at 10:20am Follow-up with dr. Shelby on February 10 at 10:40am Pending Lab / Results: No Pending Lab Patient Instructions: Use home oxygen at 2 liters with activity and at night. You are now taking Eliquis blood thinner twice a day Wound/Incision Care: N/A Pain Management/Treatment: Tylenol as needed for pain Expected Signs/Symptoms: Continued improvemenet in shortness of air and weakness Notify Physician If: Fever, Chills, Severe shortness of breath, chest pain or other concerning symptoms During Business Hours:: Please call the physician's office After Business Hours:: Please call [phone] and have the sandfill operator surface page the physician. Condition at time of discharge: Good Plan of Care Discharge Date 01/13/17 2:30pm Disposition 06 HOME HEALTH SERVICE Instructions/Education Provided Dehydration (DC) Weakness (GEN) Prescriptions See Medication Section Additional Instructions/Education [facility] OXYGEN Care Plan and Goals See Discharge Instructions Section Functional Status Query Response Date Recorded Mobility Status Ambulatory w/assist January 13, 2017 12:22pm Assistive Devices Cane January 13, 2017 12:22pm Activity Limitations Fatigue January 13, 2017 12:22pm Feeding Ability Independent January 13, 2017 12:22pm Toileting Ability Independent January 13, 2017 12:22pm Grooming Ability Independent January 13, 2017 12:22pm Dressing Ability Independent January 13, 2017 12:22pm Driving Ability Independent January 13, 2017 12:22pm Housework Ability Independent January 13, 2017 12:22pm Meal Preparation Ability Independent January 13, 2017 12:22pm Stair Climbing Ability Independent January 13, 2017 12:22pm Ability to complete ADL's impeded by No change January 13, 2017 12:22pm Cognitive/Perceptual Impairments Impaired vision Impaired hearing January 13, 2017 12:22pm Visual Assistive Devices Glasses January 11, 2017 3:26pm Preferred Method of Learning Reading January 11, 2017 3:26pm Allergies, Adverse Reactions, Alerts Allergen Type Severity Reaction Status Last Updated No Known Drug Allergies Allergy Unknown Active 01/08/17 Immunizations Query Response on File Recorded Date/Time Hx Influenza Vaccination No 01/08/17 3:50pm Hx Pneumococcal Vaccination Y 10-09-15 01/08/17 3:50pm Hx Influenza Vaccination No 01/08/17 3:50pm Vital Signs Acute Vital Signs Vital Response Date/Time Temperature (Fahrenheit) 96.9 deg F (96.8 - 99.1) 01/13/2017 1:45pm Temperature (Calculated Celsius) 36.43359 degrees C (36.0 - 37.3) 01/13/2017 1:45pm Pulse Rate (adult) 78 bpm (60 - 100) 01/13/2017 1:45pm Respiratory Rate 16 breaths/min (10 - 20) 01/13/2017 1:45pm O2 Sat by Pulse Oximetry 91 % (90 - 100) 01/13/2017 1:45pm Oxygen Delivery Method Nasal Cannula 01/13/2017 3:00am Oxygen Delivery Method Room Air 01/13/2017 1:45pm Oxygen Flow Rate 0.50 L/min 01/13/2017 7:45am Blood Pressure 110/58 mm Hg 01/13/2017 1:45pm Blood Pressure Source Automatic Cuff 01/13/2017 1:45pm Height (Feet) 5 feet 01/12/2017 11:51am Height (Inches) 5.00 inches 01/12/2017 11:51am Weight (Kilograms) 56.700 kg 01/13/2017 7:44am Body Mass Index (BMI) 19.1 01/08/2017 3:47pm Results Laboratory Results Test Name Result Units Flags Reference Collection Date/Time Result Date/ Time Comments White Blood Count 7.4 T/MM3 4.5-11.0 01/11/2017 5:11am 01/11/2017 5: 48am Red Blood Count 4.14 M/MM3 4.00-5.20 01/11/2017 5:01/11/2017 5: 48am Hemoglobin 12.4 GM/DL 12-16 01/11/2017 5:01/11/2017 5:48am Hematocrit 38.3 % 36-46 01/11/2017 5:01/11/2017 5:48am Mean Corpuscular Volume 92.5 UM3 80-100 01/11/2017 5:01/11/2017 5: 48am Mean Corpuscular Hemoglobin 30.0 UUG 26-34 01/11/2017 5:2016 5:48am Mean Corpuscular Hemoglobin Concent 32.4 GM/DL 31-37 01/11/2017 5:01/11/2017 5:48am RDW Standard Deviation 51.4 FL H 36.9-50.2 01/11/2017 5:01/11/2017 5:48am Platelet Count 191 T/MM3 130-400 01/11/2017 5:01/11/2017 5:48am Mean Platelet Volume 11.2 UM3 9.4-12.4 01/11/2017 5:01/11/2017 5: 48am Neutrophils (%) (Auto) 64.8 % 33-66 01/11/2017 5:01/11/2017 5: 48am Lymphocytes (%) (Auto) 19.5 % L 23-45 01/11/2017 5:01/11/2017 5: 48am Monocytes (%) (Auto) 11.7 % H 0-9.0 01/11/2017 5:01/11/2017 5:48am Eosinophils (%) (Auto) 3.1 % 0-4 01/11/2017 5:01/11/2017 5:48am Basophils (%) (Auto) 0.4 % 0-2 01/11/2017 5:01/11/2017 5:48am Immature Granulocyte % (Auto) 0.5 % 0.0-0.5 01/11/2017 5:2016 5:48am Absolute Neutrophils (auto) 4.8 T/MM3 1.8-7.7 01/11/2017 5:2016 5:48am Absolute Lymphocytes (auto) 1.5 T/MM3 1-4.8 01/11/2017 5:11am 2016 5:48am Absolute Monocytes (auto) 0.9 T/MM3 H 0-0.8 01/11/2017 5:11am 2016 5:48am Absolute Eosinophils (auto) 0.2 T/MM3 0-0.5 01/11/2017 5:2016 5:48am Absolute Basophils (auto) 0.0 T/MM3 0-0.2 01/11/2017 5:11a01/11/2017 5:48am Absolute Immature Granulocyte (auto 0.04 T/MM3 H 0.00-0.03 01/11/2017 5: 11a01/11/2017 5:48am Neutrophils % (Manual) 90.0 % H 33-66 01/08/2017 11:53am 01/08/2017 12: 15pm Band Neutrophils % 2.0 % 0-6 01/08/2017 11:53am 01/08/2017 12:15pm Lymphocytes % (Manual) 3.0 % L 23-45 01/08/2017 11:53am 01/08/2017 12: 15pm Monocytes % (Manual) 5.0 % 0-9.0 01/08/2017 11:53am 01/08/2017 12:15pm Band Neutrophils # 0.2 T/MM3 01/08/2017 11:53am 01/08/2017 12:15pm Absolute Neutrophils (Manual) 10.4 T/MM3 H 1.8-7.7 01/08/2017 11:53am 12:15pm Lymphocytes # (Manual) 0.3 T/MM3 L 1-4.8 01/08/2017 11:53am 01/08/2017 12:15pm Monocytes # (Manual) 0.6 T/MM3 0-0.8 01/08/2017 11:53am 01/08/2017 12: 15pm Red Cell Morphology Comment NORMAL 01/08/2017 11:53am 01/08/2017 12 :15pm Icterus Index < 2 0-7 01/13/2017 5:17am 01/13/2017 6:26am Chemistry Specimen Hemolysis < 15 0-25 01/13/2017 5:17am 01/13/2017 6 :26am 0-25: Specimen Exhibited No Hemolysis. Turbidity < 20 0-20 01/13/2017 5:01/13/2017 6:26am Sodium Level 140 MEQ/L 134-144 01/13/2017 5:01/13/2017 6:26am Potassium Level 4.7 MEQ/L 3.6-5 01/13/2017 5:01/13/2017 6:26am Chloride Level 96 MEQ/L L 98-107 01/13/2017 5:01/13/2017 6:26am Carbon Dioxide Level 35 MEQ/L H 22-30 01/13/2017 5:01/13/2017 6: 26am Anion Gap 9 MEQ/L 5-01/13/2017 5:01/13/2017 6:26am Blood Urea Nitrogen 26.0 MG/DL H 7-01/13/2017 5:01/13/2017 6: 26am Creatinine 0.7 MG/DL 0.7-1.2 01/13/2017 5:01/13/2017 6:26am BUN/Creatinine Ratio 37 RATIO H 6-01/13/2017 5:01/13/2017 6: 26am Glomerular Filtration Rate Calc 79 01/13/2017 5:01/13/2017 6: 26am Glucose Level 120 MG/DL H 65-110 01/13/2017 5:01/13/2017 6:26am Calculated Osmolality 275 MOSM/KG 261-280 01/13/2017 5:01/13/2017 6:26am Calcium Level 8.6 MG/DL 8.4-10.2 01/13/2017 5:01/13/2017 6:26am Total Bilirubin 1.30 MG/DL 0.20-1.30 01/09/2017 5:0001/09/2017 5: 57am Alkaline Phosphatase 116 U/L 38-126 01/09/2017 5:0001/09/2017 5: 57am Total Protein 5.9 G/DL L 6.3-8.2 01/09/2017 5:0001/09/2017 5:57am Albumin 2.9 G/DL L 3.5-5.0 01/09/2017 5:0001/09/2017 5:57am Globulin 3.0 G/DL 2.4-3.6 01/09/2017 5:00am 01/09/2017 5:57am Albumin/Globulin Ratio 1.0 RATIO L 1.1-2.2 01/09/2017 5:00am 01/09/2017 5:57am Aspartate Amino Transf (AST/SGOT) 54 U/L H 14-36 01/09/2017 5:00am 01/09 5:57am Alanine Aminotransferase (ALT/SGPT) 46 U/L 9-52 01/09/2017 5:00am 01/09 5:57am Troponin I 0.037 ng/ml 0-0.12 01/08/2017 11:53am 01/08/2017 12:23pm Troponin values with a difference of 55% increase from orginal troponin value represent a true biological DELTA value. (%increase Calc=Orginal Troponin value, divided by subsequent Troponin value, multiplied by 100) NK-Dvw-X-Type Natriuretic Peptide 3280 PG/ML H 0-175 01/13/2017 5:17am 01/13/2017 8:55am Rule in cut points: <50 years old=450; 50-75 years old=900; >75 years old=1800; When utilizing ProBNP rule-in cut points, adjustment for impaired renal function is typically not required. Magnesium Level 1.9 MG/DL 1.6-2.3 01/13/2017 5:17am 01/13/2017 6:26am Thyroid Stimulating Hormone (TSH) 1.27 MIU/L 0.47-4.68 01/08/2017 11: 53am 01/08/2017 4:52pm Urine Collection Type STRAIGHT CATH 01/08/2017 12:16pm 01/08/2017 12:23pm Urine Color YELLOW YELLOW 01/08/2017 12:16pm 01/08/2017 12:23pm Urine Turbidity SL CLOUDY CLEAR 01/08/2017 12:16pm 01/08/2017 12: 23pm Urine Specific [place] 1.025 1.015-1.025 01/08/2017 12:16pm 2016 12:23pm Urine pH 5.0 5.0-8.0 01/08/2017 12:16pm 01/08/2017 12:23pm Urine Leukocyte Esterase NEGATIVE NEGATIVE 01/08/2017 12:16pm 2016 12:23pm Urine Nitrite NEGATIVE NEGATIVE 01/08/2017 12:16pm 01/08/2017 12: 23pm Urine Protein 2+ A NEGATIVE 01/08/2017 12:16pm 01/08/2017 12:23pm Urine Glucose (UA) NEGATIVE NEGATIVE 01/08/2017 12:16pm 01/08/2017 12 :23pm Urine Ketones TRACE A NEGATIVE 01/08/2017 12:16pm 01/08/2017 12:23pm Urine Urobilinogen 0.2 EU/DL NORMAL 01/08/2017 12:16pm 01/08/2017 12: 23pm Urine Bilirubin NEGATIVE NEGATIVE 01/08/2017 12:16pm 01/08/2017 12: 23pm Urine Blood 3+ A NEGATIVE 01/08/2017 12:16pm 01/08/2017 12:23pm Urine WBC NONE SEEN /HPF 0-5 01/08/2017 12:16pm 01/08/2017 12:33pm Urine RBC 1-3 /HPF 0-3 01/08/2017 12:16pm 01/08/2017 12:33pm Urine Squamous Epithelial Cells NONE SEEN 01/08/2017 12:16pm 2016 12:33pm Urine Transitional Epithelial Cells 0-1 /HPF 01/08/2017 12:16pm 01/08 12:33pm Urine Bacteria 2+ H NEGATIVE 01/08/2017 12:16pm 01/08/2017 12:33pm Urine Amorphous Urates MANY 01/08/2017 12:16pm 01/08/2017 12:33pm Urine Fine Granular Casts 0-1 /LPF 01/08/2017 12:16pm 01/08/2017 12: 33pm Urine Coarse Granular Casts 0-1 /LPF 01/08/2017 12:16pm 01/08/2017 12 :33pm Urine Culture Indicated CULT NOT INDICATED 01/08/2017 12:16pm 01/08 12:33pm Glucometer 136 mg/dL H 65-110 01/13/2017 1:55pm 01/13/2017 1:59pm Microbiology Results Procedure Source Organism/Result Collection Date/Time Result Date/Time Result Status WOUND CULTURE DEEP TISS-AER/AN Elbow, Left DIPHTHEROID BACILLUS 12/17/2016 11:55am 12/20/2016 2:16pm Final STAPHYLOCOCCUS AUREUS 12/17/2016 11:55am 12/20/2016 2:16pm Final Name: JAMI BEE Unit #: [id number] : 1930 Sex: F Admit Date: 01/09/17 Loc / Svc: MED Discharge Date: DIAGNOSTIC IMAGING REPORT Report #: [id number] [facility] SERGEI Olsen INDICATION: ITS.REASON: CHF PROCEDURE: CHEST 2-VIEWS UPRIGHT (PA \\T\\ LAT) Encounter: Initial COMPARISON: January 10, 2017 FINDINGS: Small bilateral pleural effusions are unchanged with slightly improved aeration of the lower lobes. Upper lung morrison are grossly clear. No pneumothorax or definite new infiltrate. Heart size and mediastinal contours are stable. Pulmonary vascularity is slightly less congested. Impression: Slight improvement in pulmonary edema with similar small pleural effusions. . Procedures Procedure Status Date Provider(s) Neg press wound tx </=50 cm Completed 10/21/16 943443"COLLAGEN DRESSING, PAD SIZE 16 SQ. IN. OR LESS, EACH" Completed Rmvl devital tis 20 cm/< Completed 11/04/16 [id number]"COLLAGEN DRESSING, PAD SIZE 16 SQ. IN. OR LESS, EACH" Completed 149270"BORDER, EACH DRESSING" Completed 11/04/16 [id number]"BORDER, EACH DRESSING" Completed 11/19/16 E&M LEVEL - FACILITY Completed 11/19/16 Mari subq tissue 20 sq cm/< Completed 12/03/16 [id number]"COLLAGEN DRESSING, PAD SIZE 16 SQ. IN. OR LESS, EACH" Completed 747292"EQUAL TO 48 SQ. IN., WITHOUT ADHESIVE BORDER, EACH DR Completed 004"ADHESIVE BORDER, EACH DRESSING" Completed 12/03/16 Mari subq tissue 20 sq cm/< Completed 12/17/16 Culture othr specimn aerobic Completed 12/17/16 Cultr bacteria except blood Completed 12/17/16 Culture type immunologic Completed 12/17/16 Microbe susceptible brennan Completed 12/17/16 Smear gram stain Completed 12/17/16 [id number]"COLLAGEN DRESSING, PAD SIZE 16 SQ. IN. OR LESS, EACH" Completed [id number]"BORDER, EACH DRESSING" Completed 12/17/16 Encounters Encounter Location Arrival/Admit Date Discharge/Depart Date Attending Provider Discharged Inpatient [facility] 01/09/17 11:39am 01/13/17 2:30pm WILLI GOMEZ MD Registered [facility] 12/31/16 1:30pm MAUREEN ANDREWS MD Registered [facility] 12/17/16 11:23am MAUREEN ANDREWS MD Registered [facility] 12/03/16 2:06pm MAUREEN ANDREWS MD Registered [facility] 11/19/16 1:56pm MAUREEN ANDREWS MD Registered [facility] 11/04/16 1:25pm MAUREEN ANDREWS MD Registered [facility] 10/21/16 1:25pm MAUREEN ANDREWS MD
--- OUTSIDE RECORDS SUMMARY | 2017-01-16 01:18 | XMS REPORT | Continuity of Care Document ---
Author Author [facility] Organization [facility] Address Unknown Phone Unavailable Allergies Medications Problems Procedures Results Encounters ACCT No. Visit Date/Time Discharge Status Pt. Type Provider Facility Loc./Unit Complaint [id number] 11/13/2013 13:31:00 11/13/2013 23 :59:59 CLS Outpatient
--- NOTE | 2017-01-16 01:30 | NUR ---
NEURO PT IS ALERT AND TALKATIVE WITH STAFF ORIENTED AND VERY SOCIAL
--- NOTE | 2017-01-16 01:40 | NUR ---
FAMILY PT SON AND [id number] AT BEDSIDE
--- OUTSIDE RECORDS SUMMARY | 2017-01-16 01:51 | XMS REPORT | Continuity of Care Document ---
Author Author [facility] Organization [facility] Address Unknown Phone Unavailable Allergies Medications Problems Procedures Results Encounters ACCT No. Visit Date/Time Discharge Status Pt. Type Provider Facility Loc./Unit Complaint [id number] 11/13/2013 13:31:00 11/13/2013 23 :59:59 CLS Outpatient
[2017-01-16] MEDS ORDERED: ORPHENADRINE 60mg/2ml INJECTION IV ONE ×2 (02:00→02:15)
--- NOTE | 2017-01-16 02:09 | ERPDOC ---
Departure Disposition Decision Date: Jan 16, 2017 Disposition Decision Time: : Disposition: 02 TO [facility] Impression Impression Impression: Primary Impression: Fall Encounter type: initial encounter Qualified Codes: W19.XXXA - Unspecified fall, initial encounter Additional Impressions: Dehydration Weakness of both legs Severity: Moderate Condition: Improved Seen By: Physician only Referrals: ALE SHIELDS DO (Family) Problems/Meds/Labs Reviewed?: Yes Medications reviewed and manag: Yes Follow up care ordered?: Yes Mental Status: Alert, Oriented Scripts Furosemide (Furosemide) 20 Mg Tablet 20 MG PO DAILY for CHF , #30 TAB Prov: RADHA ESCOBAR MD 01/18/17 Metoprolol Tartrate (Lopressor) 50 Mg Tablet 50 MG PO BIDWM, #60 TAB Prov: RADHA ESCOBAR MD 01/18/17 Digoxin (Lanoxin) 125 Mcg Tablet 125 MCG PO DAILY for Afib, #30 TAB Prov: RADHA ESCOBAR MD 01/18/17 Benazepril HCl (Benazepril HCl) 10 Mg Tablet 10 MG PO HS for CHF, #30 TAB Prov: RADHA ESCOBAR MD 01/18/17 HPI - Fall/Injury General Chief Complaint: Weakness/Neuro Symptoms Stated Complaint: FALL Time Seen by Provider: 01:41 Source: patient, RN/MD, EMS Exam Limitations: no limitations HPI - Fall/Injury Initial Comments 86yo woman presented to the ER for evaluation following a fall yesterday afternoon. Pt fell while getting off of her toilet - states that she misstepped and tripped. Pt then alternated between sitting and lying for an indeterminate period of time. Pt was found by her family; home health nurse determined that the pt should be evaluated. When EMS came, pt walked 10-15 feet to their cot. Pt could crawl, but did not think to crawl to a phone. Now c/o some mid-back pain. Occurred At: home Onset: Rapid Duration: 6-12 hrs Pain Scale: Now & Worst: 3/10 Severity: mild Injuries/Pain Location: back 1 - Ecchymosis and TTP Context: tripped Loss of Consciousness: no loss of consciousness Modifying Factors: IMPROVES WITH: immobilization, pain medication, WORSE WITH: jarring, movement Associated Symptoms: muscle spasms Hx of Similar Symptoms: No Allergies: Coded Allergies: NKDA (Verified Allergy, Unknown, 01/16/17) Past History Patient Surgical History Vaginal Hysterectomy Parathyroidectomy ORIF of left elbow Past Medical History Metabolic: cancer, diabetes, hypertension, other Respiratory: pneumonia Integumentary: other Surgical History Denies Surgeries General: other Reproductive/: hysterectomy Joint: elbow Family History Family PMH: FOUND: CAD, cancer Vaccines Hx Influenza Vaccination: No Hx Pneumococcal Vaccination: Yes (10-09-15) Social History Does patient use chewing tobac: No Second Hand Exposure: No Substance Use Type: does not use Alcohol Intake: none Marital Status: Single Housing: apartment Current Occupational Status: retired Review of Systems Musculoskeletal General: pain All other Systems All Other Systems: Reviewed and Negative Physical Exam General General Nourishment: well nourished, well developed, appears stated age, no acute distress, adult, cachectic General Body Habitus: well groomed Vitals and Pain First Documented Vital Signs Date Time Temp Pulse Resp B/P Pulse Ox O2 Delivery O2 Flow Rate FiO2 01/16/17 01:13 98.2 89 18 102/56 88 Room Air 01/16/17 01:15 4.00 Weight: Kilograms: Height (feet): 5 Height (inches): 5.00 Triage Pain Scale: RN VS reviewed by Provider: Yes Respiratory (brief) Respiratory: FOUND: clear all morrison, equal bilaterally, symmetrical, NOT FOUND : rales, wheezes Cardiovascular (brief) Cardiac: FOUND: regular rate, regular rhythm, NOT FOUND: click, gallop, murmur , pedal edema, peripheral edema, rub Capillary Refill: <2 sec Pulses: all distal extremities, equal, strong Integumentary (brief) Integumentary Brief: FOUND: pink, warm Comments ecchymosis over T12/L1 spinous processes; old ecchymoses along right arm/elbow Supervisory Exam Head: atraumatic Eyes: PERRL Nares: no exudate Neck: trachea midline Chest: symmetric Abdomen: non-distended Musculoskeletal: no deformity or atrophy Neurological: no abnormal movements Psychological: alert, appropriate Differential Diagnoses Considering: Abrasion, Concussion, Contusion, Orthostatic Changes, Sprain, Strain, Vasovagal Progress Results/Orders Orders Procedure Category Date Status Time Hemagram - Cbc No Diff LAB 01/16/17 Complete Bmp - Basic Metabolic LAB 4/22/17 Complete Panel Thoracic Spine RAD 01/16/17 Resulted Series, 3 View Lumbar Spine 2-3 Views RAD 01/16/17 Resulted 01:47 Orphenadrine (Norflex) PHA 01/16/17 Complete 02:15 Ua, Dip Wreflex LAB 01/16/17 Complete [employer] 02:32 Compression Type Scd/ DK 01/16/17 Complete Doroteo Hose 04:10 Cbc W/Auto LAB 01/17/17 Complete Diff-Reflex Manual 04:00 Cmp - Comprehensive LAB 01/17/17 Complete Metabolic 04:00 Manage Oxygen DK 01/16/17 Complete Administration 04:10 Oxygen, Continuous RT 01/16/17 Logged 04:10 [address] In Facility: ED ADM 01/16/17 Transmitted Apixaban (Eliquis) PHA 01/16/17 Complete 09:00 Aspirin *Ec* (Ecotrin) PHA 01/16/17 Complete 09:00 Metoprolol Tartrate PHA 01/16/17 Complete (Lopressor) 08:00 Lab Results Laboratory Tests Test 01/16/17 02:15 White Blood Count 15.6T/MM3 Red Blood Count 3.95M/MM3 Hemoglobin 11.9GM/DL Hematocrit 36.7% Mean Corpuscular Volume 92.9UM3 Mean Corpuscular Hemoglobin 30.1UUG Mean Corpuscular Hemoglobin Concent 32.4GM/DL RDW Standard Deviation 49.4FL Platelet Count 269T/MM3 Mean Platelet Volume 9.8UM3 Turbidity < 20 Sodium Level 140MEQ/L Potassium Level 4.4MEQ/L Chloride Level 94MEQ/L Carbon Dioxide Level 36MEQ/L Anion Gap 10MEQ/L Blood Urea Nitrogen 46.0MG/DL Creatinine 1.0MG/DL Glomerular Filtration Rate Calc 52 BUN/Creatinine Ratio 46RATIO Glucose Level 255MG/DL Calculated Osmolality 290MOSM/KG Calcium Level 9.9MG/DL Icterus Index < 2 Total Creatine Kinase 297U/L Chemistry Specimen Hemolysis < 15 Medications Current ED Medications Orphenadrine Citrate (Norflex) 60 mg O ONCE IV ; Start 01/16/17 at 02:00; Stop 01/16/17 at 02:01; Status Cancel Orphenadrine Citrate (Norflex) 30 mg O ONCE IV Last administered on 01/16/17t 03:09; Start 01/16/17 at 02:15; Stop 01/16/17 at 02:16; Status DC Consult/PCP Consult/PCP : Physician Contacted: Glenn Lazaro Time Called: 04:04 Type of discussion: Admit Discussion/PCP Xray Xray #1: Xray: L-Spine Interpretation: Abnormal (Scoliotic), Interpreted by Me Xray #2: Xray: T-Spine Interpretation: Abnormal (Exaggerated kyphosis; double major scoliosis), Interpreted by GENARO Kowalski DO Jan 16, 2017 02:09
--- NOTE | 2017-01-16 02:15 | NUR ---
LAB LAB AT BEDSIDE FOR BLOOD DRAW PT GIANA VICTORIA
--- NOTE | 2017-01-16 02:20 | NUR ---
XRAY PT TAKEN TO XRAY PER CART
[2017-01-16 02:23] LABS: HCT - HEMATOCRIT 36.7 % (36-46); HGB - HEMOGLOBIN 11.9 GM/DL (12-16); MEAN CORPUSCULAR HGB 30.1 UUG (26-34); MEAN CORPUSCULAR HGB CONC(MCHC 32.4 GM/DL (31-37); MEAN CORPUSCULAR VOLUME 92.9 UM3 (80-100); MEAN PLATELET VOLUME 9.8 UM3 (9.4-12.4); RED BLOOD COUNT 3.95 M/MM3 (4.00-5.20); WBC - WHITE BLOOD COUNT 15.6 T/MM3 (4.5-11.0)
[2017-01-16 02:30] LABS: ANION GAP 10 MEQ/L (5-15); BUN/CREATININE RATIO 46 RATIO (6-26); CALCIUM 9.9 MG/DL (8.4-10.2); CHLORIDE 94 MEQ/L (98-107); CO2 - CARBON DIOXIDE 36 MEQ/L (22-30); GLOMERULAR FILTRATION RATE 52; GLUCOSE 255 MG/DL (65-110); POTASSIUM 4.4 MEQ/L (3.6-5); SODIUM 140 MEQ/L (134-144)
--- NOTE | 2017-01-16 02:45 | NUR ---
ROOM PT RETURNED TO ROOM 1 PER CART FROM JIMENA WILLARD AT BEDSIDE
--- NOTE | 2017-01-16 03:09 | NUR ---
NORFLEX IV NORFLEX GIVEN FOR BACK DISCOMFORT
[2017-01-16] MEDS ORDERED: CYAN1TAB46 PO (03:29)
[2017-01-16] MEDS ORDERED: POTA10TA16 PO (03:29)
[2017-01-16] MEDS ORDERED: LEVO500T88 PO (03:29)
--- NOTE | 2017-01-16 03:44 | NUR ---
STATUS PT IS RESTING WELL WITH EYES CLOSED AROUSES TO VERBAL STIMULI STATES HER BACK PAIN IS GONE PY HAS BEEN INCONTINENT OF URINE FAMILY REMAINS AT BEDSIDE
--- NOTE | 2017-01-16 03:46 | NUR ---
ELIMINATION/ACTIVITY PT ASSISTED ONTO BEDSIDE COMMODE TO VOID PT HAS BEEN INCONTINENT OF URINE WHILE RESTING STATES SHE MUST HAVE GONE SOME WHEN SHE WAS ASLEEP AND DIDN'T KNOW IT PT TRANSFERED TO COMMODE WITH MAX ASSIST OF ONE STAFF, AND WOULD HAVE NEEDED 2 ASSIST IF SHE WAS LARGER.
--- NOTE | 2017-01-16 03:56 | NUR ---
ELIMINATION PT VOIDED 400CC URINE, BUT DIS HAVE SMALL BM IN THE URINE THAT CONTAMINATED THE SPECIMAN
--- NOTE | 2017-01-16 03:57 | NUR ---
ACTIVITY PT ABLE TO STAND UP BUT CAN'T BEAR WEIGHT FOR MORE THAN ABOUT 30-40 SECONDS UNABLE TO BEAR WEIGHT FOR STAFF TO GET PULL-UP ON AND PT CLEANED. HAD TO SIT PT BACK DOWN ON THE COMMODE BECAUSE HER LEGS WOULD NOT HOLD HER GRADUAL BENDING OF KNEES AND LEGS JUST KEPT GOING DOWN. STAFF ABLE TO GET PT ON THE CART WITHOUT PROBLEM BECAUSE OF HER SIZE. SON REPORTS SHE JUST HAS NO LOWER BODY STRENGTH AND THAT HAS BEEN THE PROBLEM PT DOES LIVE AT HOME ALONE WITH FAMILY CLOSE BY
--- OUTSIDE RECORDS SUMMARY | 2017-01-16 04:20 | XMS REPORT | Continuity of Care Document ---
Author Author [facility] Organization [facility] Address Unknown Phone Unavailable Allergies Medications Problems Procedures Results Encounters ACCT No. Visit Date/Time Discharge Status Pt. Type Provider Facility Loc./Unit Complaint [id number] 11/13/2013 13:31:00 11/13/2013 23 :59:59 CLS Outpatient
[2017-01-16] MEDS ORDERED: NORMAL SALINE 1,000 ML IV SCH (04:22)
[2017-01-16] MEDS ORDERED: ONDANSETRON 4mg/2ml INJECTION IV PRN (04:30)
--- NOTE | 2017-01-16 04:34 | NUR ---
XRAY PORTABLE CHEST XRAY DONE PT GIANA WELL
--- NOTE | 2017-01-16 04:43 | NUR ---
REPORT REPORT CALLED TO JACKELYN CRAIG ON MEDICAL UNIT
[2017-01-16] MEDS ORDERED: GLUCOSE ORAL GEL 40% 37.5 G TUBE PO PRN (04:45)
[2017-01-16] MEDS ORDERED: DEXTROSE 50% SYRINGE 50ml (Eq. 1 AMP) IV PRN (04:45)
--- NOTE | 2017-01-16 05:00 | NUR ---
ADMIT PT TAKEN TO MEDICAL UNIT PER CART TO ROOM 146 ESCORTED BY RN AND FAMILY
[2017-01-16] MEDS ORDERED: ACETAMINOPHEN 500 MG TABLET PO PRN (05:45)
--- NOTE | 2017-01-16 05:59 | HPPDOC ---
MARTI GARCÍA MD 01/16/17 0548: HPI - Adult Date DATE: 01/16/17 TIME: 05:43 General Chief Complaint: weak History of Present Illness Please note that the patient was seen via telemedicine with nursing assistance on 01/16/2017. Ms. Gonzalez is a pleasant 86yo woman who lives independently with her cat and has h/o DM2 on metformin, HTN, L elbow ORIF with fall, and was just admitted to this facility on 01/01-01/13/2017 for debility with new afib and systolic heart failure with AStenosis and other valvular disease with hypoxia. She admits to feeling weak since home with 1400 01/15 nonsyncopal fall in the bathroom down for a few hours until home health found her. She says she could sit and crawl, yet did not think to get to the phone. No fevers, chills, nausea, sob recognized, and recognizes new medications since discharge but could not volunteer them. No chest pain. Only pain is back pain since the event with Xrays of back in ED with no fx but noted scoliosis and restrictive changes. Past Medical History Past Medical History Patient's Medical History: (1) Chronic systolic (congestive) heart failure (2) Atrial fibrillation HTN Diabetes Mellitus chronic wound of elbow Surgical History Patient's Surgical History: Vaginal Hysterectomy Parathyroidectomy ORIF of left elbow Current Medications Home Meds Active Scripts Furosemide (Furosemide) 40 Mg Tablet, 1 TAB PO BID for 30 Days, #60 TAB Prov:CAITIE CARRIZALES APRN 01/13/17 Benazepril HCl (Benazepril HCl) 20 Mg Tablet, 20 MG PO DAILY for 30 Days, #30 TAB Prov:CAITIE CARRIZALES APRN 01/13/17 Metoprolol Tartrate (Lopressor) 50 Mg Tablet, 75 MG PO BIDWM for 30 Days, #90 TAB Prov:CAITIE CARRIZALES APRN 01/13/17 Apixaban (Eliquis) 5 Mg Tablet, 2.5 MG PO BID for 30 Days, #30 TAB Prov:CAITIE CARRIZALES APRN 01/13/17 Reported Medications Cyanocobalamin/Folic Acid (Vitamin Q51-Lugte Acid Tablet) 1 Each Tablet, 1000 MCG PO DAILY 01/16/17 Levofloxacin (Levofloxacin) 500 Mg Tablet, 500 MG PO ACB, TAB 01/16/17 Potassium Chloride (Klor-Con M10) 10 Meq Tablet, 10 MEQ PO BIDWM, TAB Take 1 tablet, by mouth, 2 times a day with meals. 01/16/17 Aspirin (Aspir 81) 81 Mg Tablet.dr, 81 MG PO DAILY 07/15/16 Calcium Carbonate (Calcium) 600 Mg Tablet, 600 MG PO BID 07/15/16 Magnesium Oxide (Magnesium) 250 Mg Tablet, 250 MG PO DAILY, TAB 07/15/16 Psyllium Seed (with Sugar) (Metamucil Fiber Wafer) 1 Each Wafer, 2 TAB PO DAILY 07/15/16 Niacin (Niacin) 50 Mg Tablet, 50 MG PO TID 07/15/16 Ascorbic Acid (Vitamin C) 1,000 Mg Tablet, 1000 MG PO BID 07/15/16 Cholecalciferol (Vitamin D3) (Vitamin D) 1,000 Unit Capsule, 1000 UNIT PO DAILY 07/15/16 Vitamin E (Dl,Tocopheryl Acet) (Vitamin E) 1,000 Unit Capsule, 1000 UNIT PO Fr@ 0800 07/15/16 Citalopram Hydrobromide (Citalopram HBr) 10 Mg Tablet, 10 MG PO DAILY 07/15/16 Metformin HCl (Metformin HCl) 500 Mg Tablet, 500 MG PO DAILY 07/15/16 Discontinued Reported Medications Amlodipine Besylate/Benazepril (Amlodipine-Benazepril 5-20 mg) 1 Each Capsule, 1 CAP PO DAILY 07/15/16 Discontinued Scripts Hydrocodone/Apap (Orosi 5-325 Tablet) 5-325 Tablet, 1 TAB PO HS and PRN for PAIN , #30 TAB 0 Refills Prov:ORLANDO HARDIN MD 07/18/16 Allergies: Coded Allergies: No Known Drug Allergies (Unverified Allergy, Unknown, 01/16/17) Family History Family History: Father- CAD Mother- Ovarian Cancer, at 57 Social History Smoking Status: Never smoker Does patient use chewing tobac: No Second Hand Exposure: No Substance Use Type: does not use Alcohol Intake: none Marital Status: Single Housing: apartment Current Occupational Status: retired Advance Directives: Yes DNR, Yes DPOA for Healthcare Only Review of Systems Unable to Obtain Comments 10+ systems reviewed and negative aside form in HPI Physical Exam General General Nourishment: well nourished, apparent age Vital Signs Vital Signs Date Time Temp Pulse Resp B/P Pulse Ox O2 Delivery O2 Flow Rate FiO2 01/16/17 05:00 98.2 84 16 102/61 98 Nasal Cannula 4.00 Height (Feet): 5 Height (Inches): 5.00 Telemetry Rhythm: Atrial Fibrillation Eyes Brief: FOUND: EOMI Respiratory Brief: FOUND: equal bilaterally, symmetrical, NOT FOUND: wheezes Comments decreased at the bases Cardiovascular (brief) Comments irr irr rhythm with noted 2/6 systolic murmur and trace LE edema Abdomen (brief) Abdominal Brief: FOUND: BS normo active x4, soft, NOT FOUND: distended Integumentary (brief) Integumentary Brief: FOUND: pink Comments L elbow exam difficult, evidence of chronic changes with ecchymoses/past falls Neurologic (brief) Neurological Brief: FOUND: cranial 2-12 intact Comments hard of hearing, no lateralizing signs Neurologic RN Documented GCS Eye Opening: (4)Spontaneous Verbal: (5)Oriented Motor: (6)Obeys Commands Total: Psychiatric (brief) FOUND: normal affect, oriented Laboratory Laboratory Tests Test 01/16/17 02:15 White Blood Count 15.6T/MM3 Red Blood Count 3.95M/MM3 Hemoglobin 11.9GM/DL Hematocrit 36.7% Mean Corpuscular Volume 92.9UM3 Mean Corpuscular Hemoglobin 30.1UUG Mean Corpuscular Hemoglobin Concent 32.4GM/DL RDW Standard Deviation 49.4FL Platelet Count 269T/MM3 Mean Platelet Volume 9.8UM3 Turbidity < 20 Sodium Level 140MEQ/L Potassium Level 4.4MEQ/L Chloride Level 94MEQ/L Carbon Dioxide Level 36MEQ/L Anion Gap 10MEQ/L Blood Urea Nitrogen 46.0MG/DL Creatinine 1.0MG/DL Glomerular Filtration Rate Calc 52 BUN/Creatinine Ratio 46RATIO Glucose Level 255MG/DL Calculated Osmolality 290MOSM/KG Calcium Level 9.9MG/DL Icterus Index < 2 Total Creatine Kinase 297U/L Chemistry Specimen Hemolysis < 15 Assessment & Plan Problems: (1) Weakness Status: Acute Assessment & Plan: full admit with PT/OT and appears acute on chronic with the below diagnosis all contributory, especially new afib and systolic HF with hypoxia. May need placement, and SW consult placed. With TALITA creat 0.7 to 1 and dehydrated will give NS at 100ml/hr cautiously and check 0800 labs including CK to eval for rhabdomyolysis. Noted leukocytoisis with no fever, similar to prior admit. Check UACI and PCXR , monitor temp and have low abx threshold. (2) Atrial fibrillation Status: Chronic Qualifiers: Atrial fibrillation type: permanent Qualified Codes: I48.2 - Chronic atrial fibrillation Assessment & Plan: elequis and metoprol as previously started, check troponin once with the weakness (3) Chronic systolic (congestive) heart failure Status: Chronic Assessment & Plan: based on previous CXR is likely chronic with noted EF 40% last admit. Diuretic restart once euvolemia and cardiology prn. (4) Valvular disease Status: Chronic (5) Hypoxia Status: Acute Assessment & Plan: check vbg with bicarb up and could be contraction alkalosis , but also could be scoliosis and kyphosis with pleural effusion induced restrictive lung disease. O2 with parameters. (6) HTN (hypertension) Status: Chronic (7) Diabetes mellitus Status: Chronic Qualifiers: Diabetes mellitus type: type 2 Assessment & Plan: SSI, CBGs, hold metformin, check A1C as could make fluid balance difficult if uncontrolled. Diet. DVT Prophylaxis: SCD'S, other Code Status Do Not Resuscitate Hospital Course Summary Disclaimer The hospital course summary below is not to be considered part of the above Progress Note. RADHA ESCOBAR MD 01/16/17 1200: Past Medical History Current Medications Home Meds Active Scripts Furosemide (Furosemide) 40 Mg Tablet, 1 TAB PO BID for 30 Days, #60 TAB Prov:CAITIE CARRIZALES APRN 01/13/17 Benazepril HCl (Benazepril HCl) 20 Mg Tablet, 20 MG PO DAILY for 30 Days, #30 TAB Prov:CAITIE CARRIZALES APRN 01/13/17 Metoprolol Tartrate (Lopressor) 50 Mg Tablet, 75 MG PO BIDWM for 30 Days, #90 TAB Prov:CAITIE CARRIZALES APRN 01/13/17 Apixaban (Eliquis) 5 Mg Tablet, 2.5 MG PO BID for 30 Days, #30 TAB Prov:CAITIE CARRIZALES APRN 01/13/17 Reported Medications Cyanocobalamin/Folic Acid (Vitamin U22-Hkgzd Acid Tablet) 1 Each Tablet, 1000 MCG PO DAILY 01/16/17 Levofloxacin (Levofloxacin) 500 Mg Tablet, 500 MG PO ACB, TAB 01/16/17 Potassium Chloride (Klor-Con M10) 10 Meq Tablet, 10 MEQ PO BIDWM, TAB Take 1 tablet, by mouth, 2 times a day with meals. 01/16/17 Aspirin (Aspir 81) 81 Mg Tablet.dr, 81 MG PO DAILY 07/15/16 Calcium Carbonate (Calcium) 600 Mg Tablet, 600 MG PO BID 07/15/16 Magnesium Oxide (Magnesium) 250 Mg Tablet, 250 MG PO DAILY, TAB 07/15/16 Psyllium Seed (with Sugar) (Metamucil Fiber Wafer) 1 Each Wafer, 2 TAB PO DAILY 07/15/16 Niacin (Niacin) 50 Mg Tablet, 50 MG PO TID 07/15/16 Ascorbic Acid (Vitamin C) 1,000 Mg Tablet, 1000 MG PO BID 07/15/16 Cholecalciferol (Vitamin D3) (Vitamin D) 1,000 Unit Capsule, 1000 UNIT PO DAILY 07/15/16 Vitamin E (Dl,Tocopheryl Acet) (Vitamin E) 1,000 Unit Capsule, 1000 UNIT PO Fr@ 0800 07/15/16 Citalopram Hydrobromide (Citalopram HBr) 10 Mg Tablet, 10 MG PO DAILY 07/15/16 Metformin HCl (Metformin HCl) 500 Mg Tablet, 500 MG PO DAILY 07/15/16 Discontinued Reported Medications Amlodipine Besylate/Benazepril (Amlodipine-Benazepril 5-20 mg) 1 Each Capsule, 1 CAP PO DAILY 07/15/16 Discontinued Scripts Hydrocodone/Apap (Orosi 5-325 Tablet) 5-325 Tablet, 1 TAB PO HS and PRN for PAIN , #30 TAB 0 Refills Prov:ORLANDO HARDIN MD 07/18/16 Allergies: Coded Allergies: No Known Drug Allergies (Unverified Allergy, Unknown, 01/16/17) Assessment & Plan Problems: (1) Weakness Status: Acute Assessment & Plan: full admit with PT/OT and appears acute on chronic with the below diagnosis all contributory, especially new afib and systolic HF with hypoxia. May need placement, and SW consult placed. With TALITA creat 0.7 to 1 and dehydrated will give NS at 100ml/hr cautiously and check 0800 labs including CK to eval for rhabdomyolysis. Noted leukocytoisis with no fever, similar to prior admit. Check UACI and PCXR , monitor temp and have low abx threshold. (2) Atrial fibrillation Status: Chronic Qualifiers: Atrial fibrillation type: permanent Qualified Codes: I48.2 - Chronic atrial fibrillation Assessment & Plan: elequis and metoprol as previously started, check troponin once with the weakness (3) Chronic systolic (congestive) heart failure Status: Chronic Assessment & Plan: based on previous CXR is likely chronic with noted EF 40% last admit. Diuretic restart once euvolemia and cardiology prn. (4) Valvular disease Status: Chronic (5) Hypoxia Status: Acute Assessment & Plan: check vbg with bicarb up and could be contraction alkalosis , but also could be scoliosis and kyphosis with pleural effusion induced restrictive lung disease. O2 with parameters. (6) HTN (hypertension) Status: Chronic (7) Diabetes mellitus Status: Chronic Qualifiers: Diabetes mellitus type: type 2 Assessment & Plan: SSI, CBGs, hold metformin, check A1C as could make fluid balance difficult if uncontrolled. Diet. Plan/Intensity of Service Have independently interviewed and examined pt. Chart reviewed. Reviewed above note and concur. CC: Weakness, not able to get up after a fall. HPI: 86 y/o female presents to [facility] secondary to not able to get up after at fall. Recently Hospitalized at [facility] from 01/01 until 01/13-presented with debility and weakness at that time. During hospitalization, found to have Afib and systolic HF. Medications initiated. Pt participated with therapy and made gains with strength. Discharged to home with O2 and HH. Doing well at home until yesterday when had fall and could not get up. Had injury to right elbow and back. No LOC. No PAYTON or head pain. Unable to get herself up. On floor for several hours. Could crawl around. Did not go to phone to get help. Was found and taken to [facility] for evaluation. Dx in ED with dehydration. WBC with elevation. Admitted for further evaluation and treatment. 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 Allergies and meds reviewed and noted. Uncertain about Levaquin - not on med list from discharge. SHx: resided independently-has HH. No smoke/ETOH. FHx: Father with CAD. Mother at 57 from Ovarian CA. ROS: Gen: No f/c. Appetite stable. HEENT: No PAYTON/Head pain. No change in vision or hearing. No mouth pain. Lungs: No increased cough, congestion or sputum. CV: Did feel palpitation and fast heart rate when down. No chest pain. GI: stools loose. No ab pain. Neuro: no localizing symptoms. Notes numbness to fingertips bilaterally. Musculoskeletal: note discomfort to back and right elbow from fall. Remainder of 10 point ROS negative. Exam: GEN: WDWN elderly female. Awake and alert HEENT: NC/AT PERRLA EOMI no scleral icterus MMM [place] Neck: midline supple CV: irregularly irregular Lungs: decrease bilaterally. No crackles, wheezes or distress AB: soft nt/nd BS present EXT: thin and without edema; SCD on LE NEURO: CN II-XII intact. No focal motor deficits PSYCH: Awake alert appropriate. SKIN: Bruising to right elbow. LAB: noted Assessment: as above. PLAN: Inpatient admission due to weakness with fall - concern for rhabdo due to pt being down. Trend CPK. IVF of NS started at 100cc/hr for hydration. Will hold for now due to systolic heart failure. Will hold on Diuretics for now- monitoring volume status. Hold on lisinopril as BP running low normal. PT/OT to help functional status. Continue Eliquis for anticoagulation due to Afib. Monitor sugars. Monitor tele. Discussed with pt and family that further outpatient care would be very prudent due to her significant decline that occurred in just a few days after leaving hospital-pt and family seem to be open to Skilled care. Discussed this with CM. Pt will be DNR as per her wishes. Hospital Course Summary Hospital Course Summary 01/16 Inpatient admission due to weakness with fall - concern for rhabdo due to pt being down. Trend CPK. IVF of NS started at 100cc/hr for hydration. Will hold for now due to systolic heart failure. Will hold on Diuretics for now- monitoring volume status. Hold on lisinopril as BP running low normal. PT/OT to help functional status. Continue Eliquis for anticoagulation due to Afib. Monitor sugars. Monitor tele. Discussed with pt and family that further outpatient care would be very prudent due to her significant decline that occurred in just a few days after leaving hospital-pt and family seem to be open to Skilled care. Discussed this with CM. Pt will be DNR as per her wishes. MARTI GARCÍA MD Jan 16, 2017 05:48 RADHA ESCOBAR MD Jan 16, 2017 12:00
--- NOTE | 2017-01-16 06:22 | NUR ---
STATUS PT ADMIT FROM ED AT 0500. DR GARCÍA SEEN PT BY TELE. NEW ORDERS REVIEWED AND PLAN OF CARE WITH PT. PT RESTING IN BED WITH HOB UP FOR COMFORT. PT RATES PAIN 4, STATES NOT TO BAD NOW. REPORT FROM ED NURSE WAS PT IS TO WEAK TO STAND. PT WAS ASSISTED BY NURSE AND WAS UNABLE TO STAND UP. IVF'S WERE STARTED AT 100 ML/HR. PT IS ALERT AND ORIENTED X 3, PLEASANT WITH ADMIT. CALL LIGHT WITHIN REACH. BED ALARM ON.
[2017-01-16 07:26] LABS: HCT - HEMATOCRIT 37.1 % (36-46); MEAN CORPUSCULAR HGB 30.3 UUG (26-34); MEAN CORPUSCULAR HGB CONC(MCHC 32.3 GM/DL (31-37); MEAN CORPUSCULAR VOLUME 93.7 UM3 (80-100); MEAN PLATELET VOLUME 9.9 UM3 (9.4-12.4); RED BLOOD COUNT 3.96 M/MM3 (4.00-5.20); VBG TOTAL CO2 41.9 MEQ/L; WBC - WHITE BLOOD COUNT 14.8 T/MM3 (4.5-11.0)
[2017-01-16 07:39] LABS: ANION GAP 8 MEQ/L (5-15); BUN/CREATININE RATIO 49 RATIO (6-26); CALCIUM 9.9 MG/DL (8.4-10.2); CHLORIDE 96 MEQ/L (98-107); CK - CPK 229 U/L (30-135); CO2 - CARBON DIOXIDE 37 MEQ/L (22-30); CREATININE 0.9 MG/DL (0.7-1.2); GLOMERULAR FILTRATION RATE 59; GLUCOSE 173 MG/DL (65-110); POTASSIUM 4.2 MEQ/L (3.6-5); SODIUM 141 MEQ/L (134-144)
[2017-01-16 07:59] LABS: ANISOCYTOSIS 1+; BAND NEUTROPHILS # 0.9 T/MM3; EOSINOPHILS # (MANUAL) 0.1 T/MM3 (0-0.5); LYMPHOCYTES # (MANUAL) 0.6 T/MM3 (1-4.8); MONOCYTES # (MANUAL) 0.3 T/MM3 (0-0.8); NEUTROPHILS #(MANUAL)-ABSOLUTE 12.6 T/MM3 (1.8-7.7); POIKILOCYTOSIS 1+; REACTIVE LYMPHOCYTES # 0.3 T/MM3 (0-0); TOTAL CELLS COUNTED 100 %
[2017-01-16] MEDS: APIXABAN 5 MG TABLET PO SCH ×2 (09:10→21:37)
[2017-01-16] MEDS: ASPIRIN *EC* 81mg TABLET PO SCH (09:11)
--- NOTE | 2017-01-16 10:10 | NUR ---
CM CM TO VISIT PT. CM EXPLAINED ROLE AND PROVIDED CONTACT INFORMATION. PT HAS HOME O2 PER RECENT HOSPITAL STAY AND THINKS SHE MAY WANT HOME HEALTH WHEN SHE GOES HOME THIS TIME. PT AWARE TO CALL CM SHOULD NEEDS ARISE.
[2017-01-16] MEDS ORDERED: PRN ORDERS MC (11:30)
[2017-01-16] MEDS ORDERED: MILK OF MAGNESIA 30 ML SUSP PO PRN (11:30)
[2017-01-16] MEDS ORDERED: MAG-AL + SIM LIQUID 30 ML UDC PO PRN (11:30)
[2017-01-16] MEDS ORDERED: NITROGLYCERIN 0.4 MG SUBLINGUAL TABLET SL PRN (11:30)
[2017-01-16] MEDS ORDERED: BISACODYL 10 MG SUPPOSITORY RECTALLY PRN (11:30)
[2017-01-16 11:36] LABS: ALBUMIN 2.7 G/DL (3.5-5.0); ALBUMIN/GLOBULIN RATIO 0.9 RATIO (1.1-2.2); ALKALINE PHOSPHATASE 140 U/L (38-126); ALT (SGPT) 48 U/L (9-52); AST (SGOT) 53 U/L (14-36); TOTAL PROTEIN 5.6 G/DL (6.3-8.2)
--- NOTE | 2017-01-16 12:08 | NUR ---
MARITZA CM IN TO VISIT PT TALKED WITH HER ABOUT A BACK UP PLAN IF GOING HOME ON HER OWN IS NOT THE BEST OPTION AND THERAPY WERE NEEDED R/T WEAKNESS. PT PROVIDED LIST OF AREA SKILLED FACILITIES TO LOOK OVER.
[2017-01-16] MEDS: INSULIN ASPART 100 UNIT/ML SQ PRN ×2 (12:49→18:32)
[2017-01-16 13:31] LABS: CK - CPK 164 U/L (30-135)
[2017-01-16] MEDS: NIACIN 100 MG TABLET PO SCH ×2 (15:05→21:37)
--- NOTE | 2017-01-16 19:13 | NUR ---
status Pt A/O x3, V/S stable on 1.5L weaned down from 4L. Pt has chronic back, denies need for pain meds, no PRN meds given. Pt eating and drinking well, denies N/V. Pt ambulating well with 1x assist and walker to bathroom, denies SOA.
[2017-01-16] MEDS: HYDROCODONE/APAP 5 mg/325 mg TABLET PO PRN (20:17)
[2017-01-16] MEDS: ASCORBIC ACID 500 MG TABLET PO SCH (21:37)
[2017-01-16] MEDS: CALCIUM CARBONATE 600 MG TABLET PO SCH (21:37)
[2017-01-16] MEDS: METFORMIN 500 MG TABLET PO SCH (21:50)
[2017-01-17] VITALS (9 sets, daily range): BP systolic 107–138; BP diastolic 54–69; PULSE 70–92; RESP 16–22; TEMP 96.2–97.7; O2SAT 92–97
--- NOTE | 2017-01-17 04:02 | NUR ---
STATUS PT ALERT AND ORIENTED X 3. SAT ON THE SIDE OF THE BED TO EAT HER SUPPER. FAMILY CAME TO VISIT WITH PT. WHEN FAMILY LEFT PT WAS READY FOR BED. SCD'S ON BILAT LOWER LEGS. HS MEDICATIONS GIVEN, PT REQUESTED PAIN MED FOR LOWER BACK DISCOMFORT. PT READY FOR SLEEPY. SHE CALLED LATER STATING HER LOWER BACK WAS STILL HURTING. REPOSITION PT TO LEFT SIDE AND LOWER THE HEAD OF THE BED. PT SAID IT FELT BETTER BY MOVING. PT WAS ABLE TO SLEEP WITHOUT DIFFICULT. CONTINUES TO FEEL WEAK WITH ANY ACTIVITY. CALL LIGHT WITHIN REACH. BED ALARM ON.
[2017-01-17 05:33] LABS: BASOPHILS % (AUTO) 0.2 % (0-2); EOSINOPHILS # (AUTO) 0.4 T/MM3 (0-0.5); EOSINOPHILS % (AUTO) 4.4 % (0-4); HGB - HEMOGLOBIN 11.5 GM/DL (12-16); IMMATURE GRANULOCYTE # (AUTO) 0.05 T/MM3 (0.00-0.03); IMMATURE GRANULOCYTE % (AUTO) 0.6 % (0.0-0.5); LYMPHOCYTES # (AUTO) 1.7 T/MM3 (1-4.8); LYMPHOCYTES % (AUTO) 20.4 % (23-45); MEAN CORPUSCULAR HGB 30.3 UUG (26-34); MEAN CORPUSCULAR HGB CONC(MCHC 31.9 GM/DL (31-37); MEAN PLATELET VOLUME 10.4 UM3 (9.4-12.4); MONOCYTES # (AUTO) 0.7 T/MM3 (0-0.8); MONOCYTES % (AUTO) 8.5 % (0-9.0); NEUTROPHILS #(AUTO)-ABSOLUTE 5.4 T/MM3 (1.8-7.7); NEUTROPHILS % (AUTO) 65.9 % (33-66); RED BLOOD COUNT 3.79 M/MM3 (4.00-5.20); WBC - WHITE BLOOD COUNT 8.2 T/MM3 (4.5-11.0)
[2017-01-17 05:55] LABS: ALBUMIN 2.6 G/DL (3.5-5.0); ALBUMIN/GLOBULIN RATIO 0.9 RATIO (1.1-2.2); ALKALINE PHOSPHATASE 126 U/L (38-126); ALT (SGPT) 48 U/L (9-52); ANION GAP 6 MEQ/L (5-15); AST (SGOT) 50 U/L (14-36); BUN/CREATININE RATIO 39 RATIO (6-26); CALCIUM 9.7 MG/DL (8.4-10.2); CHLORIDE 99 MEQ/L (98-107); CK - CPK 82 U/L (30-135); CO2 - CARBON DIOXIDE 35 MEQ/L (22-30); CREATININE 0.8 MG/DL (0.7-1.2); GLOMERULAR FILTRATION RATE 68; GLUCOSE 115 MG/DL (65-110); SODIUM 140 MEQ/L (134-144); TOTAL PROTEIN 5.6 G/DL (6.3-8.2)
[2017-01-17] MEDS: HYDROCODONE/APAP 5 mg/325 mg TABLET PO PRN ×2 (05:55→23:06)
--- NOTE | 2017-01-17 06:21 | NUR ---
STATUS PT'S HEART RATE 130-135 AFTER RETURNING TO BED. PT DENIES CHEST PAIN OR SOA. DR GARCÍA UPDATED. HE REQUESTED 0800 SCHEDULE DOSE OF METOPROLOL TO BE GIVEN EARLY. PT IS RESTING IN BED WITH HER EYES CLOSED. CONTINUE TO MONITOR.
[2017-01-17] MEDS: PSYLLIUM PO SCH (09:24)
[2017-01-17] MEDS: FOLBIC TABLET PO SCH (09:24)
[2017-01-17] MEDS: CHOLECALCIFEROL 1,000 UNIT TABLET PO SCH (09:25)
[2017-01-17] MEDS: APIXABAN 5 MG TABLET PO SCH ×2 (09:25→21:14)
[2017-01-17] MEDS: MAGNESIUM OXIDE 400 MG TABLET PO SCH (09:25)
[2017-01-17] MEDS: NIACIN 100 MG TABLET PO SCH ×3 (09:25→21:14)
[2017-01-17] MEDS: CALCIUM CARBONATE 600 MG TABLET PO SCH ×2 (09:26→21:14)
[2017-01-17] MEDS: CITALOPRAM 10mg TABLET PO SCH (09:26)
[2017-01-17] MEDS: METFORMIN 500 MG TABLET PO SCH ×2 (09:26→17:48)
[2017-01-17] MEDS: ASCORBIC ACID 500 MG TABLET PO SCH ×2 (09:28→21:20)
[2017-01-17] MEDS: ASPIRIN *EC* 81mg TABLET PO SCH (09:28)
--- NOTE | 2017-01-17 09:44 | DI ---
Indication: ITS.REASON: Fall, ecchymosis PROCEDURE: LUMBAR SPINE 3 VIEWS: Encounter: Initial Comparison: None Findings: Levoscoliosis with multilevel degenerative disk and facet disease. Extensive costochondral cartilage calcification. No definite acute fracture. Significant bony demineralization limiting detection of nondisplaced fractures. Moderate disk space narrowing at L3-L4 and L4-L5. Impression: No acute displaced fracture. CT or MRI could be performed for further evaluation if there is continued pain. .
--- NOTE | 2017-01-17 09:45 | DI ---
Indication: ITS.REASON: Fall with ecchymosis PROCEDURE: THORACIC SPINE SERIES, 3 VIEW: Encounter: Initial Comparison: None Findings: Kyphoscoliosis of the thoracic spine. Significant bony demineralization limiting detection of nondisplaced fractures. No obvious acute compression fracture seen. Moderate multilevel degenerative change with changes of DISH. Impression: No obvious acute compression fracture. CT or MRI could be performed for further evaluation if there is continued pain. .
--- NOTE | 2017-01-17 10:18 | NUR ---
med Talked with Bruce Mendez about a med given off sched and whether we needed to give again this morning. Received N.O. to give another Metformin with breakfast.
--- NOTE | 2017-01-17 10:22 | DI ---
Indication: ITS.REASON: hypoxia PROCEDURE: CHEST 1 VIEW: Encounter: Initial Comparison: January 13, 2017 Findings: Improving appearance of the chest with decreasing pleural effusions and improving aeration of the lung bases. There is mild remaining pulmonary vascular congestion. No pneumothorax. Cardiac silhouette remains enlarged. Mediastinal contours are stable. Impression: Improved pulmonary edema with decreasing pleural effusions. .
[2017-01-17 10:48] LABS: BLOOD, URINE NEGATIVE (NEGATIVE); COLOR,URINE YELLOW (YELLOW); LEUKOCYTE ESTERASE ,URINE NEGATIVE (NEGATIVE); NITRITE,URINE NEGATIVE (NEGATIVE); UROBILINOGEN,URINE 0.2 EU/DL (NORMAL)
--- NOTE | 2017-01-17 11:16 | NUR ---
tele 7am pt converted from a-fib to flutter, dr notified. Pt asymptomatic and resting.
[2017-01-17] MEDS: INSULIN ASPART 100 UNIT/ML SQ PRN ×3 (12:28→21:24)
--- NOTE | 2017-01-17 13:18 | PNPDOC ---
JUAN MANUEL SONG IMAGING ACCOUNT MANAGER 01/17/17 1314: Subjective Date DATE: 01/17/17 TIME: 13:11 Subjective Veronika is seen today in follow up. She is feeling a bit better. "Back is a little sore from fall." Nursing had reported that her heart rate was elevated when she was out of bed- did get her metoprolol early today. She inadvertently got a second metformin dose last night, but BG has been ok. It was running high since she has been admitted. Chart is reviewed for collateral information. Objective Vital Signs Vital signs Vital Signs Date Time Temp Pulse Resp B/P Pulse Ox O2 Delivery O2 Flow Rate FiO2 01/17/17 12:00 96.8 72 18 116/63 94 Nasal Cannula 1.00 Telemetry Rhythm: Atrial Fibrillation Height (Feet): 5 Height (Inches): 5.00 Weight (Kilograms): 56.800 General General Appearance: Alert, Orientated x 3, Cooperative, No Acute Distress Eyes (Brief) Eyes: FOUND: EOMI, PERRL, NOT FOUND: foreign body, scleral icterus ENMT (Brief) ENMT: FOUND: mucosa moist Neck (Brief) Neck: FOUND: midline, NOT FOUND: JVD, nuchal rigidity, spasm Respiratory (Brief) Respiratory: FOUND: clear all morrison, equal bilaterally, symmetrical, NOT FOUND : rales, wheezes Comments Diminished in bases. Cardiovascular (Brief) Cardiac: FOUND: murmur, regular rate, NOT FOUND: pedal edema, regular rhythm Abdomen (Brief) Abdominal: FOUND: BS normo active x4, soft, NOT FOUND: distended, tender Extremities (Brief) Extremity : Extremity Finding: NOT FOUND: edema Musculoskeletal (Brief) Musculoskeletal: NOT FOUND: deformity, tenderness Psychiatric (Brief) Psychiatric: FOUND: alert, oriented Laboratory Laboratory Laboratory Tests 01/16/17 02:15 01/16/17 07:15 01/17/17 04:52 Laboratory Tests 01/16/17 02:15 01/16/17 07:15 01/17/17 04:52 Sepsis Diagnostic Criteria Sepsis Confirmed/Suspected Infection: No Assessment & Plan Problems: (1) Weakness Status: Acute Assessment & Plan: full admit with PT/OT and appears acute on chronic with the below diagnosis all contributory, especially new afib and systolic HF with hypoxia. May need placement, and SW consult placed. With TALITA creat 0.7 to 1 and dehydrated will give NS at 100ml/hr cautiously and check 0800 labs including CK to eval for rhabdomyolysis. Noted leukocytoisis with no fever, similar to prior admit. Check UACI and PCXR , monitor temp and have low abx threshold. (2) Atrial fibrillation Status: Chronic Qualifiers: Atrial fibrillation type: permanent Qualified Codes: I48.2 - Chronic atrial fibrillation Assessment & Plan: Diagnosed prior admit. Sent home on metoprolol, eliquis (3) Chronic systolic (congestive) heart failure Status: Chronic Assessment & Plan: based on previous CXR is likely chronic with noted EF 40% last admit. Diuretic restart once euvolemia and cardiology prn. (4) Valvular disease Status: Chronic (5) Hypoxia Status: Acute Assessment & Plan: check vbg with bicarb up and could be contraction alkalosis , but also could be scoliosis and kyphosis with pleural effusion induced restrictive lung disease. O2 with parameters. (6) HTN (hypertension) Status: Chronic Qualifiers: Hypertension type: essential hypertension Qualified Codes: I10 - Essential (primary) hypertension (7) Diabetes mellitus Status: Chronic Qualifiers: Diabetes mellitus type: type 2 Assessment & Plan: SSI, CBGs, hold metformin, check A1C as could make fluid balance difficult if uncontrolled. Diet. Plan/Intensity of Service 01/17/17- Patient is looking well. She denies any severe acute c/o. In review of her vitals- BP running lower. Suspect she may be hypovolemic post diuresis. Need to check orthostatics- this may be the cause of her falls. Lasix on hold. Decrease metoprolol to 50mg BID. Continue Eliquis. Add Dig as her HR is variable and does become elevated post activity. Diagnosis of HF is new last visit with valvular heart disease. To follow with Dr. Shelby. BG is running high- increase metformin to BID. A1c 7.3, but BG running over 200 at times. Consult PT/OT. She may benefit from IRU vs SNU upon dismissal as she lives at home alone and fell. Repeat labs in AM for stability. DVT Prophylaxis: other Code Status Do Not Resuscitate Hospital Course Summary Disclaimer The hospital course summary below is not to be considered part of the above Progress Note. Hospital Course Summary 01/16 Inpatient admission due to weakness with fall - concern for rhabdo due to pt being down. Trend CPK. IVF of NS started at 100cc/hr for hydration. Will hold for now due to systolic heart failure. Will hold on Diuretics for now- monitoring volume status. Hold on lisinopril as BP running low normal. PT/OT to help functional status. Continue Eliquis for anticoagulation due to Afib. Monitor sugars. Monitor tele. Discussed with pt and family that further outpatient care would be very prudent due to her significant decline that occurred in just a few days after leaving hospital-pt and family seem to be open to Skilled care. Discussed this with CM. Pt will be DNR as per her wishes. 01/17/17- Patient is looking well. She denies any severe acute c/o. In review of her vitals- BP running lower. Suspect she may be hypovolemic post diuresis. Need to check orthostatics- this may be the cause of her falls. Lasix on hold. Decrease metoprolol to 50mg BID. Continue Eliquis. Add Dig as her HR is variable and does become elevated post activity. Diagnosis of HF is new last visit with valvular heart disease. To follow with Dr. Shelby. BG is running high- increase metformin to BID. A1c 7.3, but BG running over 200 at times. Consult PT/OT. She may benefit from IRU vs SNU upon dismissal as she lives at home alone and fell. Repeat labs in AM for stability. RADHA ESCOBAR MD 01/17/17 1338: Assessment & Plan Problems: (1) Weakness Status: Acute (2) Atrial fibrillation Status: Chronic Qualifiers: Atrial fibrillation type: permanent Qualified Codes: I48.2 - Chronic atrial fibrillation Assessment & Plan: Diagnosed prior admit. Sent home on metoprolol, eliquis (3) Chronic systolic (congestive) heart failure Status: Chronic Assessment & Plan: Chronic with noted EF 40% last admit. Diuretic restart once euvolemia and cardiology prn. (4) Valvular disease Status: Chronic (5) Hypoxia Status: Acute Assessment & Plan: . (6) HTN (hypertension) Status: Chronic Qualifiers: Hypertension type: essential hypertension Qualified Codes: I10 - Essential (primary) hypertension (7) Diabetes mellitus Status: Chronic Qualifiers: Diabetes mellitus type: type 2 Assessment & Plan: . Plan/Intensity of Service Have independently interviewed and examined pt. Chart reviewed. Case discussed with my IMAGING ACCOUNT MANAGER. Care plan developed with my supervision; agree with above. Doing okay. Breathing stable-not having increased cough or congestion. No chest pressure or pain. Eating well-no nausea or ab pain. Still feels weak in general. Lungs: decreased, no distress CV: irregular AB: soft nt/nd +BS MSE: awake alert Plan: Will restart MIMI but at lower dose (10mg at night). Digoxin added to help heart rate. Possible restart Lasix tomorrow. Encourage activities-PT/OT consulted for tomorrow (not here today as it is Wednesday). Monitor lab. Likely need Skilled care at time of discharge. JUAN MANUEL SONG APRN Jan 17, 2017 13:14 RADHA ESCOBAR MD Jan 17, 2017 13:58
[2017-01-17] MEDS: DIGOXIN 125 MCG TABLET PO SCH (14:14)
--- NOTE | 2017-01-17 18:25 | NUR ---
status Pt A/O x3, V/S stable on 1L. Pt eating and drinking well, no N/V. Pt ambulating well with 1x assist and walker, denies SOA. Pt denies pain and no PRN meds given. Pt resting comfortably with no new concerns.
[2017-01-17] MEDS ORDERED: BENAZEPRIL 10 MG TABLET PO SCH (22:00)
[2017-01-18] VITALS: BP 128/70; PULSE 78; RESP 18; TEMP 96.8; O2SAT 92
[2017-01-18 04:00] VITALS: BP 132/64; PULSE 68; RESP 18; TEMP 97.1; O2SAT 97
[2017-01-18 05:20] LABS: BASOPHILS % (AUTO) 0.3 % (0-2); EOSINOPHILS # (AUTO) 0.3 T/MM3 (0-0.5); EOSINOPHILS % (AUTO) 4.1 % (0-4); HCT - HEMATOCRIT 36.1 % (36-46); HGB - HEMOGLOBIN 11.6 GM/DL (12-16); IMMATURE GRANULOCYTE # (AUTO) 0.05 T/MM3 (0.00-0.03); IMMATURE GRANULOCYTE % (AUTO) 0.7 % (0.0-0.5); LYMPHOCYTES # (AUTO) 1.9 T/MM3 (1-4.8); LYMPHOCYTES % (AUTO) 25.8 % (23-45); MEAN CORPUSCULAR HGB 30.5 UUG (26-34); MEAN CORPUSCULAR HGB CONC(MCHC 32.1 GM/DL (31-37); MEAN PLATELET VOLUME 9.9 UM3 (9.4-12.4); MONOCYTES # (AUTO) 0.6 T/MM3 (0-0.8); MONOCYTES % (AUTO) 8.5 % (0-9.0); NEUTROPHILS #(AUTO)-ABSOLUTE 4.5 T/MM3 (1.8-7.7); NEUTROPHILS % (AUTO) 60.6 % (33-66); WBC - WHITE BLOOD COUNT 7.4 T/MM3 (4.5-11.0)
[2017-01-18 05:29] LABS: ALBUMIN 2.6 G/DL (3.5-5.0); ANION GAP 7 MEQ/L (5-15); BUN/CREATININE RATIO 35 RATIO (6-26); CALCIUM 10.1 MG/DL (8.4-10.2); CHLORIDE 96 MEQ/L (98-107); CO2 - CARBON DIOXIDE 37 MEQ/L (22-30); CREATININE 0.8 MG/DL (0.7-1.2); GLOMERULAR FILTRATION RATE 68; GLUCOSE 115 MG/DL (65-110); MAGNESIUM 1.8 MG/DL (1.6-2.3); POTASSIUM 4.5 MEQ/L (3.6-5); SODIUM 140 MEQ/L (134-144)
--- NOTE | 2017-01-18 06:21 | NUR ---
shift Pt easily awaken to sound, A/O x3, slept well tonight. 1x assist with walker to BR. VSS, no c/o, bed alarm in use.
[2017-01-18 07:37] VITALS: BP 143/59; PULSE 62; RESP 18; O2SAT 96
[2017-01-18 08:00] VITALS: PULSE 62; RESP 16
[2017-01-18] MEDS ORDERED: FUROSEMIDE 20 MG TABLET PO SCH (09:00)
[2017-01-18] MEDS: DIGOXIN 125 MCG TABLET PO SCH (09:52)
[2017-01-18] MEDS: ASPIRIN *EC* 81mg TABLET PO SCH (09:52)
[2017-01-18] MEDS: FOLBIC TABLET PO SCH (09:52)
[2017-01-18] MEDS: PSYLLIUM PO SCH (09:52)
[2017-01-18] MEDS: CHOLECALCIFEROL 1,000 UNIT TABLET PO SCH (09:53)
[2017-01-18] MEDS: MAGNESIUM OXIDE 400 MG TABLET PO SCH (09:53)
[2017-01-18] MEDS: NIACIN 100 MG TABLET PO SCH ×2 (09:53→15:40)
[2017-01-18] MEDS: CITALOPRAM 10mg TABLET PO SCH (09:54)
[2017-01-18] MEDS: METFORMIN 500 MG TABLET PO SCH ×2 (09:54→17:44)
[2017-01-18] MEDS: CALCIUM CARBONATE 600 MG TABLET PO SCH (09:54)
[2017-01-18] MEDS: APIXABAN 5 MG TABLET PO SCH (09:54)
[2017-01-18] MEDS: ASCORBIC ACID 500 MG TABLET PO SCH (09:56)
--- NOTE | 2017-01-18 10:32 | NUR ---
status telemtry is sr than goes into afib this shift up to br with gait belt and walker gait is a little unsteady skin breakdown noted on coccyx and 2 small skinbreakdowns on each side of buttocks mepilex drgs aspplied and barrier cream to other areas.L elbow drg changed due to a chronic elbow injury area is a little pink and mepilex to R elbow small skin tear. bursies noted middle of lower back does co of some sorness behind L knee knee.
[2017-01-18 12:00] VITALS: BP 150/57; PULSE 54; RESP 18; TEMP 97; O2SAT 94
--- NOTE | 2017-01-18 12:20 | NUR ---
CM CM IN TO VISIT PT, UPDATED WHITE BOARD WITH CURRENT INFORMATION. PT AWARE TO CALL CM SHOULD NEEDS ARISE.
[2017-01-18] MEDS: INSULIN ASPART 100 UNIT/ML SQ PRN (12:38)
--- NOTE | 2017-01-18 13:55 | NUR ---
DM Screen Diet: CC 1999 Estimated daily calorie needs ~1302kcal After speaking to the patient, the only diabetes self-care management behavior she does daily is take her medications. The patient states her physician has never told her to check BS, and she currently does not count carbohydrates in her diet . internet security specialist went over "Healthy Eating 1,2,3" handout with the patient.The patient feel she didn't need any further diabetes education beyond the handout. RD available @ [phone] Addendum: 01/18/17 at [address] Student charting reviewed by Solutions Engineer.
--- NOTE | 2017-01-18 14:00 | NUR ---
IRU referral received. PT/OT both recommend IRU care. Reviewed with Colorist Photography Dr. Navarro who approves patient for admission. Spoke with patient who is very motivated to return home. Discussed rehab options including SNU and IRU patient states she is agreeable to IRU but some concern present about patient's understanding r/t hearing deficit. Attempted to contact son to discuss options. Message left at cell number requesting return call.
[2017-01-18 15:38] VITALS: BP 140/69; PULSE 81; RESP 20; TEMP 97; O2SAT 95
--- NOTE | 2017-01-18 16:09 | PNPDOC ---
Subjective Date DATE: 01/18/17 TIME: 15:59 Subjective F/U: Weakness, Afib, Systolic HF Doing well this afternoon-tolerated therapy this morning. Still weak, but moving better. No chest pressure or pain. Breathing well without SOA or cough. No nausea. Eating well. No f/c. Objective Vital Signs Vital signs Vital Signs Date Time Temp Pulse Resp B/P Pulse Ox O2 Delivery O2 Flow Rate FiO2 01/18/17 15:38 97.0 81 20 140/69 95 Nasal Cannula 1.00 Telemetry Rhythm: Atrial Fibrillation Height (Feet): 5 Height (Inches): 5.00 Weight (Kilograms): 57.800 General General Appearance: Alert, Well Nourished, Well Developed, Cooperative, No Acute Distress, Looks Stated Age Eyes (Brief) Eyes: FOUND: EOMI, PERRL, NOT FOUND: scleral icterus ENMT (Brief) ENMT: FOUND: hearing intact, mucosa moist Neck (Brief) Neck: FOUND: midline, NOT FOUND: nuchal rigidity, spasm Respiratory (Brief) Respiratory: FOUND: clear all morrison, equal bilaterally, NOT FOUND: rales, wheezes Cardiovascular (Brief) Cardiac: NOT FOUND: pedal edema, regular rate (irregular ), regular rhythm ( irregular) Abdomen (Brief) Abdominal: FOUND: BS normo active x4, soft, NOT FOUND: distended, tender Extremities (Brief) Extremity : Side: Bilateral Extremity: leg Extremity Finding: FOUND: other (scd), NOT FOUND: edema Musculoskeletal (Brief) Musculoskeletal: FOUND: extremities move equally, NOT FOUND: deformity, spasm Integumentary (Brief) Integumentary: FOUND: dry, warm Neurologic (Brief) Neurological: FOUND: cranial 2-12 intact, motor (intact ) Psychiatric (Brief) Psychiatric: FOUND: alert, attentive, normal affect, oriented Laboratory Laboratory Laboratory Tests 01/17/17 04:52 01/18/17 04:55 Laboratory Tests 01/17/17 04:52 01/18/17 04:55 Sepsis Diagnostic Criteria Sepsis Confirmed/Suspected Infection: No Assessment & Plan Problems: (1) Weakness Status: Acute (2) Atrial fibrillation Status: Chronic Qualifiers: Atrial fibrillation type: permanent Qualified Codes: I48.2 - Chronic atrial fibrillation Assessment & Plan: Diagnosed prior admit. Sent home on metoprolol, eliquis (3) Chronic systolic (congestive) heart failure Status: Chronic Assessment & Plan: Chronic with noted EF 40% last admit. Diuretic restart once euvolemia and cardiology prn. (4) Valvular disease Status: Chronic (5) Hypoxia Status: Acute Assessment & Plan: . (6) HTN (hypertension) Status: Chronic Qualifiers: Hypertension type: essential hypertension Qualified Codes: I10 - Essential (primary) hypertension (7) Diabetes mellitus Status: Chronic Qualifiers: Diabetes mellitus type: type 2 Assessment & Plan: . Plan/Intensity of Service Will d/c to IRU for aggressive PT/OT to maximize functional status. May d/c IV site and SCD. Continue with current medications. Dr Navarro to follow on IRU for rehab care, Hospitalist to follow for medical concerns. Pt to F/U with Dr Aly 1 week post d/c from IRU. Medically stable for discharge. See orders for details. Case discussed with CM and family. Time spent with pt care and discharge greater than 35 minutes. DVT Prophylaxis: SCD'S, other (Eliquis ) Code Status Do Not Resuscitate Hospital Course Summary Disclaimer The hospital course summary below is not to be considered part of the above Progress Note. Hospital Course Summary 01/16 Inpatient admission due to weakness with fall - concern for rhabdo due to pt being down. Trend CPK. IVF of NS started at 100cc/hr for hydration. Will hold for now due to systolic heart failure. Will hold on Diuretics for now- monitoring volume status. Hold on lisinopril as BP running low normal. PT/OT to help functional status. Continue Eliquis for anticoagulation due to Afib. Monitor sugars. Monitor tele. Discussed with pt and family that further outpatient care would be very prudent due to her significant decline that occurred in just a few days after leaving hospital-pt and family seem to be open to Skilled care. Discussed this with CM. Pt will be DNR as per her wishes. 01/17/17- Patient is looking well. She denies any severe acute c/o. In review of her vitals- BP running lower. Suspect she may be hypovolemic post diuresis. Need to check orthostatics- this may be the cause of her falls. Lasix on hold. Decrease metoprolol to 50mg BID. Continue Eliquis. Add Dig as her HR is variable and does become elevated post activity. Diagnosis of HF is new last visit with valvular heart disease. To follow with Dr. Shelby. BG is running high- increase metformin to BID. A1c 7.3, but BG running over 200 at times. Consult PT/OT. She may benefit from IRU vs SNU upon dismissal as she lives at home alone and fell. Repeat labs in AM for stability. Will restart MIMI but at lower dose (10mg at night). Digoxin added to help heart rate. Possible restart Lasix tomorrow. 01/18 Doing well this afternoon-tolerated therapy this morning. Still weak, but moving better. No chest pressure or pain. Breathing well without SOA or cough. No nausea. Eating well. No f/c. Will d/c to IRU for aggressive PT/OT to maximize functional status. May d/c IV site and SCD. Continue with current medications. Dr Navarro to follow on IRU for rehab care, Hospitalist to follow for medical concerns. Pt to F/U with Dr Aly 1 week post d/c from IRU. Medically stable for discharge. See orders for details. RADHA ESCOBAR MD Jan 18, 2017 16:03
[2017-01-18] MEDS ORDERED: DIGO125T PO (16:11)
[2017-01-18] MEDS ORDERED: METO-482 PO (16:11)
[2017-01-18] MEDS ORDERED: FURO20TA4 PO (16:11)
[2017-01-18] MEDS ORDERED: BENA10TA3 PO (16:11)
--- NOTE | 2017-01-18 19:38 | NUR ---
iv lock and telemtry and scds dc:d discharged to iru per wc with glasses hearing aides case and batteries.
--- NOTE | 2017-01-19 09:50 | DSF ---
ADMISSION DIAGNOSIS Weakness. DISCHARGE DIAGNOSIS Weakness--stabilized. ASSOCIATED CONDITIONS AND COMPLICATIONS Dehydration--present on admission, resolved. Chronic atrial fibrillation. Iatrogenic coagulopathy with Eliquis secondary to atrial fibrillation. Chronic systolic heart failure. Valvular heart disease. Hypoxia. Hypertension. Type 2 diabetes mellitus. Gait instability. Leukocytosis (present on admission)--resolved. Stage II chronic kidney disease. PROCEDURES None. CONSULTS PT, OT. CLINICAL RESUME Mrs. Gonzalez is an 86-year-old female who resides independently with her cat. She was recently hospitalized at [facility] from 01/01/2017 until 01/13/2017. At that time she presented for debility. During the hospitalization, she was found to have atrial fibrillation as well as systolic heart failure. She was also persistently hypoxic and discharged home on oxygen. She was set up for home health. At home she admitted to feeling weak since discharge. On the day prior to presentation at around 2 p.m. she had a nonsyncopal fall in her bathroom. She was down for several hours until her home health hearing aid specialist her. She reports she could sit and crawl but did not think to get to the phone. She did not have fevers, chills, nausea, or shortness of breath. She recognizes she has new medication since discharge but was uncertain what they were. She was not having chest pain. The only discomfort she was having was pain in her back, which occurred following her fall. In light of her symptoms, hospitalist service was notified and patient was subsequently placed in inpatient admission status at [facility] for further evaluation and treatment. For complete details of the H&P refer to that document. LABORATORY White blood count is 15.6, with hemoglobin 11.9, hematocrit 36.7, MCV 92.9, and platelets 269,000. Serum sodium is 140, potassium 4.4, chloride 94, CO2 36, BUN 46, with creatinine 1.0, GFR 52, and blood glucose 255. Hemoglobin A1c is 7.3%. Total CK is 297. Troponin I is 1.084. AST is 53 with ALT 48. Bilirubin is normal at 1.10. UA is completely unremarkable. HOSPITAL COURSE Patient was placed in inpatient admission status at [facility] under the hospitalist service. There is concern for rhabdomyolysis secondary to her being down. We did trend CPK. IV fluids of normal saline were started at 100 mL an hour to provide hydration. By later on the day of presentation, IV fluids were discontinued secondary to her underlying systolic heart failure. We did initially hold diuretics. Lisinopril was held as blood pressure was initially low. PT and OT were consulted to help increase strength and functional status. Eliquis was continued in light of her atrial fibrillation. Blood sugars and telemetry were monitored. She was made DNR at time of presentation as per her request. Overall her hospital course was one of good improvement. Her CPK did normalize and we saw no impairment of her renal function. Blood pressure did start to and we were able to reintroduce her MIMI inhibitor and diuretics. We did however decrease her Lasix from 40 to mg daily and decreased her benazepril from 20 to 10 mg at night. She did have an episode of tachycardia during the hospitalization. In light of her underlying atrial fibrillation we initiated digoxin and decreased Lopressor to 50 mg b.i.d. Appetite did well during the hospitalization. Blood sugars were somewhat variable with three readings greater than 200. Breathing remained stable although she is still requiring oxygen at 1 liter per nasal cannula. In light of her significant decline in functional status, which unfortunately occurred fairly shortly after she was discharged to home with home health, we did discuss about further care needs. I do worry patient may not be cognizant enough to function well at home independently. She was quite reluctant to go to prison. We did look into IRU to see if continued aggressive PT and OT would improve her functional abilities. Fortunately she was accepted to IRU. It is hoped that with further physical rehabilitative modalities she will be able to return home. While on skilled we will also continue to monitor her atrial fibrillation as well as her systolic heart failure. Of note chest x-ray from presentation did show interval improvement from prior x-rays. She was able to be discharged to IRU in stable condition. NARRATIVE DISCLAIMER: Above narrative is a brief summary of the patient's hospitalization. For complete details of the hospital course, refer to the medical record. DISCHARGE CONDITION Stable/good. DIET No added salt, 2000 kilocalorie ADA. ACTIVITIES As tolerated. MEDICATIONS Benazepril 10 mg q.h.s. Digoxin 0.125 mg daily. Furosemide 20 mg daily. Metoprolol 50 mg b.i.d. Eliquis 2.5 mg b.i.d. Vitamin C 1000 mg b.i.d. Aspirin 81 mg daily. Calcium 600 mg b.i.d. Vitamin D3 1000 units daily. Celexa 10 mg daily. Vitamin B12/folic acid 1000 mcg daily. Magnesium 250 mg daily. Metformin 500 mg daily. Niacin 50 mg t.i.d. Psyllium two tablets daily. Vitamin E 1000 units weekly on Fridays. FOLLOWUP Patient will followed by Dr. Navarro for rehabilitation concerns. Hospitalist service will follow patient for medical needs while on IRU. Definitive hospital followup with Dr. Aly will be made at time of discharge from IRU. INSTRUCTIONS TO PATIENT Patient was instructed on her diagnoses and treatments provided. She was encouraged to be adherent with medications and participate well with therapy. She will watch for temperature elevation, worsening respiratory status, or chest pain. Should these or other concerns arise, she will be in contact with the nursing staff at IRU as well as her care providers. She voiced understanding of the above. Time spent with discharge greater than 35 minutes. CHERRY
[2017-01-22] MEDS ORDERED: VITAMIN E 1,000 UNIT CAPSULE PO SCH (08:00)
== END 2017-01-18 19:20 | DRG 948 ==
LOC: ED 01:13 → EDHOLD 04:12 → MED 05:00
PROVIDERS: ADMIT Hospitalist; ATTEND Hospitalist
DX: R53.1 Weakness (principal); I50.22 Chronic systolic (congestive) heart failure; I13.0 Hypertensive heart and chronic kidney disease with heart failure and stage 1 through stage 4 chronic kidney disease, or unspecified chronic kidney disease; E86.0 Dehydration; I48.2 Chronic atrial fibrillation; E11.22 Type 2 diabetes mellitus with diabetic chronic kidney disease; N18.2 Chronic kidney disease, stage 2 (mild); Z66 Do not resuscitate; R09.02 Hypoxemia; R26.9 Unspecified abnormalities of gait and mobility; Z79.82 Long term (current) use of aspirin
CPT/HCPCS: 36415; 80048; 80053; 80069; 80076; 81003; 82550; 82803; 82948; 83036; 83735; 84484; 85025; 85027; 96374

== ENCOUNTER 2017-01-18 19:30 | Inpatient (IN) | payer MEDICARE, OTHER ==
[~2017-01-18] VITALS: Ht 165.1 cm; Wt 58.2 kg
[~2017-01-18 19:30] MED LIST changes: +BENA10TA3 PO; +CYAN1TAB46 PO; +DIGO125T PO; +FURO20TA4 PO; +LEVO500T88 PO; -POTA-81 PO; +POTA10TA16 PO
--- NOTE | 2017-01-18 19:35 | NUR ---
ADMIT. PT ADMIT TO ROOM 173 VIA WC WITH O2 2L/NC BY MED RN. PT IS ALERT AND OX3. QAWALANGIN NOTED, WEARING GLASSES. PT HAS [employer] IN BLACK BOX AND BATTERIES. 2 DRESSES, 2 UNDERPANTS, 2 BRAS. FAMILY STATE THEY WILL BRING ANOTHER SET.
[2017-01-18 20:00] VITALS: BP 129/64; PULSE 80; RESP 16; TEMP 97.9; O2SAT 97
--- OUTSIDE RECORDS SUMMARY | 2017-01-18 20:20 | XMS REPORT | Continuity of Care Document ---
Author Author [facility] Organization [facility] Address Unknown Phone Unavailable Allergies Medications Problems Procedures Results Encounters ACCT No. Visit Date/Time Discharge Status Pt. Type Provider Facility Loc./Unit Complaint [id number] 11/13/2013 13:31:00 11/13/2013 23 :59:59 CLS Outpatient
--- OUTSIDE RECORDS SUMMARY | 2017-01-18 20:20 | XMS REPORT | Continuity of Care Document ---
Author Author [facility] Organization [facility] Address Unknown Phone Unavailable Support Name Relationship Address Phone RADHA ESCOBAR MD Caregiver [address] [place] [address] [place] [address] Unavailable MARTI GARCÍA MD Caregiver [address] [facility] [address] Unavailable JANUARYGENARO DO Caregiver [address] [place] [address] Unavailable ALE SHIELDS DO Caregiver [address] [place] [address] Unavailable LUIS ANTONIO BEE Next Of Kin Unknown [phone] Insurance Providers Guarantor Jami Bee Address [address] [place] [phone] Email DENIED 17 Payer Medicare Policy Number [id number] Subscriber's Name CarlosJami Lagunas Relationship 18 Self Effective Date 93 Payer [facility] Policy Number [id number] Subscriber's Name Jami Bee Relationship 18 Self Group Number [id number] Advance Directives Directive Response Recorded Date/Time Advanced Directives Type DNR Documentation Living Will DPOA for Healthcare 01/16/17 1:13am Dr Felix Resuscitation Status Do Not Resuscitate 01/16/17 4:12am Resuscitation Documents on File Yes 01/16/17 5:06am DPOA for Healthcare Only Yes 01/16/17 5:59am Living Will Yes 01/16/17 5:06am Problems Active Problems Medical Problem Onset Date Status Atrial fibrillation Unknown Chronic Atrial fibrillation with RVR Unknown Resolved CHF with unknown LVEF Unknown Acute Cardiomegaly Unknown Chronic Chronic systolic (congestive) heart failure Unknown Chronic Chronic wound of extremity Unknown [...] Problems Medical Problem Onset Date Dehydration Unknown Dehydration Unknown Fall Unknown Weakness of both legs Unknown Medications Current Home Medications Medication Dose Units Route Directions Days Qty Instructions Start Date Apixaban (Eliquis) 5 Mg Tablet 2.5 Mg Oral Twice A Day 30 Days 30 Tablet 01/13/17 Ascorbic Acid (Vitamin C) 1,000 Mg Tablet 1,000 Mg Oral Twice A Day 07/15/16 Aspirin (Aspir 81) 81 Mg Tablet.dr 81 Mg Oral Daily 07/15/16 Benazepril Hcl 10 Mg Tablet 10 Mg Oral Bedtime for Chf 30 Tablet Calcium Carbonate (Calcium) 600 Mg Tablet 600 Mg Oral Twice A Day 07/15/16 Cholecalciferol (Vitamin D3) (Vitamin D) 1,000 Unit Capsule 1,000 Unit Oral Daily 07/15/16 Citalopram Hydrobromide (Citalopram Hbr) 10 Mg Tablet 10 Mg Oral Daily 07/15/16 Cyanocobalamin/Folic Acid (Vitamin F41-Flkjv Acid Tablet) 1 Each Tablet 1,000 Mcg Oral Daily 01/16/17 Digoxin (Lanoxin) 125 Mcg Tablet 125 Mcg Oral Daily for Afib 30 Tablet 01/18/17 Furosemide 20 Mg Tablet 20 Mg Oral Daily for Chf 30 Tablet 01/18/17 Magnesium Oxide (Magnesium) 250 Mg Tablet 250 Mg Oral Daily 07/15 Metformin Hcl 500 Mg Tablet 500 Mg Oral Daily 07/15/16 Metoprolol Tartrate (Lopressor) 50 Mg Tablet 50 Mg Oral Twice Daily With Meals 60 Tablet 01/18/17 Niacin 50 Mg Tablet 50 Mg Oral Three Times A Day 07/15/16 Psyllium Seed (With Sugar) (Metamucil Fiber Wafer) 1 Each Wafer 2 Tab Oral Daily 07/15/16 Vitamin E (Dl,Tocopheryl Acet) (Vitamin E) 1,000 Unit Capsule 1,000 Unit Oral Every Wednesday At 8:00AM 07/15/16 Past Home Medications Medication Directions Ordered Status Acetaminophen/Hydrocodone Bitart (Starbuck 5-325 Tablet) 5-325 Tablet, 1 Tab Oral Hs And Prn for Pain 07/18/16 Discontinued Acetaminophen/Hydrocodone Bitart (Starbuck 5-325 Tablet) 5-325 Tablet, 1 Tab Oral Hs And Prn for Pain 07/15/16 Discontinued Amlodipine Besylate/Benazepril (Amlodipine-Benazepril 5-20 Mg) 1 Each Capsule, 1 Cap Oral Daily 07/15/16 Discontinued Benazepril Hcl 20 Mg Tablet, 20 Mg Oral Daily 01/13/17 Discontinued Furosemide 40 Mg Tablet, 1 Tab Oral Twice A Day 01/13/17 Discontinued Levofloxacin 500 Mg Tablet, 500 Mg Oral Before Breakfast 01/16/17 Discontinued Metoprolol Tartrate (Lopressor) 50 Mg Tablet, 75 Mg Oral Twice Daily With Meals 01/13/17 Discontinued Potassium Chloride (Klor-Con M10) 10 Meq Tablet, 10 Meq Oral Twice Daily With Meals 01/16/17 Discontinued Social History Social History Problem Response Recorded Date/Time Onset Date Status Reason for Hospitalization Dehydration, fall 01/18/2017 5:20pm Not Applicable Not Applicable Chewing Tobacco Status No 01/16/2017 1:35am Not Applicable Not Applicable Hx Substance Use No 01/16/2017 1:35am Not Applicable Not Applicable Hx Alcohol Use No 01/16/2017 1:35am Not Applicable Not Applicable Has the pt used tobacco in the last 12 months No 01/16/2017 5:08am Not Applicable Not Applicable Query Response Start Date Stop Date Smoking Status Never smoker Hospital Discharge Instructions Instructions: Care Instructions: Reason for Hospitalization: Dehydration, fall I was in the hospital because (patient own words): fell Discharge Diet: Low sodium, 2000 KCAL ADA Discharge Activity: As tolerated Follow Up Appointments: Dr Navarro to follow on IRU F/U with Dr Ribeiro 1 week after discharge from IRU Pending Lab / Results: No Pending Lab Wound/Incision Care: n/a Pain Management/Treatment: Tylenol as needed. Expected Signs/Symptoms: Improvement strength and functional status. Notify Physician If: Temp >100.4. Worsening breathing. Chest pain. During Business Hours:: Nursing staff at IRU After Business Hours:: Nursing staff at IRU Condition at time of discharge: Good Plan of Care Discharge Date 01/18/17 7:20pm [place] [facility] Instructions/Education Provided [facility] [place] Congestive Heart Failure Dehydration (DC) Prescriptions See Medication Section Care Plan and Goals See Discharge Instructions Section Functional Status Query Response Date Recorded Mobility Status Transfer w/assist January 18, 2017 5:20pm Assistive Devices Front Wheeled Walker January 18, 2017 5:20pm Activity Limitations Weakness January 18, 2017 5:20pm Feeding Ability Independent January 18, 2017 5:20pm Toileting Ability Assist January 16, 2017 5:12am Grooming Ability Assist January 18, 2017 5:20pm Dressing Ability Assist January 18, 2017 5:20pm Driving Ability Assist January 18, 2017 5:20pm Housework Ability Assist January 18, 2017 5:20pm Meal Preparation Ability Independent January 18, 2017 5:20pm Stair Climbing Ability Assist January 18, 2017 5:20pm Ability to complete ADL's impeded by Impaired Mobility January 18, 2017 5:20pm Cognitive/Perceptual Impairments Impaired vision January 18, 2017 5:20pm Visual Assistive Devices Glasses January 16, 2017 5:12am Hearing Assistive Devices Left hearing aid Right hearing aid January 16, 2017 5:12am Allergies, Adverse Reactions, Alerts Allergen Type Severity Reaction Status Last Updated NKDA Allergy Unknown Active 01/16/17 Immunizations Query Response on File Recorded Date/Time Hx Influenza Vaccination No 01/16/17 5:08am Hx Pneumococcal Vaccination Y 10-09-15 01/16/17 5:08am Hx Influenza Vaccination No 01/16/17 5:08am Vital Signs Acute Vital Signs Vital Response Date/Time Temperature (Fahrenheit) 97.0 deg F (96.8 - 99.1) 01/18/2017 3:38pm Temperature (Calculated Celsius) 36.67393 degrees C (36.0 - 37.3) 01/18/2017 3:38pm Pulse Rate (adult) 81 bpm (60 - 100) 01/18/2017 3:38pm Respiratory Rate 20 breaths/min (10 - 20) 01/18/2017 3:38pm O2 Sat by Pulse Oximetry 95 % (90 - 100) 01/18/2017 3:38pm Oxygen Delivery Method Nasal Cannula 01/17/2017 10:13pm Oxygen Delivery Method Nasal Cannula 01/18/2017 3:38pm Oxygen Flow Rate 1.00 L/min 01/18/2017 3:38pm Blood Pressure 140/69 mm Hg 01/18/2017 3:38pm Blood Pressure Source Automatic Cuff 01/18/2017 3:38pm Height (Feet) 5 feet 01/18/2017 4:09pm Height (Inches) 5.00 inches 01/18/2017 4:09pm Weight (Kilograms) 57.800 kg 01/18/2017 7:40am Body Mass Index (BMI) 20.2 01/16/2017 5:05am Results Laboratory Results Test Name Result Units Flags Reference Collection Date/Time Result Date/ Time Comments QV-Hcb-I-Type Natriuretic Peptide 3280 PG/ML H 0-175 01/13/2017 5:17am 01/13/2017 8:55am Rule in cut points: <50 years old=450; 50-75 years old=900; >75 years old=1800; When utilizing ProBNP rule-in cut points, adjustment for impaired renal function is typically not required. Thyroid Stimulating Hormone (TSH) 1.27 MIU/L 0.47-4.68 01/08/2017 11: 53am 01/08/2017 4:52pm Urine WBC NONE SEEN /HPF 0-5 01/08/2017 [...] CULT NOT INDICATED 01/08/2017 12:16pm 01/08 12:33pm White Blood Count 7.4 T/MM3 4.5-11.0 01/18/2017 4:55am 01/18/2017 5: 20am Red Blood Count 3.80 M/MM3 L 4.00-5.20 01/18/2017 4:55am 01/18/2017 5: 20am Hemoglobin 11.6 GM/DL L 12-16 01/18/2017 4:55am 01/18/2017 5:20am Hematocrit 36.1 % 36-46 01/18/2017 4:55am 01/18/2017 5:20am Mean Corpuscular Volume 95.0 UM3 80-100 01/18/2017 4:55am 01/18/2017 5: 20am Mean Corpuscular Hemoglobin 30.5 UUG 26-34 01/18/2017 4:55am 2016 5:20am Mean Corpuscular Hemoglobin Concent 32.1 GM/DL 31-37 01/18/2017 4:55am 01/18/2017 5:20am RDW Standard Deviation 51.2 FL H 36.9-50.2 01/18/2017 4:55am 01/18/2017 5:20am Platelet Count 271 T/MM3 130-400 01/18/2017 4:55am 01/18/2017 5:20am Mean Platelet Volume 9.9 UM3 9.4-12.4 01/18/2017 4:55am 01/18/2017 5: 20am Neutrophils (%) (Auto) 60.6 % 33-66 01/18/2017 4:55am 01/18/2017 5: 20am Lymphocytes (%) (Auto) 25.8 % 23-45 01/18/2017 4:55am 01/18/2017 5: 20am Monocytes (%) (Auto) 8.5 % 0-9.0 01/18/2017 4:55am 01/18/2017 5:20am Eosinophils (%) (Auto) 4.1 % H 0-4 01/18/2017 4:55am 01/18/2017 5:20am Basophils (%) (Auto) 0.3 % 0-2 01/18/2017 4:55am 01/18/2017 5:20am Immature Granulocyte % (Auto) 0.7 % H 0.0-0.5 01/18/2017 4:55am 2016 5:20am Absolute Neutrophils (auto) 4.5 T/MM3 1.8-7.7 01/18/2017 4:55am 2016 5:20am Absolute Lymphocytes (auto) 1.9 T/MM3 1-4.8 01/18/2017 4:55am 2016 5:20am Absolute Monocytes (auto) 0.6 T/MM3 0-0.8 01/18/2017 4:55am 01/18/2017 5:20am Absolute Eosinophils (auto) 0.3 T/MM3 0-0.5 01/18/2017 4:55am 2016 5:20am Absolute Basophils (auto) 0.0 T/MM3 0-0.2 01/18/2017 4:55am 01/18/2017 5:20am Absolute Immature Granulocyte (auto 0.05 T/MM3 H 0.00-0.03 01/18/2017 4: 55am 01/18/2017 5:20am Neutrophils % (Manual) 85.0 % H 33-66 01/16/2017 7:15am 01/16/2017 7: 59am Band Neutrophils % 6.0 % 0-6 01/16/2017 7:15am 01/16/2017 7:59am Lymphocytes % (Manual) 4.0 % L 23-45 01/16/2017 7:15am 01/16/2017 7: 59am Monocytes % (Manual) 2.0 % 0-9.0 01/16/2017 7:am 01/16/2017 7:59am Eosinophils % (Manual) 1.0 % 0-4 01/16/2017 7:15am 01/16/2017 7:59am Reactive Lymphocytes % 2.0 % H 0-0 01/16/2017 7:15am 01/16/2017 7:59am Band Neutrophils # 0.9 T/MM3 01/16/2017 7:15am 01/16/2017 7:59am Absolute Neutrophils (Manual) 12.6 T/MM3 H 1.8-7.7 01/16/2017 7:15am 7:59am Lymphocytes # (Manual) 0.6 T/MM3 L 1-4.8 01/16/2017 7:15am 01/16/2017 7: 59am Monocytes # (Manual) 0.3 T/MM3 0-0.8 01/16/2017 7:15am 01/16/2017 7: 59am Eosinophils # (Manual) 0.1 T/MM3 0-0.5 01/16/2017 7:15am 01/16/2017 7: 59am Reactive Lymphocytes # 0.3 T/MM3 H 0-0 01/16/2017 7:15am 01/16/2017 7: 59am Red Cell Morphology Comment ABNORMAL 01/16/2017 7:1501/16/2017 7 :59am Anisocytosis 1+ 01/16/2017 7:15am 01/16/2017 7:59am Poikilocytosis 1+ 01/16/2017 7:1501/16/2017 7:59am Icterus Index < 2 0-7 01/18/2017 4:55am 01/18/2017 5:29am Chemistry Specimen Hemolysis < 15 0-25 01/18/2017 4:55am 01/18/2017 5 :29am 0-25: Specimen Exhibited No Hemolysis. Turbidity < 20 0-20 01/18/2017 4:55am 01/18/2017 5:29am Sodium Level 140 MEQ/L 134-144 01/18/2017 4:55am 01/18/2017 5:29am Potassium Level 4.5 MEQ/L 3.6-5 01/18/2017 4:55am 01/18/2017 5:29am Chloride Level 96 MEQ/L L 98-107 01/18/2017 4:55am 01/18/2017 5:29am Carbon Dioxide Level 37 MEQ/L H 22-30 01/18/2017 4:55am 01/18/2017 5: 29am Anion Gap 7 MEQ/L 5-15 01/18/2017 4:55am 01/18/2017 5:29am Blood Urea Nitrogen 28.0 MG/DL H 7-17 01/18/2017 4:55am 01/18/2017 5: 29am Creatinine 0.8 MG/DL 0.7-1.2 01/18/2017 4:55am 01/18/2017 5:29am BUN/Creatinine Ratio 35 RATIO H 6-01/18/2017 4:55am 01/18/2017 5: 29am Glomerular Filtration Rate Calc 68 01/18/2017 4:55am 01/18/2017 5: 29am Glucose Level 115 MG/DL H 65-110 01/18/2017 4:55am 01/18/2017 5:29am Calculated Osmolality 276 MOSM/KG 261-280 01/18/2017 4:55am 01/18/2017 5:29am Calcium Level 10.1 MG/DL 8.4-10.2 01/18/2017 4:55am 01/18/2017 5:29am Phosphorus Level 4.0 MG/DL 2.5-4.5 01/18/2017 4:55am 01/18/2017 5:29am Total Bilirubin 1.10 MG/DL 0.20-1.30 01/17/2017 4:52am 01/17/2017 5: 55am Unconjugated Bilirubin 0.50 MG/DL 0.00-1.10 01/16/2017 7:15am 2016 11:36am Conjugated Bilirubin 0.00 MG/DL 0.00-0.30 01/16/2017 7:15am 01/16/2017 11:36am Alkaline Phosphatase 126 U/L 38-126 01/17/2017 4:52am 01/17/2017 5: 55am Total Protein 5.6 G/DL L 6.3-8.2 01/17/2017 4:52am 01/17/2017 5:55am Albumin 2.6 G/DL L 3.5-5.0 01/18/2017 4:55am 01/18/2017 5:29am Globulin 3.0 G/DL 2.4-3.6 01/17/2017 4:52am 01/17/2017 5:55am Albumin/Globulin Ratio 0.9 RATIO L 1.1-2.2 01/17/2017 4:52am 01/17/2017 5:55am Aspartate Amino Transf (AST/SGOT) 50 U/L H 14-36 01/17/2017 4:52am 01/17 5:55am Alanine Aminotransferase (ALT/SGPT) 48 U/L 9-52 01/17/2017 4:52am 01/17 5:55am Total Creatine Kinase 82 U/L 30-135 01/17/2017 4:52am 01/17/2017 5: 55am Troponin I 0.117 ng/ml 0-0.12 01/16/2017 1:12pm 01/16/2017 1:44pm Troponin values with a difference of 55% increase from orginal troponin value represent a true biological DELTA value. (%increase Calc=Orginal Troponin value, divided by subsequent Troponin value, multiplied by 100) Magnesium Level 1.8 MG/DL 1.6-2.3 01/18/2017 4:55am 01/18/2017 5:29am Hemoglobin A1c 7.3 % 6.1-7.9 01/16/2017 7:1501/16/2017 7:39am <6.0 NON-DIABETIC RANGE 6.1-7.9 [facility] TARGET RANGE >8.0 ACTION SUGGESTED Oxygen Delivery Method (LAB) ROOM AIR 01/16/2017 7:1501/16/2017 7:27am Venous Blood pH 7.440 H 7.31-7.41 01/16/2017 7:1501/16/2017 7:27am Venous Blood Partial Pressure CO2 59 MMHG H 40-52 01/16/2017 7:15 7:27am Venous Blood Partial Pressure O2 32 MMHG L 40-52 01/16/2017 7:1501/16 7:27am Venous Blood HCO3 40 MEQ/L H 22-01/16/2017 7:1501/16/2017 7:27am Venous Blood Total Carbon Dioxide 41.9 MEQ/L 01/16/2017 7:152016 7:27am Venous Blood Base Excess 13.5 MMOL/L H -2.0-2.0 01/16/2017 7:152016 7:27am Venous Blood Oxygen Saturation 65.0 % 01/16/2017 7:1501/16/2017 7: 27am Urine Collection Type CLEANCATCH-MIDSTREAM 01/17/2017 10:38am 01/17 10:48am Urine Color YELLOW YELLOW 01/17/2017 10:38am 01/17/2017 10:48am Urine Turbidity CLEAR CLEAR 01/17/2017 10:38am 01/17/2017 10:48am Urine Specific [place] 1.020 1.015-1.025 01/17/2017 10:38am 2016 10:48am Urine pH 5.0 5.0-8.0 01/17/2017 10:38am 01/17/2017 10:48am Urine Leukocyte Esterase NEGATIVE NEGATIVE 01/17/2017 10:38am 2016 10:48am Urine Nitrite NEGATIVE NEGATIVE 01/17/2017 10:38am 01/17/2017 10: 48am Urine Protein NEGATIVE NEGATIVE 01/17/2017 10:38am 01/17/2017 10: 48am Urine Glucose (UA) NEGATIVE NEGATIVE 01/17/2017 10:38am 01/17/2017 10 :48am Urine Ketones NEGATIVE NEGATIVE 01/17/2017 10:38am 01/17/2017 10: 48am Urine Urobilinogen 0.2 EU/DL NORMAL 01/17/2017 10:38am 01/17/2017 10: 48am Urine Bilirubin NEGATIVE NEGATIVE 01/17/2017 10:38am 01/17/2017 10: 48am Urine Blood NEGATIVE NEGATIVE 01/17/2017 10:38am 01/17/2017 10:48am Urinalysis Comment MICROSCOPIC NOT IND. 01/17/2017 10:38am 2016 10:48am Glucometer 130 mg/dL H 65-110 01/18/2017 5:31pm 01/18/2017 5:37pm Microbiology Results Procedure Source Organism/Result Collection Date/Time Result Date/Time Result Status WOUND CULTURE DEEP TISS-AER/AN Elbow, Left DIPHTHEROID BACILLUS 12/17/2016 11:55am 12/20/2016 2:16pm Final STAPHYLOCOCCUS AUREUS 12/17/2016 11:55am 12/20/2016 2:16pm Final Name: JAMI BEE Unit #: [id number] : 1930 Sex: F Admit Date: 01/16/17 Loc / Svc: MED Discharge Date: DIAGNOSTIC IMAGING REPORT Report #: [id number] [facility] Raúl SERGEI Indication: ITS.REASON: hypoxia PROCEDURE: CHEST 1 VIEW: Encounter: Initial Comparison: January 13, 2017 Findings: Improving appearance of the chest with decreasing pleural effusions and improving aeration of the lung bases. There is mild remaining pulmonary vascular congestion. No pneumothorax. Cardiac silhouette remains enlarged. Mediastinal contours are stable. Impression: Improved pulmonary edema with decreasing pleural effusions. . Procedures Procedure Status Date Provider(s) Neg press wound tx </=50 cm Completed 10/21/16 [id number]"COLLAGEN DRESSING, PAD SIZE 16 SQ. IN. OR LESS, EACH" Completed Rmvl devital tis 20 cm/< Completed 11/04/16 [id number]"COLLAGEN DRESSING, PAD SIZE 16 SQ. IN. OR LESS, EACH" Completed [id number]"BORDER, EACH DRESSING" Completed 11/04/16 [id number]"BORDER, EACH DRESSING" Completed 11/19/16 E&M LEVEL - FACILITY Completed 11/19/16 Mari subq tissue 20 sq cm/< Completed 12/03/16 [id number]"COLLAGEN DRESSING, PAD SIZE 16 SQ. IN. OR LESS, EACH" Completed [id number]"EQUAL TO 48 SQ. IN., WITHOUT ADHESIVE BORDER, EACH DR Completed [id number]"ADHESIVE BORDER, EACH DRESSING" Completed 12/03/16 Mari subq tissue 20 sq cm/< Completed 12/17/16 Culture othr specimn aerobic Completed 12/17/16 Cultr bacteria except blood Completed 12/17/16 Culture type immunologic Completed 12/17/16 Microbe susceptible brennan Completed 12/17/16 Smear gram stain Completed 12/17/16 [id number]"COLLAGEN DRESSING, PAD SIZE 16 SQ. IN. OR LESS, EACH" Completed [id number]"BORDER, EACH DRESSING" Completed 12/17/16 [id number]"COLLAGEN DRESSING, PAD SIZE 16 SQ. IN. OR LESS, EACH" Completed [id number]"BORDER, EACH DRESSING" Completed 12/31/16 E&M LEVEL - FACILITY Completed 12/31/16 Encounters Encounter Location Arrival/Admit Date Discharge/Depart Date Attending Provider Discharged Inpatient [facility] 01/16/17 4:12am 01/18/17 7:20pm RADHA ESCOBAR MD Discharged Inpatient [facility] 01/09/17 11:39am 01/13/17 2:30pm WILLI GOMEZ MD Registered [facility] 12/31/16 1:30pm MAUREEN ANDREWS MD Registered [facility] 12/17/16 11:23am MAUREEN ANDREWS MD Registered [facility] 12/03/16 2:06pm MAUREEN ANDREWS MD Registered [facility] 11/19/16 1:56pm MAUREEN ANDREWS MD Registered [facility] 11/04/16 1:25pm MAUREEN ANDREWS MD Registered [facility] 10/21/16 1:25pm MAUREEN ANDREWS MD
[2017-01-18] MEDS ORDERED: PRN ORDERS MC (21:15)
[2017-01-18 21:21] VITALS: Ht 165.1 cm; Wt 58.2 kg
[2017-01-18] MEDS: BENAZEPRIL 10 MG TABLET PO SCH (22:14)
[2017-01-18] MEDS: INSULIN ASPART 100 UNIT/ML SQ PRN (22:30)
--- NOTE | 2017-01-18 22:30 | NUR ---
BGM. HS BGM 245. 2UNITS SLIDING SCALE GIVEN. PT TAKES SCHEDULED MEDS WHOLE WITH SIPS OF WATER. ASSIST TO BR USING FWW AND GAITBELT WITH 1 ASSIST. PT ABLE TO MANAGE HYGIENE SELF AND CLOTHING (PULLUP CHANGE) WITH SBA.
[2017-01-19 00:34] VITALS: PULSE 80; RESP 16
--- NOTE | 2017-01-19 03:47 | NUR ---
Chart Check 24 hour chart check completed
[2017-01-19 05:10] LABS: BASOPHILS % (AUTO) 0.6 % (0-2); EOSINOPHILS # (AUTO) 0.3 T/MM3 (0-0.5); EOSINOPHILS % (AUTO) 4.6 % (0-4); HCT - HEMATOCRIT 39.1 % (36-46); HGB - HEMOGLOBIN 12.4 GM/DL (12-16); IMMATURE GRANULOCYTE # (AUTO) 0.08 T/MM3 (0.00-0.03); IMMATURE GRANULOCYTE % (AUTO) 1.2 % (0.0-0.5); LYMPHOCYTES # (AUTO) 1.6 T/MM3 (1-4.8); LYMPHOCYTES % (AUTO) 23.6 % (23-45); MEAN CORPUSCULAR HGB 30.1 UUG (26-34); MEAN CORPUSCULAR HGB CONC(MCHC 31.7 GM/DL (31-37); MEAN CORPUSCULAR VOLUME 94.9 UM3 (80-100); MONOCYTES # (AUTO) 0.6 T/MM3 (0-0.8); MONOCYTES % (AUTO) 9.3 % (0-9.0); NEUTROPHILS #(AUTO)-ABSOLUTE 4.2 T/MM3 (1.8-7.7); NEUTROPHILS % (AUTO) 60.7 % (33-66); RED BLOOD COUNT 4.12 M/MM3 (4.00-5.20); WBC - WHITE BLOOD COUNT 6.9 T/MM3 (4.5-11.0)
[2017-01-19 05:15] LABS: ANION GAP 8 MEQ/L (5-15); BUN/CREATININE RATIO 37 RATIO (6-26); CALCIUM 9.8 MG/DL (8.4-10.2); CHLORIDE 96 MEQ/L (98-107); CO2 - CARBON DIOXIDE 37 MEQ/L (22-30); CREATININE 0.7 MG/DL (0.7-1.2); GLOMERULAR FILTRATION RATE 79; GLUCOSE 133 MG/DL (65-110); POTASSIUM 3.9 MEQ/L (3.6-5); SODIUM 141 MEQ/L (134-144)
--- NOTE | 2017-01-19 07:13 | NUR ---
SUMMARY. PT CALLS APPROPRIATE FOR BR. USING FWW AND GAITBELT WITH 1 ASSIST. PT ABLE TO MANAGE CLOTHING AND WIPING SELF. ASSIST WITH PULLUP CHANGE X1. PT HAS BEEN CONT B AND B. PT TAKES MEDS WHOLE WITH SIPS OF WATER. FASTING BGM 146. SCDS ON WHILE IN BED. PT MAKES NEEDS KNOWN.
[2017-01-19] MEDS: PSYLLIUM PO SCH (08:35)
[2017-01-19] MEDS: METFORMIN 500 MG TABLET PO SCH ×2 (08:36→17:55)
[2017-01-19] MEDS: APIXABAN 5 MG TABLET PO SCH ×2 (08:36→21:51)
[2017-01-19] MEDS: DIGOXIN 125 MCG TABLET PO SCH (08:38)
[2017-01-19] MEDS: FOLBIC TABLET PO SCH (08:39)
[2017-01-19] MEDS: FUROSEMIDE 20 MG TABLET PO SCH (08:39)
[2017-01-19 08:40] VITALS: PULSE 109; RESP 20
[2017-01-19] MEDS: CITALOPRAM 10mg TABLET PO SCH (08:40)
[2017-01-19] MEDS: NIACIN 100 MG TABLET PO SCH ×3 (08:40→21:52)
[2017-01-19] MEDS: DOCUSATE SODIUM 100 MG CAPSULE PO SCH ×2 (08:40→21:51)
[2017-01-19] MEDS: CHOLECALCIFEROL 1,000 UNIT TABLET PO SCH (08:40)
[2017-01-19] MEDS: ASPIRIN *EC* 81mg TABLET PO SCH (08:40)
[2017-01-19] MEDS: CALCIUM CARBONATE 600 MG TABLET PO SCH ×2 (08:40→21:51)
[2017-01-19] MEDS: MAGNESIUM OXIDE 400 MG TABLET PO SCH (08:41)
[2017-01-19] MEDS: ASCORBIC ACID 500 MG TABLET PO SCH ×2 (08:41→21:52)
[2017-01-19 08:44] VITALS: BP 107/64; PULSE 109; RESP 20; TEMP 98.7; O2SAT 92
[2017-01-19] MEDS ORDERED: METFORMIN 500 MG TABLET PO SCH (09:00)
--- NOTE | 2017-01-19 11:03 | NUR ---
MARITZA GUNN SCORE IS 9. Addendum: 01/19/17 at 1104 by YANN GALINDO Amended: Links added.
--- NOTE | 2017-01-19 11:38 | NUR ---
CM THIS WORKER VISITED PT IN ROOM, INTRODUCED SELF AND ROLE OF CASE MANAGEMENT. PT STATED SHE PLANS ON RETURNING HOME AFTER DISCHARGE WITH [facility]. PT STATED SHE HAS OXYGEN AND A 2WW AT HOME. PT STATED SHE HAS GOOD FAMILY AND FRIEND SUPPORT NEARBY. PT DENIED ANY NEEDS AT THIS TIME AND WAS ENCOURAGED TO CALL THIS WORKER WITH ANY QUESTIONS/NEEDS. Addendum: 01/19/17 at 1141 by YANN GALINDO Amended: Links added.
--- NOTE | 2017-01-19 12:13 | CONSPD ---
DEMETRI POMPA TRAVEL REGISTERED NURSE PACU 01/19/17 1028: Consultation Info Date DATE: 01/19/17 TIME: 10:25 Date of Consultation: Jan 19, 2017 Attending Physician: EMILEE - Dr. Navarro Hospitalist - Dr. Corrigan Reason for Consultation: A-fib, CAD, DM2 HPI - Adult Date DATE: 01/19/17 TIME: 10:25 General Chief Complaint: Weakness History of Present Illness Veroinka Gonzalez is an 86-year-old woman seen in consultation from Dr. Navarro for medical management of atrial fibrillation, chronic systolic heart failure and valvular heart disease, type 2 diabetes, and chronic kidney disease. Veronika has had 2 recent acute hospitalizations, the first one from 01/01/17 through 01/13/17, and the second time from 01/16/17 through 01/18/17. During her first hospitalization, she was treated for atrial fibrillation and systolic heart failure. She was hypoxic and was discharged home on oxygen and was established with home health. However, she was very weak, and on 01/15/17, she experienced a non-syncopal fall, prompting the second hospitalization and subsequent discharge to IRU. I saw the patient in the morning of 01/19/17 after breakfast. She states that during breakfast she felt her heart pounding quickly, but denied any other symptoms such as chest pain, dyspnea, sweating, nausea, or lightheadedness. By the time she returned to her room, it has resolved. Other than feeling weak, she denies any other concerns. She simply states that she needs to get stronger. She denies any abdominal pain, nausea, vomiting, diarrhea or constipation. She denies dysuria. She has wounds on her right malloy and her right elbow that are dressed. She also has areas of ecchymosis to her extremities. 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 Surgical History Patient's Surgical History: Vaginal Hysterectomy Parathyroidectomy ORIF of left elbow Current Medications Home Meds Active Scripts Furosemide (Furosemide) 20 Mg Tablet, 20 MG PO DAILY for CHF , #30 TAB Prov:RADHA ESCOBAR MD 01/18/17 Metoprolol Tartrate (Lopressor) 50 Mg Tablet, 50 MG PO BIDWM, #60 TAB Prov:RADHA ESCOBAR MD 01/18/17 Digoxin (Lanoxin) 125 Mcg Tablet, 125 MCG PO DAILY for Afib, #30 TAB Prov:RADHA ESCOBAR MD 01/18/17 Benazepril HCl (Benazepril HCl) 10 Mg Tablet, 10 MG PO HS for CHF, #30 TAB Prov:RADHA ESCOBAR MD 01/18/17 Apixaban (Eliquis) 5 Mg Tablet, 2.5 MG PO BID for 30 Days, #30 TAB Prov:CAITIE CARRIZALES APRN 01/13/17 Reported Medications Cyanocobalamin/Folic Acid (Vitamin O17-Svepg Acid Tablet) 1 Each Tablet, 1000 MCG PO DAILY 01/16/17 Aspirin (Aspir 81) 81 Mg Tablet.dr, 81 MG PO DAILY 07/15/16 Calcium Carbonate (Calcium) 600 Mg Tablet, 600 MG PO BID 07/15/16 Magnesium Oxide (Magnesium) 250 Mg Tablet, 250 MG PO DAILY, TAB 07/15/16 Psyllium Seed (with Sugar) (Metamucil Fiber Wafer) 1 Each Wafer, 2 TAB PO DAILY 07/15/16 Niacin (Niacin) 50 Mg Tablet, 50 MG PO TID 07/15/16 Ascorbic Acid (Vitamin C) 1,000 Mg Tablet, 1000 MG PO BID 07/15/16 Cholecalciferol (Vitamin D3) (Vitamin D) 1,000 Unit Capsule, 1000 UNIT PO DAILY 07/15/16 Vitamin E (Dl,Tocopheryl Acet) (Vitamin E) 1,000 Unit Capsule, 1000 UNIT PO Fr@ 0800 07/15/16 Citalopram Hydrobromide (Citalopram HBr) 10 Mg Tablet, 10 MG PO DAILY 07/15/16 Metformin HCl (Metformin HCl) 500 Mg Tablet, 500 MG PO DAILY 07/15/16 Discontinued Reported Medications Levofloxacin (Levofloxacin) 500 Mg Tablet, 500 MG PO ACB, TAB 01/16/17 Potassium Chloride (Klor-Con M10) 10 Meq Tablet, 10 MEQ PO BIDWM, TAB Take 1 tablet, by mouth, 2 times a day with meals. 01/16/17 Amlodipine Besylate/Benazepril (Amlodipine-Benazepril 5-20 mg) 1 Each Capsule, 1 CAP PO DAILY 07/15/16 Discontinued Scripts Furosemide (Furosemide) 40 Mg Tablet, 1 TAB PO BID for 30 Days, #60 TAB Prov:CAITIE CARRIZALES APRN 01/13/17 Benazepril HCl (Benazepril HCl) 20 Mg Tablet, 20 MG PO DAILY for 30 Days, #30 TAB Prov:CAITIE CARRIZALES APRN 01/13/17 Metoprolol Tartrate (Lopressor) 50 Mg Tablet, 75 MG PO BIDWM for 30 Days, #90 TAB Prov:CAITIE CARRIZALES APRN 01/13/17 Hydrocodone/Apap ([place] 5-325 Tablet) 5-325 Tablet, 1 TAB PO HS and PRN for PAIN , #30 TAB 0 Refills Prov:ORLANDO HARDIN MD 07/18/16 Allergies: Coded Allergies: NKDA (Verified Allergy, Unknown, 01/16/17) Family History Family History: Father- CAD Mother- Ovarian Cancer, at 57 Social History Smoking Status: Never smoker Does patient use chewing tobac: No Second Hand Exposure: No Substance Use Type: does not use Alcohol Intake: none Marital Status: Single Housing: apartment Current Occupational Status: retired Advance Directives: Yes DNR, Yes DPOA for Healthcare Only ([facility] ) Review of Systems Constitutional: REPORTS: weakness, DENIES: appetite decrease, chills, dizziness , fever Eyes Vision: REPORTS: other (wears glasses; sees eye doctor at least once/year), DENIES: vision changes ENMT Sinuses: NOT FOUND: congestion, rhinorrhea Mouth/Throat: DENIES: sore throat Cardiovascular DENIES: chest pain, dyspnea on exertion Rhythm/Rate: other (pounding HR at breakfast - resolved) Vascular: DENIES: pedal edema Pulmonary Respiratory: DENIES: cough, dyspnea GI Upper Abdomen: DENIES: abdominal swelling, nausea, pain, vomiting Lower Abdomen: DENIES: diarrhea General: DENIES: dysuria, frequency Musculoskeletal General: weakness, DENIES: pain Lumbar: DENIES: pain Integumentary Skin: other (bruising & skin tears), sores (chronic wound to elbow), DENIES: rash Neurological General: weakness, DENIES: headache, numbness, seizures, syncope, tingling Psychiatric Psychiatric: DENIES: depression Hematologic/Lymphatic easy bruising, DENIES: anemia Allergic/Immunological DENIES: frequent infections All Other Systems All Other Systems: Reviewed (remainder of 10-point ROS Neg.) Physical Exam General General Nourishment: well nourished, well developed Vital Signs Vital Signs Date Time Temp Pulse Resp B/P Pulse Ox O2 Delivery O2 Flow Rate FiO2 01/19/17 08:44 98.7 109 20 107/64 92 Room Air 01/18/17 20:00 2.00 Height (Feet): 5 Height (Inches): 5.00 Eyes Brief: FOUND: PERRL, NOT FOUND: scleral icterus ENMT Brief: FOUND: mucosa moist, NOT FOUND: pharnyx erythema Neck Brief: NOT FOUND: adenopathy Respiratory Auscultation: FOUND: decreased (at both bases, especially to right), NOT FOUND : rales, rhonchi, wheezes Cardiovascular Auscultation: FOUND: S1, S2, irregular, NOT FOUND: regular Murmur: FOUND: systolic (2/6) Peripheral Pulses: 2+: Dorasalis Pedis (L), Dorsalis Pedis (R), Posterior Tibial (L), Posterior Tibial (R), Radial (L), Radial (R) Edema: 0: Anasarca, Arm (L), Arm (R), Face, Leg (L), Leg (R) Abdomen Inspection: FOUND: distention (mild) Palpation: FOUND: soft, NOT FOUND: involuntary guarding, tender, voluntary guarding Auscultation: FOUND: hyperactive Lymphatic (brief) Lymphatic Brief: NOT FOUND: lymphedema Musculoskeletal (brief) Musculoskeletal Brief: FOUND: extremities move equally Integumentary (brief) Integumentary Brief: FOUND: dry, pink, warm Comments dressings to right elbow, right malloy areas of ecchymosis to extremities Integumentary General: FOUND: dry, warm Color: FOUND: pink Neurologic (brief) Neurological Brief: FOUND: cranial 2-12 intact (grossly) Neurologic GCS Eye Opening: (4)Spontaneous GCS Verbal: (5)Oriented GCS Motor: (6)Obeys Commands RN Documented GCS Total: 15 Psychiatric (brief) FOUND: alert, attentive, normal affect, oriented Laboratory Laboratory Tests Test 01/18/17 21:18 4/25/17 04:31 01/19/17 06:29 Glucometer 245mg/dL 146mg/dL White Blood Count 6.9T/MM3 Red Blood Count 4.12M/MM3 Hemoglobin 12.4GM/DL Hematocrit 39.1% Mean Corpuscular Volume 94.9UM3 Mean Corpuscular Hemoglobin 30.1UUG Mean Corpuscular Hemoglobin Concent 31.7GM/DL RDW Standard Deviation 51.5FL Platelet Count 270T/MM3 Mean Platelet Volume 10.0UM3 Immature Granulocyte % (Auto) 1.2% Neutrophils (%) (Auto) 60.7% Lymphocytes (%) (Auto) 23.6% Monocytes (%) (Auto) 9.3% Eosinophils (%) (Auto) 4.6% Basophils (%) (Auto) 0.6% Absolute Immature Granulocyte (auto 0.08T/MM3 Absolute Neutrophils (auto) 4.2T/MM3 Absolute Lymphocytes (auto) 1.6T/MM3 Absolute Monocytes (auto) 0.6T/MM3 Absolute Eosinophils (auto) 0.3T/MM3 Absolute Basophils (auto) 0.0T/MM3 Turbidity < 20 Sodium Level 141MEQ/L Potassium Level 3.9MEQ/L Chloride Level 96MEQ/L Carbon Dioxide Level 37MEQ/L Anion Gap 8MEQ/L Blood Urea Nitrogen 26.0MG/DL Creatinine 0.7MG/DL Glomerular Filtration Rate Calc 79 BUN/Creatinine Ratio 37RATIO Glucose Level 133MG/DL Calculated Osmolality 278MOSM/KG Calcium Level 9.8MG/DL Icterus Index < 2 Chemistry Specimen Hemolysis < 15 Impression/Recommendation Problems: (1) Weakness Status: Acute (2) Hypoxia Status: Acute Assessment & Plan: Sent home with oxygen on 01/13/17, after first hospitalization. (3) Atrial fibrillation Status: Chronic (4) Chronic systolic (congestive) heart failure Status: Chronic Assessment & Plan: Echocardiogram 01/09/17 IMPRESSION 1. Global hypokinesia with ejection fraction of about 40%. 2. Concentric left ventricular hypertrophy. 3. Mitral annulus calcification with mild mitral regurgitation. 4. Moderate aortic stenosis with a valve area of 1.2 cm2 with moderate aortic insufficiency. 5. Mild tricuspid regurgitation with normal estimated pulmonary artery systolic pressure of 32. (5) Valvular disease Status: Chronic (6) HTN (hypertension) Status: Chronic (7) Diabetes mellitus Status: Chronic Qualifiers: Diabetes mellitus type: type 2 Diabetes mellitus complication status: with hyperglycemia Diabetes mellitus buttermaker insulin use: without care home use Qualified Codes: E11.65 - Type 2 diabetes mellitus with hyperglycemia (8) Chronic wound of extremity Status: Chronic Recommendation Agree with admission to IRU. Hypoxia - continue oxygen. A-fib - pt describes pounding this morning during breakfast, but it has resolved. Continue with Lopressor and digoxin. If palpitations/pounding recurs, consider telemetry or increasing BB. Continue Eliquis. HTN & CHF - continue benazepril, furosemide, and above meds. DM2 with hyperglycemia - Metformin was increased today to BID - monitor response. Thank you for this consultation. We will follow Mrs. Gonzalez along with you during her IRU course. WILLI CORRIGAN MD 01/19/171937: Past Medical History Current Medications Home Meds Active Scripts Furosemide (Furosemide) 20 Mg Tablet, 20 MG PO DAILY for CHF , #30 TAB Prov:RADHA ESCOBAR MD 01/18/17 Metoprolol Tartrate (Lopressor) 50 Mg Tablet, 50 MG PO BIDWM, #60 TAB Prov:RADHA ESCOBAR MD 01/18/17 Digoxin (Lanoxin) 125 Mcg Tablet, 125 MCG PO DAILY for Afib, #30 TAB Prov:RADHA ESCOBAR MD 01/18/17 Benazepril HCl (Benazepril HCl) 10 Mg Tablet, 10 MG PO HS for CHF, #30 TAB Prov:RADHA ESCOBAR MD 01/18/17 Apixaban (Eliquis) 5 Mg Tablet, 2.5 MG PO BID for 30 Days, #30 TAB Prov:CAITIE CARRIZALES APRN 01/13/17 Reported Medications Cyanocobalamin/Folic Acid (Vitamin K61-Lhmqv Acid Tablet) 1 Each Tablet, 1000 MCG PO DAILY 01/16/17 Aspirin (Aspir 81) 81 Mg Tablet.dr, 81 MG PO DAILY 07/15/16 Calcium Carbonate (Calcium) 600 Mg Tablet, 600 MG PO BID 07/15/16 Magnesium Oxide (Magnesium) 250 Mg Tablet, 250 MG PO DAILY, TAB 07/15/16 Psyllium Seed (with Sugar) (Metamucil Fiber Wafer) 1 Each Wafer, 2 TAB PO DAILY 07/15/16 Niacin (Niacin) 50 Mg Tablet, 50 MG PO TID 07/15/16 Ascorbic Acid (Vitamin C) 1,000 Mg Tablet, 1000 MG PO BID 07/15/16 Cholecalciferol (Vitamin D3) (Vitamin D) 1,000 Unit Capsule, 1000 UNIT PO DAILY 07/15/16 Vitamin E (Dl,Tocopheryl Acet) (Vitamin E) 1,000 Unit Capsule, 1000 UNIT PO Fr@ 0800 07/15/16 Citalopram Hydrobromide (Citalopram HBr) 10 Mg Tablet, 10 MG PO DAILY 07/15/16 Metformin HCl (Metformin HCl) 500 Mg Tablet, 500 MG PO DAILY 07/15/16 Discontinued Reported Medications Levofloxacin (Levofloxacin) 500 Mg Tablet, 500 MG PO ACB, TAB 01/16/17 Potassium Chloride (Klor-Con M10) 10 Meq Tablet, 10 MEQ PO BIDWM, TAB Take 1 tablet, by mouth, 2 times a day with meals. 01/16/17 Amlodipine Besylate/Benazepril (Amlodipine-Benazepril 5-20 mg) 1 Each Capsule, 1 CAP PO DAILY 07/15/16 Discontinued Scripts Furosemide (Furosemide) 40 Mg Tablet, 1 TAB PO BID for 30 Days, #60 TAB Prov:CAITIE CARRIZALES APRN 01/13/17 Benazepril HCl (Benazepril HCl) 20 Mg Tablet, 20 MG PO DAILY for 30 Days, #30 TAB Prov:CAITIE CARRIZALES APRN 01/13/17 Metoprolol Tartrate (Lopressor) 50 Mg Tablet, 75 MG PO BIDWM for 30 Days, #90 TAB Prov:CAITIE CARRIZALES APRN 01/13/17 Hydrocodone/Apap ([place] 5-325 Tablet) 5-325 Tablet, 1 TAB PO HS and PRN for PAIN , #30 TAB 0 Refills Prov:ORLANDO HARDIN MD 07/18/16 Allergies: Coded Allergies: NKDA (Verified Allergy, Unknown, 01/16/17) Impression/Recommendation Impression I have independently evaluated and examined this patient. I reviewed the chart, the patient's history, and the TRAVEL REGISTERED NURSE PACU's documented findings as above. We discussed and formulated the assessment and plan as above with additions as below: Mrs. Gonzalez is known from prior admission for A. fib with RVR. She converted to sinus rhythm prior to discharge but subsequently was readmitted with fall and inability to get up independently. She denies dizziness prior to the fall at home and think she may have lost her balance but is vague about circumstances. Now she simply describes generalized weakness. She denies palpitations or chest pain. Patient is hard of hearing but otherwise alert and pleasant. Supplemental oxygen is in use as it was at discharge about a week ago. Cardiac rhythm was relatively regular when I saw her with a 2-3/6 nearly pansystolic murmur present Lungs are clear with good airflow. Patient reported to be in atrial fibrillation during most recent acute stay, rhythm regular currently. EKG to be obtained to clarify current rhythm. Orthostasis not demonstrated during first of recent hospitalizations, monitor intermittently. Continue metoprolol/Eliquis. HCO3 37, increased from 27 on 01/08/17. ABG suggested mild carbon dioxide retention but suspect there is also a component of prerenal azotemia contributing. If continues to climb will need further assessment of volume status versus PCO2. DEMETRI POMPA APRN Jan 19, 2017 10:28 WILLI CORRIGAN MD Jan 19, 2017 19:38
[2017-01-19 16:00] VITALS: BP 113/58; PULSE 81; RESP 12; TEMP 96.5; O2SAT 98
--- NOTE | 2017-01-19 18:34 | HPPDOC ---
HPI Date DATE: 01/19/17 TIME: 18:25 General Chief Complaint: Weakness History of Present Illness 86 yo female with debility after new onset Atrial Fib. Pt was admitted early December with new onset Afib. She has a hx of chf, ckd and DM type II. She was in the hospital for nearly two weeks due to Afib and chf exacerbation. She was discharged 01/13, but had multiple falls between 01/13 and 01/16. 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 Surgical History Patient's Surgical History: Vaginal Hysterectomy Parathyroidectomy ORIF of left elbow Current Medications Home Meds Active Scripts Furosemide (Furosemide) 20 Mg Tablet, 20 MG PO DAILY for CHF , #30 TAB Prov:RADHA ESCOBAR MD 01/18/17 Metoprolol Tartrate (Lopressor) 50 Mg Tablet, 50 MG PO BIDWM, #60 TAB Prov:RADHA ESCOBAR MD 01/18/17 Digoxin (Lanoxin) 125 Mcg Tablet, 125 MCG PO DAILY for Afib, #30 TAB Prov:RADHA ESCOBAR MD 01/18/17 Benazepril HCl (Benazepril HCl) 10 Mg Tablet, 10 MG PO HS for CHF, #30 TAB Prov:RADHA ESCOBAR MD 01/18/17 Apixaban (Eliquis) 5 Mg Tablet, 2.5 MG PO BID for 30 Days, #30 TAB Prov:CAITIE CARRIZALES APRN 01/13/17 Reported Medications Cyanocobalamin/Folic Acid (Vitamin I82-Lzfis Acid Tablet) 1 Each Tablet, 1000 MCG PO DAILY 01/16/17 Aspirin (Aspir 81) 81 Mg Tablet.dr, 81 MG PO DAILY 07/15/16 Calcium Carbonate (Calcium) 600 Mg Tablet, 600 MG PO BID 07/15/16 Magnesium Oxide (Magnesium) 250 Mg Tablet, 250 MG PO DAILY, TAB 07/15/16 Psyllium Seed (with Sugar) (Metamucil Fiber Wafer) 1 Each Wafer, 2 TAB PO DAILY 07/15/16 Niacin (Niacin) 50 Mg Tablet, 50 MG PO TID 07/15/16 Ascorbic Acid (Vitamin C) 1,000 Mg Tablet, 1000 MG PO BID 07/15/16 Cholecalciferol (Vitamin D3) (Vitamin D) 1,000 Unit Capsule, 1000 UNIT PO DAILY 07/15/16 Vitamin E (Dl,Tocopheryl Acet) (Vitamin E) 1,000 Unit Capsule, 1000 UNIT PO Fr@ 0800 07/15/16 Citalopram Hydrobromide (Citalopram HBr) 10 Mg Tablet, 10 MG PO DAILY 07/15/16 Metformin HCl (Metformin HCl) 500 Mg Tablet, 500 MG PO DAILY 07/15/16 Discontinued Reported Medications Levofloxacin (Levofloxacin) 500 Mg Tablet, 500 MG PO ACB, TAB 01/16/17 Potassium Chloride (Klor-Con M10) 10 Meq Tablet, 10 MEQ PO BIDWM, TAB Take 1 tablet, by mouth, 2 times a day with meals. 01/16/17 Amlodipine Besylate/Benazepril (Amlodipine-Benazepril 5-20 mg) 1 Each Capsule, 1 CAP PO DAILY 07/15/16 Discontinued Scripts Furosemide (Furosemide) 40 Mg Tablet, 1 TAB PO BID for 30 Days, #60 TAB Prov:CAITIE CARRIZALES APRN 01/13/17 Benazepril HCl (Benazepril HCl) 20 Mg Tablet, 20 MG PO DAILY for 30 Days, #30 TAB Prov:CAITIE CARRIZALES APRN 01/13/17 Metoprolol Tartrate (Lopressor) 50 Mg Tablet, 75 MG PO BIDWM for 30 Days, #90 TAB Prov:CAITIE CARRIZALES APRN 01/13/17 Hydrocodone/Apap ([place] 5-325 Tablet) 5-325 Tablet, 1 TAB PO HS and PRN for PAIN , #30 TAB 0 Refills Prov:ORLANDO HARDIN MD 07/18/16 Allergies: Coded Allergies: NKDA (Verified Allergy, Unknown, 01/16/17) Family History Family History: Father- CAD Mother- Ovarian Cancer, at 57 Social History Smoking Status: Never smoker Does patient use chewing tobac: No Second Hand Exposure: No Substance Use Type: does not use Alcohol Intake: none Marital Status: Single Housing: apartment Current Occupational Status: retired Advance Directives: Yes DNR, Yes DPOA for Healthcare Only ([facility], [facility] ) Review of Systems Constitutional: REPORTS: weakness, weight loss Cardiovascular see HPI Rhythm/Rate: see HPI Pulmonary Respiratory: see HPI Musculoskeletal General: see HPI All Other Systems All Other Systems: Reviewed Physical Exam General General Nourishment: thin, adult General Body Habitus: well groomed Vital Signs Vital Signs Date Time Temp Pulse Resp B/P Pulse Ox O2 Delivery O2 Flow Rate FiO2 01/19/17 16:00 96.5 81 12 113/58 98 Nasal Cannula 1.50 Height (Feet): 5 Height (Inches): 5.00 Eyes Brief: FOUND: EOMI, PERRL ENMT Brief: FOUND: TM clear, TM good light reflex Neck Brief: NOT FOUND: adenopathy, carotid bruits, thyromegaly Respiratory Brief: FOUND: clear all morrison, equal bilaterally, NOT FOUND: rales Cardiovascular (brief) Cardiac Brief: FOUND: regular rate (no iregularity heard), regular rhythm Capillary Refill: <2 sec Abdomen (brief) Abdominal Brief: FOUND: BS normo active x4, soft, NOT FOUND: tender Musculoskeletal (brief) Comments generalized weakness, diff standing without walker. Neurologic RN Documented GCS Eye Opening: (4)Spontaneous Verbal: (5)Oriented Motor: (6)Obeys Commands Total: Laboratory Laboratory Tests Test 01/18/17 21:18 01/19/17 04:31 01/19/17 06:29 01/19/17 11:14 Glucometer 245mg/dL 146mg/dL 241mg/dL White Blood Count 6.9T/MM3 Red Blood Count 4.12M/MM3 Hemoglobin 12.4GM/DL Hematocrit 39.1% Mean Corpuscular Volume 94.9UM3 Mean Corpuscular Hemoglobin 30.1UUG Mean Corpuscular Hemoglobin Concent 31.7GM/DL RDW Standard Deviation 51.5FL Platelet Count 270T/MM3 Mean Platelet Volume 10.0UM3 Immature Granulocyte % (Auto) 1.2% Neutrophils (%) (Auto) 60.7% Lymphocytes (%) (Auto) 23.6% Monocytes (%) (Auto) 9.3% Eosinophils (%) (Auto) 4.6% Basophils (%) (Auto) 0.6% Absolute Immature Granulocyte (auto 0.08T/MM3 Absolute Neutrophils (auto) 4.2T/MM3 Absolute Lymphocytes (auto) 1.6T/MM3 Absolute Monocytes (auto) 0.6T/MM3 Absolute Eosinophils (auto) 0.3T/MM3 Absolute Basophils (auto) 0.0T/MM3 Turbidity < 20 Sodium Level 141MEQ/L Potassium Level 3.9MEQ/L Chloride Level 96MEQ/L Carbon Dioxide Level 37MEQ/L Anion Gap 8MEQ/L Blood Urea Nitrogen 26.0MG/DL Creatinine 0.7MG/DL Glomerular Filtration Rate Calc 79 BUN/Creatinine Ratio 37RATIO Glucose Level 133MG/DL Calculated Osmolality 278MOSM/KG Calcium Level 9.8MG/DL Icterus Index < 2 Chemistry Specimen Hemolysis < 15 Test 01/19/17 16:55 Glucometer 123mg/dL Assessment & Plan Problems: (1) Myopathy Assessment & Plan: Requiring PT adn OT involvement under inpatient scenario due to chf and afib. Pt is high risk for another fall with injury and possible traumatic fracture. (2) Weakness Status: Acute Assessment & Plan: PT and OT will work with plan of care to increase strength , stamina and stability. (3) Systolic heart failure Status: Acute Assessment & Plan: medical to manage (4) Hypoxia Status: Acute Assessment & Plan: medical to manage (5) Atrial fibrillation with RVR Status: Resolved Assessment & Plan: stable, medical to manage Code Status Do Not Resuscitate Interventions to Obtain Goals PT Treatment Plan: Therapeutic Exercise, Gait Training, Functional Activities , Patient/Family Education OT Treatment Plan: ADL's (basic care), Ther. Exercise for ADL's, UE Functional Training, Balance Training, Pt./Family Education, IADL's Hospital Course Summary Disclaimer The hospital course summary below is not to be considered part of the above Progress Note. STEPHAN MELGOZA MD Jan 19, 2017 18:26
--- NOTE | 2017-01-19 18:37 | IRU24PDOC ---
24 Hour Post Admission Eval Relevant Changes Relevant Changes: No I have reviewed the patient's information and concur with the finding and results of the pre-admission screen. Certification I certify the patient for rehabilitation. Patient Condition Prior Medical Conditions: (1) Myopathy Additional Information: Requiring PT adn OT involvement under inpatient scenario due to chf and afib. Pt is high risk for another fall with injury and possible traumatic fracture. (2) Weakness Status: Acute Additional Information: PT and OT will work with plan of care to increase strength , stamina and stability. (3) Systolic heart failure Status: Acute Additional Information: medical to manage (4) Hypoxia Status: Acute Additional Information: medical to manage (5) Atrial fibrillation with RVR Status: Resolved Additional Information: stable, medical to manage Current Medical Conditions: (1) Myopathy Additional Information: Requiring PT adn OT involvement under inpatient scenario due to chf and afib. Pt is high risk for another fall with injury and possible traumatic fracture. (2) Weakness Status: Acute Additional Information: PT and OT will work with plan of care to increase strength , stamina and stability. (3) Systolic heart failure Status: Acute Additional Information: medical to manage (4) Hypoxia Status: Acute Additional Information: medical to manage (5) Atrial fibrillation with RVR Status: Resolved Additional Information: stable, medical to manage Prior Functional Condition Lives With: Alone Residence Type: Private home/apartment Assistive Devices: Front Wheeled Walker Prior Functional Status: Indep. at home or school Current Functional Status Failed Alternative Therapy Tri: Arrived from acute care Patient Requirements * Patient has been determined to have significant functional limitations requiring at least two therapy disciplines. * Rehabilitation medical practitioner will provide admission approval, assessment and oversight and program coordination at least daily. * Intensive rehabilitative nursing services on site and available 24 hours a day. * The treatment plan will be developed within 24 hours of admission. * Interdisciplinary and goal oriented treatment by professional nursing, healthcare social worker, and rehabilitation therapist. * Interdisciplinary team meeting weekly inclusive of ongoing comprehensive discharge planning. First team meeting by . Weekly meetings to follow. * Rehab Physician is the team meeting leader. * Pharmacy and diagnostic services will be available. * Ongoing comprehensive rehab program with at least 2 disciplines and greater than or equal to 3 hours a day, 5 days a week. Limitations require: limited mobility, ADL impairment, respiratory impairment Physical Therapy Minutes: 90 Occupational Therapy Minutes: 90 Therapy The patient is to receive therapy at least 5 days a week. Current Functional Status: Using assistive device PT Treatment Plan: Therapeutic Exercise, Gait Training, Functional Activities , Patient/Family Education Treatment Plan Frequency: five times per week Treatment Plan Duration: two weeks Plan of Care Comment: 6x/wk for 1st wk; 5x/wk for 2nd and 3rd wks. OT Treatment Plan: ADL's (basic care), Ther. Exercise for ADL's, UE Functional Training, Balance Training, Pt./Family Education, IADL's OT Treatment Plan Frequency: five times per week OT Treatment Plan Duration: three weeks ROM Comment: LE functional Muscle Weakness Location: Left Lower Extremity, Right Lower Extremity Complication/Comorbidities Patient Complication Risk: (1) Myopathy Comments: Requiring PT adn OT involvement under inpatient scenario due to chf and afib. Pt is high risk for another fall with injury and possible traumatic fracture. (2) Weakness Status: Acute Comments: PT and OT will work with plan of care to increase strength , stamina and stability. (3) Systolic heart failure Status: Acute Comments: medical to manage (4) Hypoxia Status: Acute Comments: medical to manage (5) Atrial fibrillation with RVR Status: Resolved Comments: stable, medical to manage Impact on Functional Outcomes Recovery will be slow, but sig improvement potential noted. Barriers to Discharge: weakness, endurance, balance, medical stability Plan to Avoid Complications Plan to Avoid Complications The patient cannot receive this care in a lesser intensive setting such as Custodial or Outpatient Therapy due to the patient requiring the following supervision due to chf, afib and risk of fall with injury due to myopathy. The patient requires oversight by a rehabilitation physician to manage their rehabilitation treatment plan and the multidisciplinary approach to care that can only be provided in an IRF and requires a multidisciplinary approach to care , provided by professional PTs, OTs, STs, dieticians, RTs, rehabilitation nurses and is not available in lesser levels of care. The frequency and duration for therapy, as recommended by the professional Rehabilitation therapists, meet the patient's initial rehabilitation treatment plan needs and will be further evaluated on a weekly basis for progress and/or changes needed. STEPHAN MELGOZA MD Jan 19, 2017 18:37
--- NOTE | 2017-01-19 20:04 | NUR ---
SHIFT SUMMARY PT HAS BEEN PLEASANT AND COOPERATIVE. HAS BEEN OUT TO DINING ROOM FOR MEALS. AMBULATES WITH FWW AND GAIT BELT. PT HAS BEEN ON O2 AT 1.5L. PT HAS HAD VISITORS ON AND OFF TODAY. PT IS CURRENTLY UP IN RECLINER.
[2017-01-19] MEDS: BENAZEPRIL 10 MG TABLET PO SCH (21:53)
[2017-01-19] MEDS: INSULIN ASPART 100 UNIT/ML SQ PRN (22:00)
[2017-01-19] MEDS: ACETAMINOPHEN 325 MG TABLET PO PRN (22:01)
[2017-01-19 23:11] VITALS: PULSE 80; RESP 16
[2017-01-20] VITALS (8 sets, daily range): BP systolic 122–145; BP diastolic 57–76; PULSE 57–101; RESP 18–36; TEMP 97.6–98.3; O2SAT 93–96
--- NOTE | 2017-01-20 02:01 | NUR ---
STATUS. PT HAS BEEN ALERT AND OX3. CALLS APPROPRIATELY. MAKES NEEDS KNOWN. SCDS ON WHILE IN BED.
--- NOTE | 2017-01-20 04:32 | NUR ---
Chart Check 24 hour chart check completed
--- NOTE | 2017-01-20 06:45 | NUR ---
SUMMARY. PT CALLS FOR BR ASSIST. USING FWW AND GAITBELT WITH SBA. PT ABLE TO MANAGE CLOTHING AND WIPING WITH SBA. SCDS ON WHILE IN BED.
[2017-01-20] MEDS: PSYLLIUM PO SCH (08:55)
[2017-01-20] MEDS: CALCIUM CARBONATE 600 MG TABLET PO SCH ×2 (08:56→21:53)
[2017-01-20] MEDS: CHOLECALCIFEROL 1,000 UNIT TABLET PO SCH (08:57)
[2017-01-20] MEDS: ASPIRIN *EC* 81mg TABLET PO SCH (08:57)
[2017-01-20] MEDS: DOCUSATE SODIUM 100 MG CAPSULE PO SCH ×2 (08:57→21:53)
[2017-01-20] MEDS: METFORMIN 500 MG TABLET PO SCH ×2 (08:57→18:18)
[2017-01-20] MEDS: FOLBIC TABLET PO SCH (08:57)
[2017-01-20] MEDS: DIGOXIN 125 MCG TABLET PO SCH (08:57)
[2017-01-20] MEDS: FUROSEMIDE 20 MG TABLET PO SCH (08:57)
[2017-01-20] MEDS: ASCORBIC ACID 500 MG TABLET PO SCH ×2 (08:58→21:52)
[2017-01-20] MEDS: APIXABAN 5 MG TABLET PO SCH ×2 (08:58→21:53)
[2017-01-20] MEDS: NIACIN 100 MG TABLET PO SCH ×3 (08:58→21:53)
[2017-01-20] MEDS: CITALOPRAM 10mg TABLET PO SCH (08:58)
[2017-01-20] MEDS: MAGNESIUM OXIDE 400 MG TABLET PO SCH (08:58)
[2017-01-20] MEDS: ACETAMINOPHEN 325 MG TABLET PO PRN (09:05)
[2017-01-20] MEDS: INSULIN ASPART 100 UNIT/ML SQ PRN ×2 (11:42→22:10)
--- NOTE | 2017-01-20 13:27 | PDIRUTEAM ---
Multidisciplinary Team Meeting Nursing Hx Incontinence: No Bladder Goal: 7+ Complete [place] Y/N: No Bladder Continent or Incontine: Continent Incontinent Product Used: Patient's Own Underwear Number of Times Incontinent of: 0 Cleaning Ability-Bladder: 5 Supervision/Setup Bowel Goal: 7+ Complete [place] Colostomy Y/N: No Bowel Incontinent/Continent: Continent Bowel Number of Accidents: 0 Number of times Incontinent of: 0 Toileting Ability: 3 Moderate Assistance Vital Signs Vital Signs Date Time Temp Pulse Resp B/P Pulse Ox O2 Delivery O2 Flow Rate FiO2 01/20/17 11:18 75 130/60 01/20/17 08:00 98.3 20 96 Nasal Cannula 2.00 Current Medications Current Medications Medications (Trade) Dose Ordered Sig/Philomena Route PRN Reason Start Time Stop Time Status Last Admin Dose Admin Docusate Sodium (Colace) 100 mg BID PO 01/19/17 09:00 01/20/17 08:57 Apixaban (Eliquis) 2.5 mg BID PO 01/19/17 09:00 01/20/17 08:58 Aspirin (Ecotrin) 81 mg DAILY PO 01/19/17 09:00 01/20/17 08:57 Benazepril HCl (LOTENSIN 10 mg) 10 mg HS PO 01/18/17 22:00 01/19/17 21:53 Calcium Carbonate (Caltrate) 600 mg BID PO 01/19/17 09:00 01/20/17 08:56 Citalopram Hydrobromide (Celexa) 10 mg DAILY PO 01/19/17 09:00 01/20/17 08:58 Digoxin (Lanoxin) 125 mcg DAILY PO 01/19/17 09:00 01/20/17 08:57 Furosemide (Lasix) 20 mg DAILY PO 01/19/17 09:00 01/20/17 08:57 Magnesium Oxide (Magox) 200 mg DAILY PO 01/19/17 09:00 01/20/17 08:58 Metoprolol Tartrate (Lopressor) 50 mg BIDWM PO 01/19/17 08:00 01/20/17 08:57 Niacin (Vit. B-3) 50 mg TID PO 01/19/17 09:00 01/20/17 08:58 Ascorbic Acid (VITAMIN C 500 mg Tablet) 1,000 mg BID PO 01/19/17 09:00 01/20/17 08:58 Cholecalciferol (Vit. D3) 1,000 unit DAILY PO 01/19/17 09:00 01/20/17 08:57 Folic Acid/ Cyanocobalamin/ pyridoxin (Folic Acid+B6+B12) 1 tab DAILY PO 01/19/17 09:00 01/20/17 08:57 Psyllium Husk (Metamucil) 1 packet DAILY PO 01/19/17 09:00 01/20/17 08:55 Acetaminophen (Tylenol Regular Strength) 1-2 TABS Q5H PRN PO DISCOMFORT 01/18/17 22:15 01/20/17 09:05 Insulin Aspart (Novolog) SS PRN SQ 01/18/17 22:30 01/20/17 11:42 Metformin HCl (Glucophage) 500 mg BIDWM PO 01/19/17 08:00 01/20/17 08:57 Comments multiple wounds - elbow is chronic, arm abrasions from falll as well as sore on buttocks. Consult wound care. Low dose sliding scale. [place] but nods and it is hard to tell if she is hearing or comprehending or not. Physical Therapy Bed Transfer Ability: 4 Minimal Assistance Bed Transfer Assistance Needed: 1 Person Chair Transfer Ability: 4 Minimal Assistance Chair Transfer Assistance Need: 1 Person Overall Wheelchair Transfer Ab: 3 Moderate Assistance Wheelchair Transfer Assistance: 1 Person Overall Toilet / Commode Trans: 5 Supervision/Setup Ambulation Ability: 5 Supervision/Setup Ambulation Assistance Needed: 1 Person Ambulation Distance: 400 Comments Oxygen is new to her and she is working to coordinate with walking. Still progressing on balance and strength. Occupational Therapy Grooming Ability: 4 Minimal Assistance Bathing Ability: 5 Supervision/Setup Upper Body Dressing Ability: 4 Minimal Assistance Dressing-Upper FIM Score Reaso: Pt. required assist to don bra. Lower Body Dressing Ability: 4 Minimal Assistance Lower Body Dressing Assistance: 1 Person Toileting Assistance Needed: 1 Person Comments In kitchen tried to cook today and forgot walker, cognition issues may also be present. Care Plan Condition at time of discharge: Fair IRU Discharge Disposition: Alf/Facility Interventions/Goals Looking to different d/c plan than to go home. Needs some supervision. FELISHA ordered. Staff will meet with family top discuss plan for d/c. Endurance and safety are barriers to d/c. STEPHAN MELGOZA MD Jan 20, 2017 13:22
--- NOTE | 2017-01-20 21:06 | NUR ---
SHIFT SUMMARY PT HAS BEEN PLEASANT AND COOPERATIVE. PT HAS WORKED WITH THERAPY. AMBULATES WITH FWW AND GAIT BELT. HAS BEEN OUT TO DINING ROOM FOR ALL MEALS. PT REMAINS ON 1.5L O2 NC. PT IS [place].
[2017-01-20] MEDS: BENAZEPRIL 10 MG TABLET PO SCH (21:54)
[2017-01-21] VITALS (13 sets, daily range): BP systolic 105–144; BP diastolic 50–73; PULSE 48–86; RESP 16–36; TEMP 97.9–98.7; O2SAT 95–99
[2017-01-21] MEDS: ACETAMINOPHEN 325 MG TABLET PO PRN (00:01)
--- NOTE | 2017-01-21 07:37 | NUR ---
Summary Pt said she had a difficult time getting to sleep last night. Tylenol given for pain and extra pillows provided for positioning. Pt has been up to BR with one assist and walker.
[2017-01-21] MEDS: APIXABAN 5 MG TABLET PO SCH ×2 (08:35→22:03)
[2017-01-21] MEDS: ASPIRIN *EC* 81mg TABLET PO SCH (08:35)
[2017-01-21] MEDS: DOCUSATE SODIUM 100 MG CAPSULE PO SCH ×2 (08:36→22:02)
[2017-01-21] MEDS: CITALOPRAM 10mg TABLET PO SCH (08:36)
[2017-01-21] MEDS: CALCIUM CARBONATE 600 MG TABLET PO SCH ×2 (08:36→22:03)
[2017-01-21] MEDS: PSYLLIUM PO SCH (08:37)
[2017-01-21] MEDS: DIGOXIN 125 MCG TABLET PO SCH (08:37)
[2017-01-21] MEDS: FUROSEMIDE 20 MG TABLET PO SCH (08:37)
[2017-01-21] MEDS: MAGNESIUM OXIDE 400 MG TABLET PO SCH (08:37)
[2017-01-21] MEDS: CHOLECALCIFEROL 1,000 UNIT TABLET PO SCH (08:38)
[2017-01-21] MEDS: FOLBIC TABLET PO SCH (08:38)
[2017-01-21] MEDS: NIACIN 100 MG TABLET PO SCH ×3 (08:38→22:02)
[2017-01-21] MEDS: METFORMIN 500 MG TABLET PO SCH ×2 (08:39→18:00)
[2017-01-21] MEDS: ASCORBIC ACID 500 MG TABLET PO SCH ×2 (08:39→22:03)
[2017-01-21] MEDS ORDERED: CALMOSEPTINE OINTMENT 3.5 G PACKET TOP PRN (10:45)
--- NOTE | 2017-01-21 10:57 | PDIRUOPC ---
Overall Plan of Care Date DATE: 01/21/17 TIME: 10:55 Relevant Changes Relevant Changes: No I have reviewed the patient's information and concur with the finding and results of the pre-admission screen. Certification I certify the patient for rehabilitation. Patient Impairments Prior Medical Conditions: (1) Myopathy Additional Information: Requiring PT adn OT involvement under inpatient scenario due to chf and afib. Pt is high risk for another fall with injury and possible traumatic fracture. (2) Weakness Status: Acute Additional Information: PT and OT will work with plan of care to increase strength , stamina and stability. (3) Systolic heart failure Status: Acute Additional Information: medical to manage (4) Hypoxia Status: Acute Additional Information: medical to manage (5) Atrial fibrillation with RVR Status: Resolved Additional Information: stable, medical to manage Current Medical Conditions: (1) Myopathy Additional Information: Requiring PT adn OT involvement under inpatient scenario due to chf and afib. Pt is high risk for another fall with injury and possible traumatic fracture. (2) Weakness Status: Acute Additional Information: PT and OT will work with plan of care to increase strength , stamina and stability. (3) Systolic heart failure Status: Acute Additional Information: medical to manage (4) Hypoxia Status: Acute Additional Information: medical to manage (5) Atrial fibrillation with RVR Status: Resolved Additional Information: stable, medical to manage Medical Prognosis Fair IRF Tx That Should Address Dx: (1) Weakness (2) Myopathy Dx Requiring Medical FU: (1) Atrial fibrillation with RVR (2) Hypoxia (3) Systolic heart failure (4) Diabetes mellitus Vital Signs Vital Signs Date Time Temp Pulse Resp B/P Pulse Ox O2 Delivery O2 Flow Rate FiO2 01/21/17 09:00 58 133/59 01/21/17 08:00 98.1 16 95 Room Air 01/20/17 20:07 2.00 Laboratory Laboratory Tests Test 01/19/17 11:14 01/19/17 16:55 01/19/17 21:34 01/20/17 05:58 Glucometer 241mg/dL 123mg/dL 195mg/dL 126mg/dL Test 01/20/17 11:28 01/20/17 16:58 Glucometer 192mg/dL 150mg/dL Anticipated Interventions The patient requires inpatient IRF care for PT, OT, and/or ST for residuals remaining from [] resulting in muscular weakness and strength deficits. Strength Deficits: Left Lower Extremity, Right Lower Extremity FIM Scores Ambulation Distance: 400 Ambulation Ability: 5 Supervision/Setup Ambulation Assistance Needed: 1 Person Stairs: 5 Supervision/Setup Stair Assistance Needed: 1 Person Eating Ability-FIM: 5 Supervision/Setup Grooming Ability: 4 Minimal Assistance Bathing Ability: 5 Supervision/Setup Upper Body Dressing Ability: 4 Minimal Assistance Dressing-Upper FIM Score Reaso: Pt. required assist to don bra. Lower Body Dressing Ability: 4 Minimal Assistance Lower Body Dressing Assistance: 1 Person Toileting Ability: 3 Moderate Assistance Toileting Assistance Needed: 1 Person Bed Transfer Ability: 5 Supervision/Setup Bed Transfer Assistance Needed: 1 Person Chair Transfer Ability: 5 Supervision/Setup Chair Transfer Assistance Need: 1 Person Overall Wheelchair Transfer Ab: 3 Moderate Assistance Overall Toilet / Commode Trans: 5 Supervision/Setup Toilet / Commode Transfer Assi: 1 Person Tub / Shower Transfer Ability: 4 Minimal Assistance Tub / Shower Transfer [place]: 1 Person Comprehension Ability: 6 Modified [place] Comprehension FIM Score Reason: [place] Social Interaction: 6 Modified [place] Problem Solvin Modified [place] Expression Ability: 6 Modified [place] Memory: 6 Modified [place] Current Functional Status Failed Alternative Therapy: Arrived from acute care Patient Requires * Patient has been determined to have significant functional limitations requiring at least two therapy disciplines. * Rehabilitation medical practitioner will provide admission approval, assessment and oversight and program coordination at least daily. * Intensive rehabilitative nursing services on site and available 24 hours a day. * The treatment plan will be developed within 24 hours of admission. * Interdisciplinary and goal oriented treatment by professional nursing, social security assessor, and rehabilitation therapist. * Interdisciplinary team meeting weekly inclusive of ongoing comprehensive discharge planning. First team meeting by . Weekly meetings to follow. * Rehab Physician is the team meeting leader. * Pharmacy and diagnostic services will be available. * Ongoing comprehensive rehab program with at least 2 disciplines and greater than or equal to 3 hours a day, 5 days a week. Limitations require: limited mobility, ADL impairment, respiratory impairment Physical Therapy Minutes: 90 Occupational Therapy Minutes: 90 Therapy The patient is to receive therapy at least 5 days a week. PT Treatment Plan: Therapeutic Exercise, Gait Training, Functional Activities , Patient/Family Education Treatment Plan Frequency: five times per week Treatment Plan Duration: two weeks Plan of Care Comment: 6x/wk for 1st wk; 5x/wk for 2nd and 3rd wks. OT Treatment Plan: ADL's (basic care), Ther. Exercise for ADL's, UE Functional Training, Balance Training, Pt./Family Education, IADL's OT Treatment Plan Frequency: five times per week OT Treatment Plan Duration: three weeks Anticapted LOS/Outcomes Anticipated Functional Outcome limited, but should show improvement Anticipated DC Destination: Penitentiary/Facility Home Safety Plan The patient will be provided with the development of a Home Safety Plan for return to a home or home-like environment and to ensure safety post discharge. Complicating Conditions Complications since IRF admit: (1) Myopathy Comments: Requiring PT adn OT involvement under inpatient scenario due to chf and afib. Pt is high risk for another fall with injury and possible traumatic fracture. (2) Weakness Status: Acute Comments: PT and OT will work with plan of care to increase strength , stamina and stability. (3) Systolic heart failure Status: Acute Comments: medical to manage (4) Hypoxia Status: Acute Comments: medical to manage (5) Atrial fibrillation with RVR Status: Resolved Comments: stable, medical to manage Other Contributing Factors: Plan to Avoid Complications Barriers to Attaining Goals: weakness, balance, endurance, comprehension, medical limitation Plan to Avoid Complications The patient cannot receive this care in a lesser intensive setting such as Correction or Outpatient Therapy due to the patient requiring the following CHF,MD,risk of fall.. The patient requires oversight by a rehabilitation physician to manage their rehabilitation treatment plan and the multidisciplinary approach to care that can only be provided in an IRF and requires a multidisciplinary approach to care , provided by professional PTs, OTs, STs, dieticians, RTs, rehabilitation nurses and is not available in lesser levels of care. The frequency and duration for therapy, as recommended by the professional Rehabilitation therapists, meet the patient's initial rehabilitation treatment plan needs and will be further evaluated on a weekly basis for progress and/or changes needed. STEPHAN MELGOZA MD Jan 21, 2017 10:57
--- NOTE | 2017-01-21 11:21 | NUR ---
MARITZA THIS WORKER VISITED PT IN ROOM. REVIEWED PLAN OF CARE WITH PT, PT WAS AGREEABLE AND SIGNED. THIS WORKER DISCUSSED POSSIBILITY OF D/C TOMORROW. PT DIDN'T KNOW IF SHE WAS STRONG ENOUGH TO GO HOME, STATING SHE "WILL HAVE TO SEE HOW TODAY GOES". THIS WORKER DISCUSSED FAMILY/FRIEND SUPPORT HELPING HER IN HER HOME, POSSIBILITY OF HER HAVING LIFE ALERT. PT WAS AGREEABLE TO HAVING LIFE ALERT. PT STATED SHE HAS HOME HEALTH TWICE A WEEK. PT GAVE THIS WORKER PERMISSION TO CALL HER FAMILY. Addendum: 01/21/17 at 1135 by YANN GALINDO ATTEMPTED TO CALL PT'S SONMARY, PHONE NOT WORKING. CALLED PT'S SONJOE AND LEFT A MESSAGE FOR HIM TO CALL ME BACK ABOUT PT'S D/C PLANNING. Addendum: 01/21/17 at 1342 by YANN GALINDO THIS WORKER LEFT A LIFE ALERT BROCHURE FOR PT AND FAMILY TO REVIEW. DRISS'S -YADI RETURNED THIS WORKER'S CALL ON BEHALF OF DRISS. SHE AND DRISS DISCUSSED FAMILY DIDN'T FEEL PT WAS READY TO RETURN HOME. THEY FELT PT NEEDED TO STAY A FEW MORE DAYS UNTIL SHE IS STRONGER. YADI STATED THAT PT WAS ONLY HAVING HOME HEALTH ONCE A WEEK-MOSTLY HELPING WITH BATHING. YADI THOUGHT LUIS ANTONIO AND DRISS WOULD BE VISITING PT LATER THIS AFTERNOON AND WOULD DISCUSS HOME HEALTH AND LIFE ALERT WITH PT. THIS WORKER SPOKE TO PHYSICAL THERAPY ABOUT PT AND FAMILY'S CONCERN OF PT NOT FEELING STRONG ENOUGH TO BE D/C TOMORROW.
--- NOTE | 2017-01-21 11:37 | PNPDOC ---
IRU Subjective Date DATE: 01/20/17 TIME: 1500 Patient evaluated and seen with medical on 01/20/2017 at approximately 1500 p.m. Note is being entered today. Subjective Pt working with PT and OT ,but communication is an issue. IRU Objective Vital Signs Vital signs Vital Signs Date Time Temp Pulse Resp B/P Pulse Ox O2 Delivery O2 Flow Rate FiO2 01/21/17 09:00 58 133/59 01/21/17 08:00 98.1 16 95 Room Air 01/20/17 20:07 2.00 Height (Feet): 5 Height (Inches): 5.00 Weight (Kilograms): 58.200 General General Appearance: Alert, Disorientated Respiratory (Brief) Respiratory: FOUND: clear all morrison, equal bilaterally Cardiovascular (Brief) Cardiac: FOUND: regular rate, regular rhythm Capillary Refill: <2 sec Laboratory Laboratory Laboratory Tests Test 01/19/17 16:55 01/19/17 21:34 01/20/17 05:58 01/20/17 11:28 Glucometer 123mg/dL 195mg/dL 126mg/dL 192mg/dL Test 01/20/17 16:58 Glucometer 150mg/dL Assessment & Plan Problems: (1) Myopathy Assessment & Plan: Improvement noted with physical therapy and occupational therapy, safety is still an issue. (2) Weakness Status: Acute Assessment & Plan: Stamina and strength is slowly improving. Continue with PT OT plan (3) Systolic heart failure Status: Acute Assessment & Plan: Medical to manage (4) Hypoxia Status: Acute Assessment & Plan: Medical to manage (5) Atrial fibrillation with RVR Status: Resolved Plan/Intensity of Service Concerns about hearing issues versus cognition issues. Kells ordered. DVT Prophylaxis: SCD'S Code Status Do Not Resuscitate Interventions to Obtain Goals PT Treatment Plan: Therapeutic Exercise, Gait Training, Functional Activities , Patient/Family Education OT Treatment Plan: ADL's (basic care), Ther. Exercise for ADL's, UE Functional Training, Balance Training, Pt./Family Education, IADL's Hospital Course Summary Disclaimer The hospital course summary below is not to be considered part of the above Progress Note. STEPHAN MELGOZA MD Jan 21, 2017 11:37
--- NOTE | 2017-01-21 13:36 | WOUNDPN ---
Nurse to Nurse Wound Consult Wound Consult: Veronika is a current [facility] client, being treated for the nonhealing surgical wound on her left elbow. Today there multiple areas of concern being addressed and recommendations made for Dr Navarro to order: Left elbow 0.4x0.1x0.2 gran pink & slough - Roxy moistened with normal saline , cover with mepilex Right elbow 1x0.5x0.1 100% slough & fibrin - cover with mepilex, consult Dr Pierce for sharp debridement Right malloy 5x0.5x0.1 100& gran red, partial thickness - Roxy moistened with normal saline, cover with mepilex Right ischium 1x1x0.1 100% gran red, partial thickness - Roxy moistened with normal saline, cover with mepilex Coccyx 3x3x0.1 white and yellow base with black center, unstageable 0.3x0.3 - protect area with mepilex, apply calmoseptine PRN to ca-ulcer. HOPE BAY RN Jan 21, 2017 13:34
[2017-01-21] MEDS ORDERED: METF500T PO (15:35)
--- NOTE | 2017-01-21 20:53 | NUR ---
Shift summary Patient ambulating with FWW, gait belt, min assist. Transfers with supervision. Patient wears glasses. Wounds to bilateral elbows, right malloy, coccyx, ishium covered with mepilex and assessed by wound team nurse. Patient alert and oriented x3. Oxygen at 2L per N/C.
[2017-01-21] MEDS: BENAZEPRIL 10 MG TABLET PO SCH (22:02)
[2017-01-22 05:31] LABS: BUN/CREATININE RATIO 24 RATIO (6-26); CALCIUM 9.9 MG/DL (8.4-10.2); CHLORIDE 93 MEQ/L (98-107); CREATININE 0.7 MG/DL (0.7-1.2); GLOMERULAR FILTRATION RATE 79; GLUCOSE 116 MG/DL (65-110); MAGNESIUM 1.8 MG/DL (1.6-2.3); SODIUM 141 MEQ/L (134-144)
[2017-01-22 05:38] LABS: ANION GAP 8 MEQ/L (5-15); CO2 - CARBON DIOXIDE 40 MEQ/L (22-30)
[2017-01-22 05:47] LABS: DIGOXIN 0.5 NG/ML (0.8-2.0)
--- NOTE | 2017-01-22 07:49 | NUR ---
SHIFT SUMMARY Patient has ambulated with min assist this shift. She seems slightly unsteady with gait using FWW. Used call light appropriately. All of her many wounds have new dressings put on them. She recounts how she received those wounds and the falls she has had. Was continent of bowel and bladder. Takes meds whole with water.
[2017-01-22 08:00] VITALS: PULSE 83; RESP 24
[2017-01-22] MEDS ORDERED: VITAMIN E 1,000 UNIT CAPSULE PO SCH (08:00)
[2017-01-22 08:05] VITALS: BP 123/63; PULSE 80
[2017-01-22] MEDS: PSYLLIUM PO SCH (09:13)
[2017-01-22 09:14] VITALS: BP 123/63; PULSE 80; RESP 18; TEMP 97.9; O2SAT 95
[2017-01-22 09:15] VITALS: BP 120/65; PULSE 94
[2017-01-22] MEDS: MAGNESIUM OXIDE 400 MG TABLET PO SCH (09:15)
[2017-01-22] MEDS: ASPIRIN *EC* 81mg TABLET PO SCH (09:15)
[2017-01-22] MEDS: APIXABAN 5 MG TABLET PO SCH (09:15)
[2017-01-22] MEDS: METFORMIN 500 MG TABLET PO SCH (09:15)
[2017-01-22 09:16] VITALS: BP 114/58; PULSE 102
[2017-01-22] MEDS: DIGOXIN 125 MCG TABLET PO SCH (09:16)
[2017-01-22] MEDS: FOLBIC TABLET PO SCH (09:16)
[2017-01-22] MEDS: FUROSEMIDE 20 MG TABLET PO SCH (09:16)
[2017-01-22] MEDS: NIACIN 100 MG TABLET PO SCH ×2 (09:17→15:43)
[2017-01-22] MEDS: CITALOPRAM 10mg TABLET PO SCH (09:17)
[2017-01-22] MEDS: CHOLECALCIFEROL 1,000 UNIT TABLET PO SCH (09:17)
[2017-01-22] MEDS: CALCIUM CARBONATE 600 MG TABLET PO SCH (09:17)
[2017-01-22] MEDS: ASCORBIC ACID 500 MG TABLET PO SCH (09:18)
[2017-01-22] MEDS: DOCUSATE SODIUM 100 MG CAPSULE PO SCH (09:18)
--- NOTE | 2017-01-22 11:20 | NUR ---
CM FAMILY MEETING WITH PT, SON'S DRISS (AND CHRIS) AND LUIS ANTONIO. PT STATED SHE DOES NOT KNOW IF SHE FEELS READY TO RETURN HOME. FAMILY STATED THEY DO NOT FEEL COMFORTABLE WITH PT RETURNING HOME. THIS WORKER EXPLAINED TEAM'S RECOMMENDATION OF A SUPERVISED ENVIRONMENT AND ASKED IF FAMILY COULD PROVIDE THIS. THEY STATED NO. THIS WORKER DISCUSSED OPTIONS OF SNU OR INHOME PRIVATE PAY. PT AND FAMILY AGREEABLE TO SNU. PT GAVE PERMISSION TO OPEN PORTALS. CHOICES ARE: [facility], [facility], AND [facility]. Addendum: 01/22/17 at 1123 by MAYDA GALINDO Amended: Links added.
--- NOTE | 2017-01-22 11:36 | NUR ---
MARITZA CALLED DULCE MARIA WITH [facility] AND KLA[facility] WITH [facility]; BOTH ARE FULL, NO AVAILABILITIES. CALLED [facility] WITH [facility]; SHE SAID SHE WILL REVIEW. PORTAL OPENED.
--- NOTE | 2017-01-22 12:56 | PNPDOC ---
Subjective Date DATE: 01/22/17 TIME: 12:51 Subjective Veronika might be leaving today. She states that her boys told her last night that they want her to stay here a few more days, but case management is looking into some other options as well such as prison. Physically, she has been doing okay. Per PT, she has a difficult time recalling safety cues. Veronika herself denies any complaints. She denies feeling short of breath or having any pain. She denied any abdominal pain or GI complaints. Objective Vital Signs Vital signs Vital Signs Date Time Temp Pulse Resp B/P Pulse Ox O2 Delivery O2 Flow Rate FiO2 01/22/17 09:16 102 114/58 01/22/17 09:14 97.9 18 95 Room Air 01/21/17 16:02 3.00 Height (Feet): 5 Height (Inches): 5.00 Weight (Kilograms): 58.200 General General Appearance: Alert, Orientated x 3, Well Nourished, Well Developed, No Acute Distress Eyes (Brief) Eyes: FOUND: PERRL, NOT FOUND: scleral icterus ENMT (Brief) ENMT: FOUND: mucosa moist, NOT FOUND: pharnyx erythema Respiratory (Brief) Respiratory: FOUND: clear all morrison, equal bilaterally Cardiovascular (Brief) Cardiac: FOUND: regular rate, regular rhythm Abdomen (Brief) Abdominal: FOUND: BS normo active x4, soft, NOT FOUND: distended Extremities (Brief) Extremity : Extremity Finding: NOT FOUND: edema Musculoskeletal (Brief) Musculoskeletal: FOUND: extremities move equally, NOT FOUND: tenderness Integumentary (Brief) Integumentary: FOUND: dry, pink, warm Psychiatric (Brief) Psychiatric: FOUND: alert, attentive, normal affect, oriented Laboratory Laboratory Laboratory Tests 01/22/17 04:27 Assessment & Plan Problems: (1) Weakness Status: Acute (2) Hypoxia Status: Acute Assessment & Plan: Sent home with oxygen on 01/13/17, after first hospitalization. (3) Atrial fibrillation Status: Chronic (4) Chronic systolic (congestive) heart failure Status: Chronic Assessment & Plan: Echocardiogram 01/09/17 IMPRESSION 1. Global hypokinesia with ejection fraction of about 40%. 2. Concentric left ventricular hypertrophy. 3. Mitral annulus calcification with mild mitral regurgitation. 4. Moderate aortic stenosis with a valve area of 1.2 cm2 with moderate aortic insufficiency. 5. Mild tricuspid regurgitation with normal estimated pulmonary artery systolic pressure of 32. 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 Considerations being given to home with home health or prison facility. Discussed case with physical therapy, physically, she is doing quite well. However, they are more concerned about her ability to recall safety cues. For this reason, she will be a high fall risk. Will go home with oxygen, as she did after her first hospitalization. Follow-up with primary care physician within one week. We'll also send her home on an increased dose of metformin. BMP was checked this morning. CO2 was 40, otherwise unremarkable. Continue oxygen. Code Status Do Not Resuscitate Hospital Course Summary Disclaimer The hospital course summary below is not to be considered part of the above Progress Note. Hospital Course Summary 01/19/17 Agree with admission to IRU. Hypoxia - continue oxygen. A-fib - pt describes pounding this morning during breakfast, but it has resolved. Continue with Lopressor and digoxin. If palpitations/pounding recurs, consider telemetry or increasing BB. Continue Eliquis. HTN & CHF - continue benazepril, furosemide, and above meds. DM2 with hyperglycemia - Metformin was increased today to BID - monitor response. 01/22/17 Possible discharge today, case management, will discuss options with the patient and her family. Considerations being given to home with home health or prison facility. Discussed case with physical therapy, physically, she is doing quite well. However, they are more concerned about her ability to recall safety cues. For this reason, she will be a high fall risk. Will go home with oxygen, as she did after her first hospitalization. Follow-up with primary care physician within one week. We'll also send her home on an increased dose of metformin. BMP was checked this morning. CO2 was 40, otherwise unremarkable. Continue oxygen. DEMETRI POMPA APRN Jan 22, 2017 12:54
--- NOTE | 2017-01-22 14:12 | PDOCECFAO ---
Admission Orders Admission Orders Admit to: Detention Allergies: Coded Allergies: NKDA (Verified Allergy, Unknown, 01/16/17) Admitting Diagnosis NA Admitting Physician Ridge Melgoza MD Code Status Do Not Resuscitate Anticipated LOS: 30 days or less Rehab Potential: Good Rehab Prognosis: Good Wound/Incision Care: na Evaluations/Treat: PT, OT Detention Certification I certify that SNF services are required to be given on an Inpatient basis because of the patients need for residential care on a continuing basis for the condition(s) for which he/she received inpatient hospital services prior to his/her transfer to the SNF. SNF inpatient care is necessary for the following reasons Wound Care/Assessment RIDGE MELGOZA MD Jan 22, 2017 14:12
--- NOTE | 2017-01-22 14:27 | NUR ---
CM CALL FROM [facility] WITH HHR; THEY CAN ACCEPT PT. TRANSPORT TIME WILL BE AROUND 3 PM. SPOKE WITH PT ABOUT THIS, SHE WAS AGREEABLE. REVIEWED IM WITH PT; SHE SIGNED AND HAD NO QUESTIONS/CONCERNS. THEN, THIS WORKER SPOKE WITH SON DRISS AND PT. BOTH STILL AGREEABLE TO HHR FOR SHORT TERM SKILLED. SON HAD MANY QUESTIONS ABOUT [facility] DC PLANNING, SUCH ASSISTED LIVING VS. PRIVATE PAY INHOME CARE. THIS WORKER ANSWERED ALL QUESTIONS, AND PROVIDED CONTACT INFO IN CASE MORE QUESTIONS ARISE.
--- NOTE | 2017-01-22 14:58 | NUR ---
Shift summary Patient alert and oriented x3. Ambulating with FWW, gait belt, stand by assist with O2 at 3 liters via N/C. Patient stated she went home on O2 last time she was in hospital. Patient continent of bowel and bladder. Wears her own underwear. Patient will be going to [facility] for skilled care. She hopes she can go home from there.
--- NOTE | 2017-01-22 15:06 | NUR ---
CM TIME OUT COMPLETED WITH RN.
== END 2017-01-22 15:25 | DRG 92 ==
PROVIDERS: ADMIT Family Medicine; ATTEND Family Medicine
PROC: F07Z9FZ Gait Training/Functional Ambulation Treatment using Assistive, Adaptive, Supportive or Protective Equipment (ICD-10-PCS; principal; 2017-01-18)
PROC: F07M6ZZ Therapeutic Exercise Treatment of Musculoskeletal System - Whole Body (ICD-10-PCS; 2017-01-18)
PROC: F08Z4ZZ Home Management Treatment (ICD-10-PCS; 2017-01-18)
DX: G72.9 Myopathy, unspecified (principal); I50.22 Chronic systolic (congestive) heart failure; R53.1 Weakness; I11.0 Hypertensive heart disease with heart failure; E11.9 Type 2 diabetes mellitus without complications; I48.91 Unspecified atrial fibrillation; I51.7 Cardiomegaly; Z66 Do not resuscitate; I25.10 Atherosclerotic heart disease of native coronary artery without angina pectoris; Z79.899 Other long term (current) drug therapy; Z79.82 Long term (current) use of aspirin; S81.801D Unspecified open wound, right lower leg, subsequent encounter; S51.001D Unspecified open wound of right elbow, subsequent encounter; X58.XXXD Exposure to other specified factors, subsequent encounter
CPT/HCPCS: 36415; 80048; 80162; 82948; 83735; 85025; 93005